=== PATIENT | female | born 1990 | race Caucasian/White ===

== ENCOUNTER 2018-04-19 21:25 | Emergency (ER) | payer MEDICAID, SELFPAY ==
[2018-04-19 21:34] VITALS: BP 124/76; PULSE 96; RESP 15; TEMP 36.7; O2SAT 97
--- NOTE | 2018-04-19 21:53 | W.ED.GENAD ---
Discharge Plan Disposition Patient Disposition: HOME Condition: Good Discharge Details Chief Complaint: RashLesion Clinical Impression: Hive, Contusion Primary Care Provider: Neema Salinas ED Provider: Anuj Cruz Home Meds and New Rx's Prescriptions: New diphenhydramine-zinc acetate [Benadryl Extra Strength] 2-0.1 % cream 1 applic TP TID Qty: 15 RF: 0 No Action levalbuterol tartrate [Xopenex HFA] 15 GM HFA aerosol inhaler 2 puff Inhalation Q6H PRN PRNQty: 1 RF: 2 epinephrine 0.3 MG/SYR auto-injector 0.3 mg IJ DAILY PRN PRNQty: 1 RF: 0 ibuprofen 600 MG tablet 600 mg PO Q6H PRN PRNQty: 30 RF: 0 Discharge Instructions Instructions: Urticaria (ED) Additional Instructions: Please apply the Benadryl cream to your left upper arm. Please apply the bacitracin Band-Aid to the lesion on your abdomen regularly. Please use Tylenol and Motrin for pain in your finger. If you notice any worsening of your symptoms, or any new symptoms such as vomiting, diarrhea, fever, chills, shortness of breath, chest pain, numbness, weakness, or fainting , please return immediately to the emergency department for reevaluation. Please follow up with your primary care provider as soon as possible for reassessment and reevaluation. As always, it was a pleasure participating in your medical care today. Referrals: Neema Salinas, [employer]ANCE CREW[employer]BER [Primary Care Provider] - Medical Decision Making This is a 28-year-old female who presents with 3 complaints. In regards to her rash on her arm her signs and symptoms are clinically indicative of mild hives, most likely secondary to contact exposure. She has multiple allergies, and she states this looks like the reaction she usually gets with grapefruit exposure, it is pruritic, no evidence of cellulitis. No other significant abnormalities. We will give her a prescription for [id number] Benadryl ointment. With no signs of systemic illness, no evidence of airway compromise, I see no clinical signs suggestive of anaphylaxis. In regards to the small lesion on her anterior abdomen. It was a blood blister with a scab that ripped off. We have given her bacitracin cream, and a Band-Aid placed over it. In regards to her hand there is no evidence of fracture or abnormality. Pain is absolutely minimal. No pain with movement of the joint. Patient does not want an x-ray. I think at the very most it is a mild sprain or contusion. No evidence of clinical fracture. Patient will be discharged home with close follow-up. We discussed red flags which return the patient understands. I have extensively reviewed the treatment plan and discharge instructions with the patient and their family. I have addressed all patient concerns at this time. The patient and family was made aware of what symptoms to monitor for that would warrant a return to the emergency department. Discussed the plan with the patient and family, they demonstrate verbal understanding and agreement with our assessment and plan at this time. HPI General Date/Time Provider Initiated Documentation: 04/19/18 21:52. HPI Narrative: This is a 28-year-old female who presents today for evaluation of 3 complaints. Planes of a rash on her left proximal arm, a small lesion on her lower abdomen, it is sore left thumb. Regards to the rash she states that roughly 2 hours prior to arrival she developed 2 small hives in the proximal posterior component of her arm. They are very itchy. She states that it looks like the reaction she usually gets when she comes in contact with grapefruit. She denies any contact with grapefruit though. She denies any systemic symptoms of difficulty breathing, difficulty swallowing, chest pain shortness of breath systemic itching or systemic rash. She denies any aggravating or relieving components. She has not taken any medications for it. Regards to lesion on her abdomen she states that 48 hours ago she was zipping up her pants and her zipper caught on a varicose vein on her anterior abdomen. There was a small blood blister that occurred, and a blood blister subsequently ruptured, now she has a very tiny hole there. She denies any significant pain, discharge, redness, or warmth. She has no other complaints in regard to this. In regard to her thumb she states that she has mild tenderness on the dorsal aspect of the MCP joint on her left thumb. She is right-hand dominant. Pain is very mild. She feels she might have hit it lightly on something. She denies any pain with movement, or any associated numbness or tingling. She has not taken any Tylenol or Motrin for the pain. Patient denies any other complaints at this time. She denies any pertinent family history or recent surgeries. She denies any IV or illicit drug use. Related Data Home Medications Medication Instructions Recorded Confirmed levalbuterol tartrate [Xopenex HFA] 2 puff INHALATION Q6H PRN PRN #1 11/18/12 04/19/18 inhaler epinephrine 0.3 mg IJ DAILY PRN PRN #1 kit 01/09/16 04/19/18 ibuprofen 600 mg PO Q6H PRN PRN #30 tab 04/06/16 04/19/18 diphenhydramine-zinc acetate 1 applic TP TID #15 gm 04/19/18 [Benadryl Extra Strength] Previous Rx's Medication Instructions Recorded epinephrine 0.3 mg IJ DAILY PRN PRN #1 kit 01/09/16 ibuprofen 600 mg PO Q6H PRN PRN #30 tab 04/06/16 diphenhydramine-zinc acetate 1 applic TP TID #15 gm 04/19/18 [Benadryl Extra Strength] Allergies Allergy/AdvReac Type Severity Reaction Status Date / Time grapefruit [Grapefruit] Allergy Severe HIVES Unverified 04/19/18 21:33 Penicillins Allergy Severe AIRWAY Unverified 04/19/18 21:33 CLOSES UP venom-honey bee Allergy Severe Swelling/Ed Unverified 04/19/18 21:33 [bee venom (honey bee)] arabella latex Allergy RASH, Unverified 04/19/18 21:33 BREAKS OUT General Stated Complaint: RashLesion MATTIE: 4 Review of Systems Review of Systems All systems reviewed & are unremarkable except as noted in HPI and below PFSH Family History Mother Mental disorder Father Multiple sclerosis Medical History Asthma Depression back spasm Social History Smoking/Tobacco Use Status: Current every day Surgical History D&C w/ Suction Ligation of fallopian tube (~11/2012) Tonsillectomy Exam Narrative Exam Narrative: 1.Const: Well-nourished, Well-developed, appearing stated age 2.Eyes: PERRL, no conjunctival injection, and symmetrical lids. 3.ENT: Atraumatic external nose and ears. Moist MM. Neck: Symmetric, trachea midline, No thyromegaly. 4.CVS: +S1/S2, No murmurs or gallops. Peripheral pulses 2+ and equal in all extremities. Brisk capillary refill in all extremities. 5.RESP: Unlabored respiratory effort. Clear to auscultation bilaterally. No wheezes rales or rhonchi 6.GI: Soft, Nontender/Nondistended, No hepatosplenomegaly. No guarding or rebound. 7.MSK: Normocephalic/Atraumatic, Extremities w/o deformity or ttp No cyanosis or clubbing, Normal movement of all extremities. Minimal tenderness on the dorsal aspect of the MCP joint on her left thumb. No significant bruising or swelling. Normal flexion extension abduction and abduction. Normal sensation including two-point discrimination. No significant bony tenderness with movement. No deformity. 8.Skin: Warm, Dry. Patient demonstrates 2 small hives on her posterior proximal left arm. There are roughly 1 cm in diameter. Notably pruritic. Blanching. No signs of fluctuance, or evidence of abscess. Patient also demonstrates a small little skin lesion on her anterior lower abdomen suggestive of a small scab that was ripped off. No active discharge, no signs of significant hole. 9.Neuro: packer denture II-XII grossly intact. Sensation grossly intact, no focal neurologic deficits. 10.Psych: (AAO) x3. Appropriate mood and affect Course Vital Signs Temperature 36.7 C 04/19/18 21:34 Pulse 96 H 04/19/18 21:34 Respiratory Rate 15 04/19/18 21:34 Blood Pressure 124/76 04/19/18 21:34 Pulse Oximetry 97 04/19/18 21:34 Temperature 36.7 C 04/19/18 21:34 Temperature Source Temporal Artery Scan 04/19/18 21:34 Pulse 96 H 04/19/18 21:34 Respiratory Rate 15 04/19/18 21:34 Respiratory Effort Non-Labored 04/19/18 21:39 Blood Pressure 124/76 04/19/18 21:34 Blood Pressure Position Sitting 04/19/18 21:34 Pulse Oximetry 97 04/19/18 21:34 Oxygen Delivery Method Room Air 04/19/18 21:34 Oxygen Flow Rate 0 04/19/18 21:34 Pain Level 0 04/19/18 21:34
[2018-04-19 22:10] VITALS: BP 124/76; PULSE 96; RESP 15; TEMP 36.7; O2SAT 97
== END 2018-04-19 22:08 | disposition home or self-care (01) ==
LOC: ER 23:05
PROVIDERS: Emergency Provider Student in an Organized Health Care Education/Training Program; PCP Nurse Practitioner Family
DX: L50.9 Urticaria, unspecified (principal); S60.112A Contusion of left thumb with damage to nail, initial encounter; X58.XXXA Exposure to other specified factors, initial encounter
CPT/HCPCS: 99283

== ENCOUNTER 2018-06-09 10:38 | Outpatient (CLI) | payer MEDICAID, SELFPAY ==
[2018-06-09 13:19] LABS: Abs Immature Grans 0.01 k/cumm (0.0-0.09); Absolute Basophil Count 0.01 k/cumm (0.0-0.2); Absolute Eosinophil Count 0.11 k/cumm (0.0-0.7); Absolute Lymphocyte Count 1.98 k/cumm (1.2-3.4); Absolute Monocyte Count 0.57 k/cumm (0.11-0.7); Absolute Neutrophil Count 4.09 k/cumm (1.2-6.7); Basophils % 0.1; Eosinophils % 1.6; HCT 40.3 % (36.0-46.0); HGB 13.4 g/dL (12.0-15.5); Immature Grans % 0.1; Lymphocytes % 29.2; Mean Corp. HGB Concentration 33.3 g/dL (32.0-36.0); Mean Corpuscular Hemoglobin 30.2 pg (27.0-33.0); Mean Corpuscular Volume 90.8 fL (80-95); Mean Platelet Volume 13.4 fL (8.0-11.0); Monocytes % 8.4; Neutrophils % 60.6; Platelet Count 138 x1000/uL (130-400); RBC 4.44 m/cumm (4.00-5.20); RBC Distribution Width 12.8 % (11.7-14.6); White Blood Cell Count 6.77 k/cumm (4.4-10.8)
[2018-06-09 13:40] LABS: Anion Gap 6.8 mmol/L (3-11); BUN 16 mg/dL (7-18); CO2 28.2 mmol/L (21.0-32.0); CREATININE 0.84 mg/dL (0.55-1.02); Calcium 8.9 mg/dL (8.5-10.1); Chloride 105 mmol/L (98-107); Cholesterol 160 mg/dL (50-200); Glucose 90 mg/dL (70-100); HDL Cholesterol 30 mg/dL (40-60); LDL CHOLESTEROL 112 mg/dL (<100); Potassium 4.3 mmol/L (3.5-5.1); Sodium 140 mmol/L (136-145); TSH 3.09 uIU/mL (0.358-3.74); Triglyceride 120 mg/dL (30-150)
[2018-06-09 14:00] LABS: FREE T4 0.91 ng/dL (0.76-1.46)
[2018-06-09 14:24] LABS: ESR 16 MM/HR (0-20)
[2018-06-10 12:14] LABS: Lyme Ab w Rflx to Lyme Confirm Negative
[2018-06-10 23:17] LABS: Anaplasma phagocytophilum Negative (Negative); B. miyamotoi PCR Negative (Negative); Babesia divergens/MO-1 Negative (Negative); Babesia duncani Negative (Negative); Babesia microti Negative (Negative); Ehrlichia chaffeensis Negative (Negative); Ehrlichia ewingii/canis Negative (Negative); Ehrlichia muris eauclairensis Negative (Negative)
== END 2018-06-09 10:58 ==
PROVIDERS: PCP Nurse Practitioner Family; Visit Provider Nurse Practitioner Family
DX: R79.89 Other specified abnormal findings of blood chemistry (principal); M25.50 Pain in unspecified joint; Z13.220 Encounter for screening for lipoid disorders
CPT/HCPCS: 36415; 80048; 80061; 83721; 85652; 84439; 84443; 85025; 86618; 87798

== ENCOUNTER 2018-12-05 11:31 | Emergency (ER) | payer SELFPAY ==
[2018-12-05 11:51] VITALS: BP 125/73; PULSE 78; RESP 16; O2SAT 96
== END 2018-12-05 12:23 ==
LOC: ER 11:47
PROVIDERS: PCP Nurse Practitioner Family
DX: Z53.21 Procedure and treatment not carried out due to patient leaving prior to being seen by health care provider (principal)

== ENCOUNTER 2019-06-16 22:07 | Emergency (ER) | payer MEDICAID, SELFPAY ==
[2019-06-16 22:13] VITALS: BP 112/68; PULSE 102; RESP 18; TEMP 37.4; O2SAT 98
--- NOTE | 2019-06-16 22:29 | ED.GENADUL_ITS ---
Discharge Plan Disposition Patient Disposition: HOME Condition: Good Discharge Details Chief Complaint: Abd Prob Clinical Impression: Nausea and vomiting, Cough, Hypokalemia Primary Care Provider: Neema Salinas ED Provider: Milton Moss and New Rx's Prescriptions: New ondansetron 4 mg tablet,disintegrating 4 mg PO Q8H PRN (Reason: nausea and vomiting) Qty: 10 RF: 0 Continued epinephrine 0.3 MG/SYR auto-injector 0.3 mg IJ DAILY PRN PRNQty: 1 RF: 0 Discharge Instructions Instructions: Acute Nausea and Vomiting (ED) Additional Instructions: Rest and try to stay hydrated. Use ondansetron as needed for nausea vomiting. Use Tylenol or Motrin as needed for discomfort or fever. Follow-up with primary care next week if not doing better. Return to ED for worsening/persistent abdominal pain, persistent vomiting, bloody diarrhea, difficulty breathing, altered mental status. Referrals: Neema Salinas, SENIOR ACCOUNTING SPECIALIST [Primary Care Provider] - Medical Decision Making Patient presenting with URI type symptoms including sinus congestion and cough with associated nausea and vomiting. She does not look toxic. Her abdomen is completely benign. Her lungs with a few scattered wheezes but she is a smoker. She has good air exchange. Essentially normal vitals. Her biggest complaint is inability to keep anything down. We will establish IV and give fluids/Zofran. Check labs including urine test. Urine test is negative. Laboratory studies look okay. Platelets just a little low. Potassium low at 3.1 and will replenish orally since her nausea is better after Zofran. Liver function normal. Urine without signs of infection. If tolerates p.o. challenge will plan discharge with ondansetron ODT for use to treat the nausea/vomiting. Patient tolerating crackers and fluids here now. We will plan discharge home. Follow-up with primary care at end of week if not better. Return to ED for persistent vomiting, persistent abdominal pain, mental status changes, difficulty breathing, other concerns. Lab Data Lab results reviewed: Yes I reviewed the patient's lab results. HPI General Mode of arrival: ambulatory . Date/Time Provider Initiated Documentation: 06/16/19 22:23 . Limitations to Documentation: no limitations . Information obtained by: patient, family and RN notes reviewed . HPI Narrative: Patient presents to ED with complaints of nausea vomiting. She reports becoming ill 3 days ago. She has sinus pain and congestion, cough, vomiting. She reports being unable to keep anything down including water. She intermittently has some abdominal pain but not consistent and not currently. She has no diarrhea. She has decreased urine output. She has felt hot and cold but has not taken her temperature. She denies any chest pain or shortness of breath. Related Data Home Medications Medication Instructions Recorded Confirmed epinephrine 0.3 mg IJ DAILY PRN PRN #1 kit 01/09/16 06/16/19 ondansetron 4 mg PO Q8H PRN #10 tab 06/16/19 Previous Rx's Medication Instructions Recorded epinephrine 0.3 mg IJ DAILY PRN PRN #1 kit 01/09/16 ondansetron 4 mg PO Q8H PRN #10 tab 06/16/19 Allergies Allergy/AdvReac Type Severity Reaction Status Date / Time grapefruit [Grapefruit] Allergy Severe HIVES Unverified 06/16/19 22:16 Penicillins Allergy Severe AIRWAY Unverified 06/16/19 22:16 CLOSES UP venom-honey bee Allergy Severe Swelling/Ed Unverified 06/16/19 22:16 [bee venom (honey bee)] arabella latex Allergy RASH, Unverified 06/16/19 22:16 BREAKS OUT General Stated Complaint: Abd Prob MATTIE: 3 Review of Systems Narrative: As documented in HPI otherwise negative as below. Const: no fever, chills, weakness Resp: cough; no SOB, pleuritic pain CV: no CP, diaphoresis, edema, syncope GI: intermittent abdominal pain, nausea, vomiting; no diarrhea Neuro: headache (sinus congestion; no numbness, focal weakness, confusion [facility] Medical History Asthma (Resolved) Depressive disorder (Chronic) Generalized anxiety disorder (Chronic) Hyperlipidemia (Chronic) Surgical History History of bilateral ligation of fallopian tubes (Acute ~11/2012) S/P dilation and curettage (Acute) For elective termination of S/P tonsillectomy (Acute ~2001) Social History Smoking/Tobacco Use Status: Current every day Alcohol Intake: never Drug use: Never Substance use type: does not use Pets and animals: Yes Pets and animals: cat(s) Sexually active: Yes Duration: decline to answer Frequency: decline to answer Lyric/Yazidi: No preference Special lyric needs: No Do you feel safe at home: Yes Do you feel safe in your relationship?: Yes Exam Narrative Exam Narrative: Vitals: Afebrile. Minimal tachycardia. Normal blood pressure and room air O2 saturation. Const: WDWN female in NAD. HEENT: NC/AT. Normal facial exam. Normal oropharynx. Normal TMs. Eyes: Normal conjunctiva and sclera. Neck: Supple. Trachea midline. Lungs: Normal respiratory effort. Lungs with scattered wheezes. Cor: RRR without murmur/gallop. Good radial pulses. GI: Soft. NT/ND. No guarding or rebound. Back: No CVAT. Neuro: A+O x 3. CN grossly in tact. Good strength and no focal deficit. Ext: No C/C/E. No deformity or tenderness. Skin: Warm and dry without rash. Course Vital Signs Vital signs: Vital Signs Temperature 99.3 F 06/16/19 22:13 Pulse 102 H 06/16/19 22:13 Respiratory Rate 18 06/16/19 22:13 Blood Pressure 112/68 06/16/19 22:13 Pulse Oximetry 98 06/16/19 22:13 Temperature 99.3 F 06/16/19 22:13 Temperature Source Skin 06/16/19 22:13 Pulse 102 H 06/16/19 22:13 Respiratory Rate 18 06/16/19 22:13 Respiratory Effort 06/16/19 22:17 Blood Pressure 112/68 06/16/19 22:13 Blood Pressure Position Sitting 06/16/19 22:13 Pulse Oximetry 98 06/16/19 22:13 Oxygen Delivery Method Room Air 06/16/19 22:13 Oxygen Flow Rate 0 06/16/19 22:13 Pain Level 7 06/16/19 22:13
[2019-06-16] MEDS: Ondansetron 4 MG/2 ML VIAL IVP (22:44)
[2019-06-16] MEDS: Lactated Ringers 1,000 ML 1000 ML IV (22:45)
[2019-06-16 22:54] LABS: Bilirubin Negative (Negative); Blood Trace-intact (Negative); Clarity Clear (Clear); Glucose Negative (Negative); Ketones Trace mg/dL (Negative); Leukocyte Esterase Negative (Negative); Nitrite Negative (Negative); pH 8.5 (5-8)
[2019-06-16 22:55] LABS: Abs Immature Grans 0.01 k/cumm (0.0-0.09); Absolute Eosinophil Count 0.01 k/cumm (0.0-0.7); Absolute Lymphocyte Count 1.16 k/cumm (1.2-3.4); Absolute Monocyte Count 0.54 k/cumm (0.11-0.7); Eosinophils % 0.2; HCT 39.1 % (36.0-46.0); HGB 13.4 g/dL (12.0-15.5); Immature Grans % 0.2 %; Lymphocytes % 28.2; Mean Corp. HGB Concentration 34.3 g/dL (32.0-36.0); Mean Corpuscular Hemoglobin 30.5 pg (27.0-33.0); Mean Corpuscular Volume 89.1 fL (80-95); Mean Platelet Volume 12.9 fL (8.0-11.0); Monocytes % 13.1; Neutrophils % 58.3; Platelet Count 123 x1000/uL (130-400); RBC 4.39 m/cumm (4.00-5.20); RBC Distribution Width 12.6 % (11.7-14.6); White Blood Cell Count 4.11 k/cumm (4.4-10.8)
[2019-06-16 22:58] LABS: Bacteria Few HPF (Negative); C & S Indicated? No; Casts Negative LPF (Negative); Crystals Negative HPF (Negative); Epithelial Cells Moderate HPF (Negative); Mucus Negative (Negative); WBC Negative HPF (0-5)
[2019-06-16 23:05] LABS: ALT 13 U/L (14-59); AST 15 U/L (15-37); Albumin 3.5 g/dL (3.4-5.0); Alkaline Phosphatase 45 U/L (46-116); Anion Gap 10.6 mmol/L (3-11); BUN 10 mg/dL (7-18); Bilirubin, Total 0.2 mg/dL (0.2-1.0); CO2 26.4 mmol/L (21.0-32.0); CREATININE 0.76 mg/dL (0.55-1.02); Calcium 8.4 mg/dL (8.5-10.1); Chloride 103 mmol/L (98-107); Glucose 102 mg/dL (74-106); Magnesium 1.7 mg/dL (1.8-2.4); Potassium 3.1 mmol/L (3.5-5.1); Sodium 140 mmol/L (136-145); Total Protein 6.9 g/dL (6.4-8.2)
[2019-06-16] MEDS: Potassium Chloride 20 MEQ TABCR 40 MEQ PO (23:38)
[2019-06-17] MEDS: Ondansetron O.D.T. 4 MG TABEF, 3 TABS/BTL PO (00:03)
[2019-06-17 00:07] VITALS: BP 125/83; PULSE 85; RESP 18; TEMP 37.1; O2SAT 98
== END 2019-06-17 00:20 | disposition home or self-care (01) ==
PROVIDERS: Emergency Provider Emergency Medicine; PCP Nurse Practitioner Family
DX: R09.81 Nasal congestion (principal); R05 Cough; R11.2 Nausea with vomiting, unspecified; E87.6 Hypokalemia; F17.210 Nicotine dependence, cigarettes, uncomplicated
CPT/HCPCS: 36415; 80053; 81025; 96361; 96374; 99284; 81003; 81015; 83735; 85025; 99283; J2405

== ENCOUNTER 2019-09-25 20:01 | Emergency (ER) | payer MEDICAID, SELFPAY ==
[2019-09-25 20:06] VITALS: BP 142/92; PULSE 78; RESP 16; TEMP 36.7; O2SAT 97
--- NOTE | 2019-09-25 20:27 | ED.GENADUL_ITS ---
Discharge Plan Disposition Patient Disposition: HOME Condition: Stable Discharge Details Chief Complaint: Allergic Clinical Impression: Adverse reaction to antidepressant drug, Nausea & vomiting Primary Care Provider: Neema Salinas ED Provider: Nicky Eaton Home Meds and New Rx's Prescriptions: New epinephrine 0.15 mg/0.3 mL auto-injector 0.15 mg IM Q30M PRN (Reason: anaphylaxis) Qty: 1 RF: 0 ondansetron HCl [Zofran] 4 mg tablet 4 mg PO Q8H PRN (Reason: nausea and vomiting) 4 Days Qty: 14 RF: 0 No Action epinephrine 0.3 MG/SYR auto-injector 0.3 mg IJ DAILY PRN PRNQty: 1 RF: 0 trazodone 50 mg tablet 50 mg PO HS RF: 0 escitalopram oxalate 10 mg tablet 10 mg PO DAILY RF: 0 Discharge Instructions Instructions: Acute Nausea and Vomiting (ED), General Allergic Reaction (ED) Additional Instructions: At this time I will refer you to Dr. Bethea regarding refill of your buspirone since it has been discontinued since February 2019. You may wish to speak with your PCP regarding the escitalopram before you restart that. Otherwise take 1 or 2 Benadryl tablets [id number] every 6-8 hours as needed for allergy type symptoms. Take nausea medication as prescribed. Return for any worsening shortness of breath, hives or concerns. Referrals: Neema Salinas, [employer] ATTENDANT [Primary Care Provider] - Medical Decision Making 29-year-old female presents with possible adverse reaction to escitalopram 10 mg to her approximately 45 minutes prior to arrival. She reports vomiting and feeling as if her throat was closing. Patient shows no significant signs of respiratory distress, no wheezing no trouble breathing. She is speaking in full sentences. She was given 25 mg p.o. Benadryl, 4 mg Zofran ODT, and 10 mg of dexamethasone p.o. while in department. 2106: Upon patient reevaluation she appears less flushed, states she feels better. Is little bit sleepy from the Benadryl. She continues to have no trouble breathing no trouble swallowing. O2 sat has remained 97% on room air or greater. Discussed home care of nausea medication and taking 1 or 2 Benadryl tablets every 6-8 hours as needed. She is requesting refill of her buspirone but when I review her medical records it appears that she was taken off that in February 2019 so at this time I will refer her to Dr. Bethea who originally prescribed her medication. HPI General Mode of arrival: ambulatory . Date/Time Provider Initiated Documentation: 09/25/19 20:02 . Limitations to Documentation: no limitations . Information obtained by: patient . HPI Narrative: 29-year-old female presents to the ED from possible allergic reaction after taking one 10 mg escitalopram tablet prior to arrival. Patient states that she vomited multiple times a pproximately 45 minutes prior to arrival. She then began feeling as if her throat was closing. No rash noted. No trouble breathing. She is speaking in full sentences. Posterior oropharynx is slightly erythemic upon initial exam lungs are clear bilaterally to auscultation. She does have a history of anxiety and states that this week her anxiety has been worse. 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 She denies drugs or alcohol. Related Data Home Medications Medication Instructions Recorded Confirmed epinephrine 0.3 mg IJ DAILY PRN PRN #1 kit 01/09/16 06/16/19 epinephrine 0.15 mg IM Q30M PRN #1 each 09/25/19 escitalopram oxalate 10 mg PO DAILY 09/25/19 09/25/19 ondansetron HCl [Zofran] 4 mg PO Q8H PRN 4 Days #14 tab 09/25/19 trazodone 50 mg PO HS 09/25/19 09/25/19 Previous Rx's Medication Instructions Recorded epinephrine 0.3 mg IJ DAILY PRN PRN #1 kit 01/09/16 epinephrine 0.15 mg IM Q30M PRN #1 each 09/25/19 ondansetron HCl [Zofran] 4 mg PO Q8H PRN 4 Days #14 tab 09/25/19 Allergies Allergy/AdvReac Type Severity Reaction Status Date / Time grapefruit [Grapefruit] Allergy Severe HIVES Unverified 09/25/19 20:10 Penicillins Allergy Severe AIRWAY Unverified 09/25/19 20:10 CLOSES UP venom-honey bee Allergy Severe Swelling/Ed Unverified 09/25/19 20:10 [bee venom (honey bee)] arabella latex Allergy RASH, Unverified 09/25/19 20:10 BREAKS OUT General Stated Complaint: Allergic MATTIE: 2 Review of Systems Narrative: Constitutional: Negative for weight loss, alert and oriented, well groomed, normal body habitus, appears comfortable. HEENT: Denies trauma, headaches, blurry vision, nasal discharge, Chest: Denies chest pain, palpitations, irregular rhythm, hypertension. Respiratory: Denies Shortness of breath, cough, hemoptysis. GI: Denies abdominal pain, nausea, vomiting, diarrhea, constipation. : Denies dysuria, hematuria, flank pain, rectal bleeding. Neuro: Denies dizziness, blurry vision, weakness, syncope, headache or facial numbness. Hematologic: Denies easy bruising, intolerance to heat or cold, hair loss. [facility] Medical History Asthma (Resolved) Depressive disorder (Chronic) Generalized anxiety disorder (Chronic) Hyperlipidemia (Chronic) Surgical History History of bilateral ligation of fallopian tubes (Acute ~11/2012) S/P dilation and curettage (Acute) For elective termination of S/P tonsillectomy (Acute ~2001) Family History Mother Cervical cancer Substance abuse Fibromyalgia Colon cancer Father , at 46 of respiratory failure Multiple sclerosis Sister Substance abuse Sister No problems noted. Sister Autism Brother Mentally challenged Daughter IBS (irritable bowel syndrome) Daughter Autism Daughter Autism on the spectrum Daughter No problems noted. Maternal Grandfather Heart disease Maternal Grandmother Breast cancer Ovarian cancer Paternal Grandfather No problems noted. Paternal Grandmother , at 96 No problems noted. Social History Smoking/Tobacco Use Status: Current every day Alcohol Intake: never Drug use: Never Substance use type: does not use Pets and animals: Yes Pets and animals: cat(s) Sexually active: Yes Duration: decline to answer Frequency: decline to answer Lyric/Nondenominational: No preference Special lyric needs: No Do you feel safe at home: Yes Do you feel safe in your relationship?: Yes Female Reproductive History Menstrual Duration of menses: 3-5 days control method: permanent sterilization Exam Narrative Exam Narrative: Constitutional: Alert and oriented x3. Appears stated age. Normal body habitus. Head: Normocephalic, no trauma. Eyes: Pupils PERRLA, Red reflex noted, EOM's intact. Eyelids symmetrical without lesions, discharge, or swelling. ENT: Bilateral TM's WNL, External ear normal to inspection, no mastoid TTP, swelling, or erythema, Nasal turbinates WNL, no nasal discharge. Normal dentition, Posterior pharynx slightly erythemic no swelling no stridor., no exudate. Chest: RRR, Normal S1, S2, distal pulses intact. Resp: Lungs clear to auscultation bilaterally, no wheezes, rales, or rhonchi. Musculoskeletal: Normal gait, 5/5 strength to all four extremities. Skin: No suspicious rashes or lesions. Capillary refill less than 2 sec. Neurologic: Cranial nerves II-XII intact. Alert and oriented x 3. DTR's intact. Hematologic/Lymphatic: No ecchymosis, no lymphadenopathy. Course Vital Signs Vital signs: Vital Signs Temperature 36.7 C 09/25/19 20:06 Pulse 78 09/25/19 20:06 Respiratory Rate 16 09/25/19 20:06 Blood Pressure 142/92 H 09/25/19 20:06 Pulse Oximetry 97 09/25/19 20:06 Temperature 36.7 C 09/25/19 20:06 Pulse 78 09/25/19 20:06 Respiratory Rate 16 09/25/19 20:06 Respiratory Effort Non-Labored 09/25/19 20:12 Blood Pressure 142/92 H 09/25/19 20:06 Pulse Oximetry 97 09/25/19 20:06 Pain Level 0 09/25/19 20:06
[2019-09-25] MEDS: Dexamethasone 10 MG/ML VIAL PO (20:38)
[2019-09-25] MEDS: diphenhydrAMINE 25 MG CAP PO (20:40)
[2019-09-25] MEDS: Ondansetron O.D.T. 4 MG TABEF PO (20:40)
[2019-09-25 21:19] VITALS: BP 140/98; PULSE 68; RESP 16; O2SAT 98
== END 2019-09-25 21:20 | disposition home or self-care (01) ==
PROVIDERS: Emergency Provider Registered Nurse Emergency; PCP Nurse Practitioner Family
DX: R11.2 Nausea with vomiting, unspecified (principal); T43.215A Adverse effect of selective serotonin and norepinephrine reuptake inhibitors, initial encounter
CPT/HCPCS: 99283; J1100

== ENCOUNTER 2020-01-19 18:13 | Emergency (ER) | payer MEDICAID, SELFPAY ==
[2020-01-19 18:19] VITALS: BP 136/86; PULSE 72; RESP 16; TEMP 36.8; O2SAT 97
--- NOTE | 2020-01-19 18:30 | ED.GENADUL_ITS ---
Discharge Plan Disposition Patient Disposition: HOME Condition: Good Discharge Details Chief Complaint: Abd Prob Clinical Impression: Abdominal pain, RUQ, Emesis Primary Care Provider: Neema Salinas ED Provider: Cassy Patel Home Meds and New Rx's Prescriptions: Continued epinephrine 0.3 MG/SYR auto-injector 0.3 mg IJ DAILY PRN PRNQty: 1 RF: 0 epinephrine 0.15 mg/0.3 mL auto-injector 0.15 mg IM Q30M PRN (Reason: anaphylaxis) Qty: 1 RF: 0 Discharge Instructions Instructions: Abdominal Pain (ED) Additional Instructions: Your exam and labs are reassuring today. Please encourage water intake. Please follow-up closely with your primary care. If you develop any recurrence of your pain or other new/worsening symptoms please seek care urgently once again. Referrals: Neema Salinas, [facility] [Primary Care Provider] - Discharge Data Discharge Date/Time-TO BE ENTERED AT DEPARTURE: 01/19/20 20:20 Medical Decision Making Patient is a pleasant 29-year-old female presenting to complaint of right upper quadrant pain. She reports that she was doing dishes when she had a sudden stabbing pain that was quite severe. She reports this pain doubled her over and caused her to vomit x1. However, she reports that pain is now subsided. Past medical history pertinent for hyperlipidemia, active smoker, anxiety and depression. She denies any change in bowel habits. Last ate approximately 6 hours ago. Past medical history pertinent for tubal ligation. Exam, patient appears nontoxic. She does appear quite anxious. We do have a aggressive, threatening and loud patient in the department. Patient reports that this is triggering her anxiety and history of PTSD. In order for further evaluation, I will give the patient an anxiolytic. At this time, patient does not have any abdominal pain. Negative Barnett sign. No pain over McBurney's point. No CVA tenderness. Patient does seem quite concerned regarding the abdominal discomfort states that it is now resolving. We will obtain baseline labs. Labs reviewed. No leukocytosis. Stable H&H. CMP without significant abnormality. Lipase within normal limits. Urinalysis contaminated but negative for leukocyte esterase or nitrates. Discussed these findings with the patient. She does feel improved after some hydration and anxiety lytic. Patient I did discuss imaging but at this point I do not feel that it is indicated. She was given return precautions. She will follow-up with her primary care. All the questions and concerns were addressed and she is in agreement this plan. HPI General Mode of arrival: ambulatory . Date/Time Provider Initiated Documentation: 01/19/20 18:30 . Limitations to Documentation: no limitations . Information obtained by: patient and RN notes reviewed . History of Present Illness 29 year old F presents to the emergency department with the chief complaint of RUQ pain, described as mild, with intensity rated at 3. Quality is described as stabbing, Patient reports no radiation. Patient started experiencing this minute(s) and it has been now resolved. No relieving factors improve symptom(s), No exacerbating factors reported . Patient notes nausea/vomiting; denies cough, fever/chills and loss of appetite. Patient did receive the following treatments prior to arrival, none Related Data Home Medications Medication Instructions Recorded Confirmed epinephrine 0.3 mg IJ DAILY PRN PRN #1 kit 01/09/16 01/19/20 epinephrine 0.15 mg IM Q30M PRN #1 each 09/25/19 01/19/20 Previous Rx's Medication Instructions Recorded epinephrine 0.3 mg IJ DAILY PRN PRN #1 kit 01/09/16 epinephrine 0.15 mg IM Q30M PRN #1 each 09/25/19 Allergies Allergy/AdvReac Type Severity Reaction Status Date / Time grapefruit [Grapefruit] Allergy Severe HIVES Unverified 01/19/20 18:24 Penicillins Allergy Severe AIRWAY Unverified 01/19/20 18:24 CLOSES UP venom-honey bee Allergy Severe Swelling/Ed Unverified 01/19/20 18:24 [bee venom (honey bee)] arabella latex Allergy RASH, Unverified 01/19/20 18:24 BREAKS OUT General Stated Complaint: Abd Prob MATTIE: 3 Review of Systems Constitutional Constitutional: Reports as per HPI, Denies chills, Denies fatigue, Denies fever(s) and Denies headache(s) ENT Ears, Nose, Mouth, and Throat: Denies headache(s) Cardiovascular Cardiovascular: Reports as per HPI, Denies chest pain and Denies dyspnea Respiratory Respiratory: Reports as per HPI, Denies cough and Denies dyspnea Gastrointestinal Gastrointestinal: Reports as per HPI Musculoskeletal Musculoskeletal: Reports as per HPI and Denies back pain Integumentary/Breasts Skin/Breast: Reports as per HPI and Denies rash Neurologic Neurologic: Reports as per HPI and Denies headache(s) Endocrine Endocrine: Denies fatigue [facility] Medical History (Updated 01/19/20 @ 20:13 by KAMERON Chen) Asthma (Resolved) Depressive disorder (Chronic) Generalized anxiety disorder (Chronic) Hyperlipidemia (Chronic) Surgical History History of bilateral ligation of fallopian tubes (Acute ~11/2012) S/P dilation and curettage (Acute) For elective termination of S/P tonsillectomy (Acute ~2001) Family History Mother Cervical cancer Substance abuse Fibromyalgia Colon cancer Father , at 46 of respiratory failure Multiple sclerosis Sister Substance abuse Sister No problems noted. Sister Autism Brother Mentally challenged Daughter IBS (irritable bowel syndrome) Daughter Autism Daughter Autism on the spectrum Daughter No problems noted. Maternal Grandfather Heart disease Maternal Grandmother Breast cancer Ovarian cancer Paternal Grandfather No problems noted. Paternal Grandmother , at 96 No problems noted. Social History Smoking/Tobacco Use Status: Current every day Alcohol Intake: current Alcohol Intake frequency: holidays/special occasions only Drug use: Never Substance use type: does not use Pets and animals: Yes Pets and animals: cat(s) Sexually active: Yes Duration: decline to answer Frequency: decline to answer Lyric/Mu-Ism: No preference Special lyric needs: No Do you feel safe at home: Yes Do you feel safe in your relationship?: Yes Female Reproductive History Menstrual Duration of menses: 3-5 days control method: permanent sterilization Exam Const General: cooperative, healthy appearing, comfortable, no acute distress and well developed Nutritional Appearance: well nourished and obese Orientation: alert and awake HENMT Head: normal to inspection Mouth: moist mucous membranes Resp Effort & Inspection: normal respiratory effort, able to speak in complete sentences and no respiratory distress Auscultation: clear to auscultation bilaterally, no rales, no rhonchi and no wheezes Cardio Rate: regular rate Rhythm: regular rhythm Heart Sounds: S1 normal and S2 normal GI Inspection: normal to inspection Palpation: soft, no hepatosplenomegaly, not firm, no guarding, no hernias, no masses, not rigid and nontender Percussion: normal to percussion Auscultation: normal bowel sounds Back/Spine/Pelvis Back: no CVA tenderness Skin General skin exam: no rashes or lesions noted Trauma: no lacerations or abrasions Neuro General: patient alert and patient awake Cognition: normal cognition Speech: speech normal Gait: normal gait Psych Appearance: grossly normal and well kempt Mental Status: mental status grossly normal Speech and Movement: speech and movement normal Course Vital Signs Vital signs: Vital Signs Temperature 36.8 C 01/19/20 18:19 Pulse 72 01/19/20 18:19 Respiratory Rate 16 01/19/20 18:19 Blood Pressure 136/86 01/19/20 18:19 Pulse Oximetry 97 01/19/20 18:19 Temperature 36.8 C 01/19/20 18:19 Temperature Source Temporal Artery Scan 01/19/20 18:19 Pulse 72 01/19/20 18:19 Respiratory Rate 16 01/19/20 18:19 Respiratory Effort Non-Labored 01/19/20 18:23 Blood Pressure 136/86 01/19/20 18:19 Blood Pressure Position Sitting 01/19/20 18:19 Pulse Oximetry 97 01/19/20 18:19 Oxygen Delivery Method Room Air 01/19/20 18:19 Oxygen Flow Rate 0 01/19/20 18:19 Pain Level 3 01/19/20 18:19
[2020-01-19 19:11] LABS: Abs Immature Grans 0.01 10^3/uL (0.0-0.06); Absolute Basophil Count 0.01 10^3/uL (0.0-0.2); Absolute Eosinophil Count 0.13 10^3/uL (0.0-0.7); Absolute Lymphocyte Count 2.47 10^3/uL (1.2-3.4); Absolute Monocyte Count 0.52 10^3/uL (0.1-0.8); Basophils % 0.1; Eosinophils % 1.6; HGB 14.3 g/dL (11.2-15.7); Immature Grans % 0.1; Lymphocytes % 29.6; MCH 29.9 pg (27.0-33.0); MCHC 33.3 % (32.0-36.0); MPV 12.3 fL (8.0-11.0); Monocytes % 6.2; Neutrophils % 62.4; Nucleated RBC 0 %; Platelet Count 169 10^3/uL (130-400); RBC 4.78 10^6/uL (3.93-5.22); RDW 11.9 % (11.7-14.6); RDW-SD 39.3 fL; WBC 8.34 10^3/uL (4.4-10.8)
[2020-01-19] MEDS: LORazepam 2 MG/ML VIAL 0.5 MG IVP (19:13)
[2020-01-19] MEDS: Lactated Ringers 1,000 ML 1000 ML IV (19:14)
[2020-01-19 19:27] LABS: ALT 18 U/L (14-59); AST 17 U/L (15-37); Albumin 3.9 g/dL (3.4-5.0); Alkaline Phosphatase 53 U/L (46-116); Anion Gap 11.6 mmol/L (3-11); BUN 12 mg/dL (7-18); Bilirubin, Total 0.3 mg/dL (0.2-1.0); CO2 26.4 mmol/L (21.0-32.0); CREATININE 0.83 mg/dL (0.55-1.02); Calcium 9.2 mg/dL (8.5-10.1); Chloride 103 mmol/L (98-107); Glucose 86 mg/dL (74-106); Lipase 142 U/L (73-393); Potassium 3.7 mmol/L (3.5-5.1); Sodium 141 mmol/L (136-145); Total Protein 7.4 g/dL (6.4-8.2)
[2020-01-19 19:40] LABS: Bilirubin Negative (Negative); Blood Negative (Negative); Clarity Clear (Clear); Glucose Negative (Negative); Ketones Negative (Negative); Leukocyte Esterase Negative (Negative); Nitrite Negative (Negative); Urobilinogen 0.2 EU/dL (Up TO 0.2); pH 5.5 (5-8)
--- NOTE | 2020-01-19 20:08 | NUR.NOTE ---
Nursing Note: Patient reports feeling much better and requesting to go home.
[2020-01-19 20:15] VITALS: PULSE 80; RESP 16; O2SAT 100
== END 2020-01-19 20:20 | disposition home or self-care (01) ==
PROVIDERS: Emergency Provider Physician Assistant; PCP Nurse Practitioner Family
DX: R10.11 Right upper quadrant pain (principal); R11.2 Nausea with vomiting, unspecified; F41.8 Other specified anxiety disorders
CPT/HCPCS: 36415; 80053; 83690; 96361; 96374; 99284; 81003; 85025; J2060

== ENCOUNTER 2020-03-18 13:42 | Outpatient (CLI) | payer MEDICAID, SELFPAY ==
[2020-03-19 18:06] LABS: COVID-19 RT-PCR Result NEGATIVE (Negative)
== END 2020-03-18 14:02 ==
PROVIDERS: PCP Nurse Practitioner Family; Visit Provider Nurse Practitioner Family
DX: R05 Cough (principal); R51.9 Headache, unspecified
CPT/HCPCS: U0003

== ENCOUNTER 2020-06-10 20:42 | Emergency (ER) | payer MEDICAID, SELFPAY ==
[2020-06-10 20:50] VITALS: BP 139/88; PULSE 74; RESP 16; TEMP 36.9; O2SAT 98
--- NOTE | 2020-06-10 20:56 | W.ED.GENAD ---
Discharge Plan Disposition Patient Disposition: HOME Condition: Good Discharge Details Clinical Impression: URI (upper respiratory infection) Primary Care Provider: Neema Salinas ED Provider: Milton Moss Home Meds and New Rx's Prescriptions: No Action No Known Home Meds RF: 0 Discharge Instructions Instructions: Pulse Oximetry (ED) Additional Instructions: Flu swab is negative. COVID testing pending. Quarantine at home as we discussed. Call primary care next week for follow up if needed before return to work. Monitor pulse ox especially if COVID comes back positive. Return to ED for mental status changes, chest pain, shortness of breath, persistent vomiting. Stand Alone Forms: PENDING COVID-19 TESTING Referrals: Neema Salinas, [facility] [Primary Care Provider] - Medical Decision Making Patient sent in from [employer] [facility] where she works because of URI symptoms and fever. She has normal vital signs here. She is nontoxic. She has normal saturations. Symptoms just started today. No known exposure to Covid but due to her place of employment will swab for flu and Covid and sent home in quarantine. Because she is a smoker with history of asthma I will send her home with portable pulse ox as well. We discussed reasons to return to emergency department. We discussed follow-up with primary care at [facility] next week. We also discussed and I provided education so that she may subsequently provide education to her employer who should be referred to the ED and who should be referred for outpatient testing. HPI General Mode of arrival: ambulatory. Date/Time Provider Initiated Documentation: 06/10/20 20:55. Limitations to Documentation: no limitations. Information obtained by: patient and RN notes reviewed. HPI Narrative: Patient developed sinus congestion, runny nose, headache and nausea today. Patient works at a local [employer]. She went into night for reading and was found to have a temperature of 100. 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 Patient denies any mental status changes, cough, shortness of breath, chest pain, abdominal pain, vomiting, diarrhea. She does have a history of asthma. She does smoke. There was a positive Covid case over a month ago at the [employer] [facility] but nothing recently. Patient otherwise has no known Covid exposure. Related Data Home Medications Medication Instructions Recorded Confirmed Unknown [No Known Home Meds] 06/10/20 06/10/20 Allergies Allergy/AdvReac Type Severity Reaction Status Date / Time grapefruit [Grapefruit] Allergy Severe HIVES Unverified 06/10/20 20:59 Penicillins Allergy Severe AIRWAY Unverified 06/10/20 20:59 CLOSES UP venom-honey bee Allergy Severe Swelling/Ed Unverified 06/10/20 20:59 [bee venom (honey bee)] arabella latex Allergy RASH, Unverified 06/10/20 20:59 BREAKS OUT General Stated Complaint: Headache MATTIE: 3 Review of Systems Narrative: As documented in HPI otherwise negative as below. Const: no chills, weakness Resp: no cough, SOB, pleuritic pain CV: no CP, diaphoresis, edema, syncope GI: no abdominal pain, vomiting, diarrhea Neuro: no numbness, focal weakness, confusion [facility] Medical History (Updated 06/10/20 @ 21:32 by Milton Moss MD) Asthma Depressive disorder Generalized anxiety disorder Hyperlipidemia Surgical History History of bilateral ligation of fallopian tubes (~11/2012) S/P dilation and curettage For elective termination of S/P tonsillectomy (~2001) Family History Mother Cervical cancer Substance abuse Fibromyalgia Colon cancer Father , at 46 of respiratory failure Multiple sclerosis Sister Substance abuse Sister No problems noted. Sister Autism Brother Mentally challenged Daughter IBS (irritable bowel syndrome) Daughter Autism Daughter Autism on the spectrum Daughter No problems noted. Maternal Grandfather Heart disease Maternal Grandmother Breast cancer Ovarian cancer Paternal Grandfather No problems noted. Paternal Grandmother , at 96 No problems noted. Social History Smoking/Tobacco Use Status: Current every day Tobacco Type: cigarettes Smoking risk assessment performed?: Yes Alcohol Intake: current Alcohol Intake frequency: holidays/special occasions only Drug use: Never Substance use type: does not use Pets and animals: Yes Pets and animals: cat(s) Sexually active: Yes Duration: decline to answer Frequency: decline to answer Lyric/Moravian: No preference Special lyric needs: No Do you feel safe at home: Yes Do you feel safe in your relationship?: Yes Female Reproductive History Menstrual Duration of menses: 3-5 days control method: permanent sterilization Exam Narrative Exam Narrative: Const: WDWN female in NAD. HEENT: NC/AT. Normal facial exam. Eyes: Normal conjunctiva and sclera. Neck: Supple. Trachea midline. Lungs: Normal respiratory effort. Lungs are clear. Cor: RRR without murmur/gallop. Good radial pulses. Neuro: A+O x 3. Normal speech, mentation, gait. Cranial nerves II - XII grossly intact. No gross motor or sensory deficit. Skin: Warm and dry without rash. Course Vital Signs Vital signs: Vital Signs Temperature 98.4 F 06/10/20 20:50 Pulse 74 06/10/20 20:50 Respiratory Rate 16 06/10/20 20:50 Blood Pressure 139/88 06/10/20 20:50 Pulse Oximetry 98 06/10/20 20:50 Temperature 98.4 F 06/10/20 20:50 Temperature Source Oral 06/10/20 20:50 Pulse 74 06/10/20 20:50 Respiratory Rate 16 06/10/20 20:50 Blood Pressure 139/88 06/10/20 20:50 Blood Pressure Position Sitting 06/10/20 20:50 Pulse Oximetry 98 06/10/20 20:50 Oxygen Delivery Method Room Air 06/10/20 20:50 Oxygen Flow Rate 0 06/10/20 20:50 Pain Level 5 06/10/20 20:50
[2020-06-10] MEDS: Acetaminophen 500 MG TAB 1000 MG PO (21:32)
[2020-06-13 11:32] LABS: COVID-19 RT-PCR UVMMC Result Negative (Negative)
--- NOTE | 2020-06-14 09:41 | NUR.NOTE ---
06/14/20 @ 0940 - after patient identity confirmed, relayed negative covid and flu results to patient.
== END 2020-06-10 22:20 | disposition home or self-care (01) ==
PROVIDERS: Emergency Provider Emergency Medicine; PCP Nurse Practitioner Family
DX: J06.9 Acute upper respiratory infection, unspecified (principal); Z03.818 Encounter for observation for suspected exposure to other biological agents ruled out
CPT/HCPCS: 87449; 99282; U0003; 99283

== ENCOUNTER 2020-06-13 09:29 | Outpatient (CLI) | payer MEDICAID, SELFPAY ==
[2020-06-13 19:55] LABS: COVID-19 RT-PCR UVMMC Result Negative (Negative)
== END 2020-06-13 09:49 ==
PROVIDERS: PCP Nurse Practitioner Family; Visit Provider Nurse Practitioner Family
DX: Z20.822 Contact with and (suspected) exposure to COVID-19 (principal)
CPT/HCPCS: U0003

== ENCOUNTER 2020-09-14 08:13 | Emergency (ER) | payer MEDICAID, SELFPAY ==
[2020-09-14 08:16] VITALS: BP 147/98; PULSE 79; RESP 18; TEMP 36.5; O2SAT 99
--- NOTE | 2020-09-14 08:40 | ED.GENADUL_ITS ---
Discharge Plan Disposition Patient Disposition: HOME Condition: Good Discharge Details Clinical Impression: Pain, dental Primary Care Provider: Neema Salinas ED Provider: Rose Mary Avitia Home Meds and New Rx's Prescriptions: New clindamycin HCl 300 mg capsule 300 mg PO Q6H Qty: 40 RF: 0 oxycodone 5 mg capsule 5 mg PO Q8H PRNQty: 3 RF: 0 No Action ipratropium-albuterol 0.5 mg-3 mg(2.5 mg base)/3 mL solution for nebulization 3 ml inhalation Q4H PRN (Reason: wheezing) Qty: 90 RF: 0 albuterol sulfate 90 mcg/actuation HFA aerosol inhaler 2 inh inhalation Q6H PRN (Reason: shortness of breath or wheezing) Qty: 18 RF: 4 Discharge Instructions Instructions: Toothache (ED) Additional Instructions: Take ibuprofen and Tylenol as needed for discomfort, I have supplied you with a small amount of opiate analgesia, this medication is addictive and should not be taken if you need to drive within 8 hours time. This medication can also cause constipation Take ibuprofen and Tylenol and the pain is not alleviated any take an additional medication supply Please take the antibiotic as prescribed Please return earlier should you have new or worsening complaints Please follow-up with your dentist at your scheduled appointment please call your dentist and let them know as they may reschedule your appt for safety You should quarantine in your home for 14 days if anyone in your household tested positive for COVID-19 and acquire Covid testing if you become symptomatic Stand Alone Forms: Work Release Medical Decision Making No significant, patient will be swabbed for COVID-19 as she has a partner that is reportedly high risk She will also notify her dentist regarding potential exposure to COVID-19 Obvious dental decay and fracture, patient will be initiated on clindamycin as she is penicillin allergic and given the very, #3, I did access PDMP and discussed risk associated with opiate analgesia in room patient discharged home in stable condition with stable vital Need for quarantine discussed and return precautions reviewed Recommended blood pressure recheck by primary care physician in the outpatient Differential Diagnosis Differential Diagnosis: Abdoulaye angina, COVID-19, dental fracture, dental abscess Medical Records Medical records reviewed: Yes I reviewed the patient's medical records. HPI This 30-year-old female presents with reported dental pain for the past 6 days. She states that she was eating a pancake and felt her to stumble. She denies chance of , chest pain, shortness of breath, difficulty swallowing. She denies fever or chills. Her is back with respiratory complaints a lthough she denies any current symptoms. He is currently reportedly being tested for COVID-19. Patient reportedly has an appointment scheduled with her dentist today to have her teeth extracted. She states that she was told to come here for antibiotic. Pain has been described as sharp and exacerbated with eating and drinking. General Date/Time Provider Initiated Documentation: 09/14/20 08:15 . Related Data Home Medications Medication Instructions Recorded Confirmed albuterol sulfate 90 mcg/actuation 2 inh INHALATION Q6H PRN #18 g 06/23/20 09/14/20 aerosol inhaler ipratropium 0.5 mg-albuterol 3 mg 3 ml INHALATION Q4H PRN #90 ml 06/24/20 09/14/20 (2.5 mg base)/3 mL nebulization soln clindamycin HCl 300 mg PO Q6H #40 cap 09/14/20 oxycodone 5 mg PO Q8H PRN #3 cap 09/14/20 Previous Rx's Medication Instructions Recorded albuterol sulfate 90 mcg/actuation 2 inh INHALATION Q6H PRN #18 g 06/23/20 aerosol inhaler ipratropium 0.5 mg-albuterol 3 mg 3 ml INHALATION Q4H PRN #90 ml 06/24/20 (2.5 mg base)/3 mL nebulization soln clindamycin HCl 300 mg PO Q6H #40 cap 09/14/20 oxycodone 5 mg PO Q8H PRN #3 cap 09/14/20 Allergies Allergy/AdvReac Type Severity Reaction Status Date / Time grapefruit [Grapefruit] Allergy Severe HIVES Unverified 09/14/20 08:19 Penicillins Allergy Severe AIRWAY Unverified 09/14/20 08:19 CLOSES UP venom-honey bee Allergy Severe Swelling/Ed Unverified 09/14/20 08:19 [bee venom (honey bee)] arabella latex Allergy RASH, Unverified 09/14/20 08:19 BREAKS OUT General Stated Complaint: DentalOral MATTIE: 4 Review of Systems Narrative: Review of systems negative times7 aside from where indicated in HPI [facility] Medical History (Updated 09/14/20 @ 08:56 by KAMERON Blum) Asthma Depressive disorder Generalized anxiety disorder Hyperlipidemia Surgical History History of bilateral ligation of fallopian tubes (~11/2012) S/P dilation and curettage For elective termination of S/P tonsillectomy (~2001) Family History Mother Cervical cancer Substance abuse Fibromyalgia Colon cancer Father , at 46 of respiratory failure Multiple sclerosis Sister Substance abuse Sister No problems noted. Sister Autism Brother Mentally challenged Daughter IBS (irritable bowel syndrome) Daughter Autism Daughter Autism on the spectrum Daughter No problems noted. Maternal Grandfather Heart disease Maternal Grandmother Breast cancer Ovarian cancer Paternal Grandfather No problems noted. Paternal Grandmother , at 96 No problems noted. Social History Smoking/Tobacco Use Status: Current every day Tobacco Type: cigarettes Smoking risk assessment performed?: Yes Alcohol Intake: current Alcohol Intake frequency: holidays/special occasions only Drug use: Never Substance use type: does not use Pets and animals: Yes Pets and animals: cat(s) Sexually active: Yes Duration: decline to answer Frequency: decline to answer Lyric/Church: No preference Special lyric needs: No Do you feel safe at home: Yes Do you feel safe in your relationship?: Yes Female Reproductive History Menstrual Duration of menses: 3-5 days control method: permanent sterilization Exam Const General: cooperative, healthy appearing and no acute distress [facility] Teeth image: 1. Fracture noted, widespread dental decay, now soft palate induration, no trismus, no palpable abscess Resp Effort & Inspection: normal respiratory effort Cardio Rate: regular rate Course Vital Signs Vital signs: Vital Signs Temperature 36.5 C 09/14/20 08:16 Pulse 79 09/14/20 08:16 Respiratory Rate 18 09/14/20 08:16 Blood Pressure 147/98 H 09/14/20 08:16 Pulse Oximetry 99 09/14/20 08:16 Temperature 36.5 C 09/14/20 08:16 Pulse 79 09/14/20 08:16 Respiratory Rate 18 09/14/20 08:16 Respiratory Effort Non-Labored 09/14/20 08:20 Blood Pressure 147/98 H 09/14/20 08:16 Blood Pressure Position Sitting 09/14/20 08:16 Pulse Oximetry 99 09/14/20 08:16 Oxygen Delivery Method Room Air 09/14/20 08:16 Oxygen Flow Rate 0 09/14/20 08:16 Pain Level 10 09/14/20 08:20
[2020-09-14 09:13] VITALS: BP 147/98; PULSE 79; RESP 18; TEMP 36.5; O2SAT 99
[2020-09-14] MEDS: Ibuprofen 600 MG TAB PO (09:13)
== END 2020-09-14 09:15 | disposition home or self-care (01) ==
PROVIDERS: Emergency Provider Physician Assistant; PCP Nurse Practitioner Family
DX: R68.84 Jaw pain (principal)
CPT/HCPCS: 99283

== ENCOUNTER 2020-11-28 06:38 | Emergency (ER) | payer MEDICAID, SELFPAY ==
[2020-11-28 06:45] VITALS: BP 131/77; PULSE 73; RESP 16; TEMP 37.1; O2SAT 98
--- NOTE | 2020-11-28 06:57 | W.ED.GENAD ---
Discharge Plan Disposition Patient Disposition: HOME Condition: Stable Discharge Details Clinical Impression: Pharyngitis Primary Care Provider: Neema Salinas ED Provider: Migel Saavedra Home Meds and New Rx's Prescriptions: Continued ipratropium-albuterol 0.5 mg-3 mg(2.5 mg base)/3 mL solution for nebulization 3 ml inhalation Q4H PRN (Reason: wheezing) Qty: 90 RF: 0 albuterol sulfate 90 mcg/actuation HFA aerosol inhaler 2 inh inhalation Q6H PRN (Reason: shortness of breath or wheezing) Qty: 18 RF: 4 Discharge Instructions Instructions: Pharyngitis (ED) Additional Instructions: you can have 1000mg tylenol and 600mg ibuprofen every 6 hours for pain as needed follow up with your primary care provider if symptoms continue this week return to the emergency department if you feel more ill, have severe worsening pain or difficulty breathing or inability to swallow any liquids Stand Alone Forms: PENDING COVID-19 TESTING, Work Release Medical Decision Making 30 yo female comes in with compaints of chills and sore throat after being outside all day [place] swim park. Denies fevers, dyspnea, known covid exposure and denies being vaccinated for covid. She appears well on exam and is speaking in full sentences in no distress. She has mild erythema of the posterior pharynx, midline uvula, no submandibular swelling and no pain over the hyoid and no restricted neck movements. Suspect pharyngitis, will test for strep and send out covid. no findings on exam to suggest rpa, workers compensation specialist, epiglotitis. She denies alcohol or drug use, does smoke. Lungs are clear, no murmurs no rashes or stigmata of endocarditis. suspect she has viral uri vs pharyngitis and given well appearance do not feel labs indicated other that strep and covid. IF strep is positive will tx with antibiotics otherwise encourage hydrated, prn tylenol and zofran and return precautions given Differential Diagnosis Differential Diagnosis: strep, viral uri, covid HPI General Mode of arrival: ambulatory. Date/Time Provider Initiated Documentation: 11/28/20 06:39. Limitations to Documentation: no limitations. Information obtained by: patient. History of Present Illness 30 year old F presents to the emergency department with the chief complaint of sore throat, described as moderate, Patient started experiencing this day(s) (1) and it has been constant. No relieving factors improve symptom(s), No exacerbating factors reported . Patient notes other (chills). Patient did receive the following treatments prior to arrival, none Related Data Home Medications Medication Instructions Recorded Confirmed albuterol sulfate 90 mcg/actuation 2 inh INHALATION Q6H PRN #18 g 06/23/20 09/14/20 aerosol inhaler ipratropium 0.5 mg-albuterol 3 mg 3 ml INHALATION Q4H PRN #90 ml 06/24/20 09/14/20 (2.5 mg base)/3 mL nebulization soln Previous Rx's Medication Instructions Recorded albuterol sulfate 90 mcg/actuation 2 inh INHALATION Q6H PRN #18 g 06/23/20 aerosol inhaler ipratropium 0.5 mg-albuterol 3 mg 3 ml INHALATION Q4H PRN #90 ml 06/24/20 (2.5 mg base)/3 mL nebulization soln Allergies Allergy/AdvReac Type Severity Reaction Status Date / Time grapefruit [Grapefruit] Allergy Severe HIVES Unverified 09/14/20 08:19 Penicillins Allergy Severe AIRWAY Unverified 09/14/20 08:19 CLOSES UP venom-honey bee Allergy Severe Swelling/Ed Unverified 09/14/20 08:19 [bee venom (honey bee)] arabella latex Allergy RASH, Unverified 09/14/20 08:19 BREAKS OUT General Stated Complaint: Sorethroat MATTIE: 4 Review of Systems All systems reviewed & are unremarkable except as noted in HPI and below Constitutional Constitutional: Denies chills Cardiovascular Cardiovascular: Denies chest pain and Denies dyspnea Respiratory Respiratory: Denies dyspnea Gastrointestinal Gastrointestinal: Denies abdominal pain and Denies vomiting [facility] Medical History (Updated 11/28/20 @ 07:02 by Migel Saavedra MD) Asthma Depressive disorder Generalized anxiety disorder Hyperlipidemia Surgical History History of bilateral ligation of fallopian tubes (~11/2012) S/P dilation and curettage For elective termination of S/P tonsillectomy (~2001) Family History Mother Cervical cancer Substance abuse Fibromyalgia Colon cancer Father , at 46 of respiratory failure Multiple sclerosis Sister Substance abuse Sister No problems noted. Sister Autism Brother Mentally challenged Daughter IBS (irritable bowel syndrome) Daughter Autism Daughter Autism on the spectrum Daughter No problems noted. Maternal Grandfather Heart disease Maternal Grandmother Breast cancer Ovarian cancer Paternal Grandfather No problems noted. Paternal Grandmother , at 96 No problems noted. Social History Smoking/Tobacco Use Status: Current every day Tobacco Type: cigarettes Smoking risk assessment performed?: Yes Alcohol Intake: current Alcohol Intake frequency: holidays/special occasions only Drug use: Never Substance use type: does not use Pets and animals: Yes Pets and animals: cat(s) Sexually active: Yes Duration: decline to answer Frequency: decline to answer Lyric/Nondenominational: No preference Special lyric needs: No Do you feel safe at home: Yes Do you feel safe in your relationship?: Yes Female Reproductive History Menstrual Duration of menses: 3-5 days control method: permanent sterilization Exam Const General: no acute distress Orientation: alert HENMT Head: normal to inspection Ears: external ears normal General nose exam: external nose normal Mouth: moist mucous membranes Eyes General: appearance normal, both eyes and all related structures Neck Neck: normal visual inspection Resp Effort & Inspection: normal respiratory effort, able to speak in complete sentences, no audible wheezes and no grunting Cardio Rate: regular rate Skin General skin exam: no rashes or lesions noted Neuro General: patient alert and patient oriented x3 Extrem General: normal to inspection Psych Mental Status: mental status grossly normal Course Vital Signs Vital signs: Vital Signs Temperature 37.1 C 11/28/20 06:45 Pulse 73 11/28/20 06:45 Respiratory Rate 16 11/28/20 06:45 Blood Pressure 131/77 11/28/20 06:45 Pulse Oximetry 98 11/28/20 06:45 Temperature 37.1 C 11/28/20 06:45 Temperature Source Skin 11/28/20 06:45 Pulse 73 11/28/20 06:45 Respiratory Rate 16 11/28/20 06:45 Respiratory Effort 11/28/20 06:50 Blood Pressure 131/77 11/28/20 06:45 Blood Pressure Position Sitting 11/28/20 06:45 Pulse Oximetry 98 11/28/20 06:45 Oxygen Delivery Method Room Air 11/28/20 06:45 Oxygen Flow Rate 0 11/28/20 06:45 Pain Level 4 11/28/20 06:45
[2020-11-28] MEDS: Dexamethasone 4 MG TAB 10 MG PO (07:04)
[2020-11-28 08:06] LABS: Source Nasal/Nares
[2020-11-28 08:16] LABS: COVID-19 PCR Negative (Negative)
--- NOTE | 2020-11-28 13:34 | NUR.NOTE ---
unable to leave message, voicemail is full.
--- NOTE | 2020-11-28 15:39 | NUR.NOTE ---
patient informed of her negative covid test result when she called.
--- NOTE | 2020-11-30 08:49 | NUR.NOTE ---
Nursing Note: 0845 attempted to call with Covid results--Mailbox full on phone. Letter with results mailed to pt.
--- NOTE | 2020-12-01 08:53 | W.ED.FU ---
Patient was evaluated on 11/28/2020 and had throat culture which shows normal kalin, no indication for antibiotic or additional intervention at this time.
== END 2020-11-28 07:37 | disposition home or self-care (01) ==
PROVIDERS: Emergency Provider Emergency Medicine; PCP Nurse Practitioner Family
DX: J02.8 Acute pharyngitis due to other specified organisms (principal); F17.210 Nicotine dependence, cigarettes, uncomplicated; Z20.822 Contact with and (suspected) exposure to COVID-19; Z03.818 Encounter for observation for suspected exposure to other biological agents ruled out
CPT/HCPCS: 87635; 87880; 99283; U0003; 87070; J8540

== ENCOUNTER 2020-12-03 23:00 | Emergency (ER) | payer MEDICAID, SELFPAY ==
[2020-12-03 23:15] VITALS: BP 126/86; PULSE 98; RESP 18; TEMP 36.7; O2SAT 99
--- NOTE | 2020-12-03 23:22 | W.ED.GENAD ---
Discharge Plan Disposition Patient Disposition: HOME Condition: Good Discharge Details Clinical Impression: Pneumonia Primary Care Provider: Neema Salinas ED Provider: Anuj Cruz Home Meds and New Rx's Prescriptions: New prednisone 50 MG tablet 50 mg PO DAILY Qty: 5 RF: 0 Continued ipratropium-albuterol 0.5 mg-3 mg(2.5 mg base)/3 mL solution for nebulization 3 ml inhalation Q4H PRN (Reason: wheezing) Qty: 90 RF: 0 benzonatate [Tessalon Perles] 100 mg capsule 100 mg PO TID PRN (Reason: cough) Qty: 14 RF: 0 albuterol sulfate [Proventil HFA] 90 mcg/actuation HFA aerosol inhaler 2 puff inhalation Q6H PRN (Reason: shortness of breath or wheezing) Qty: 8.5 RF: 0 doxycycline hyclate 100 mg tablet 100 mg PO BID 7 Days Qty: 14 RF: 0 Discharge Instructions Instructions: Pneumonia (ED) Additional Instructions: At this time you do have evidence of mild early pneumonia on your ultrasound. Please continue to take your doxycycline as directed. Please continue to take the Tessalon Perles as directed. Please use your inhaler, 2 puffs every 4-6 hours as needed. I would recommend taking 2 tablespoons of honey every 2 hours to help with the cough. You have been given the first dose of prednisone here, you will not need the second dose till tomorrow afternoon/evening. This is been sent to your pharmacy on file. As we have discussed together one of the best things you can do for the improvement of your symptoms and prevention in the future is smoking cessation. If you notice any worsening of your symptoms, or any new symptoms such as vomiting, diarrhea, fever, chills, shortness of breath, chest pain, numbness, weakness, or fainting , please return immediately to the emergency department for reevaluation. Please follow up with your primary care provider as soon as possible for reassessment and reevaluation. As always, it was a pleasure participating in your medical care today. Referrals: Neema Salinas, [facility] [Primary Care Provider] - Medical Decision Making 30-year-old female who is a regular smoker presents today for cough. Last week she has had a mild cough, she was initially seen here, and had a negative Covid and strep test. She was subsequently seen a few days ago at the recent urgent care, at which time she was given an albuterol inhaler, Tessalon Perles, recommended for continued outpatient management. She does have nebulizer solution at home. Yesterday she contacted her PCP with continued symptoms and the PCP started her on doxycycline, she has had 4 doses of this so far. She presents today for continued cough. She does states that prior to arrival she did feel somewhat short of breath, in conjunction with a notable coughing spell. She took 2 puffs of her inhaler and came here. She felt notably improved after taking the inhaler. She states that she feels well now, but was concerned with her symptoms. She denies any vomiting, chest pain, diarrhea. She is not on any control. No history of blood clots or PEs. She denies any hemoptysis. No other complaints at this time. No other modifying factors. She is still currently smoking. Exam demonstrates mild crackles in the bases, no signs of fluid overload. No history of DVT or PE. No wheezes at this time, oxygenation excellent. Heart rate stable. This time a do feel that the patient is receiving appropriate medical therapy with the doxycycline, inhalers, and Tessalon Perles. We will add prednisone to help with the reactive airway component which she seems to be having on an outpatient/at home basis. We will give a dose of prednisone here. Bedside ultrasound was performed and demonstrated B-lines and a small amount of infiltrate in the left lower lung field, as well as a small amount of B-lines in the right lower, consistent with pneumonia, but inconsistent with fluid overload or pneumothorax. Discussed red flags which to return. No indication for IV management at this time. I have extensively reviewed the treatment plan and discharge instructions with the patient. I have addressed all patient concerns at this time. The patient was made aware of what symptoms to monitor for that would warrant a return to the emergency department. Discussed the plan with the patient, they demonstrate verbal understanding and agreement with our assessment and plan at this time. The documentation in this chart was dictated using [employer] dictation software. Please excuse any dictation errors. HPI General Date/Time Provider Initiated Documentation: 12/03/20 23:01. HPI Narrative: 30-year-old female who is a regular smoker presents today for cough. Last week she has had a mild cough, she was initially seen here, and had a negative Covid and strep test. She was subsequently seen a few days ago at the recent urgent care, at which time she was given an albuterol inhaler, Tessalon Perles, recommended for continued outpatient management. She does have nebulizer solution at home. Yesterday she contacted her PCP with continued symptoms and the PCP started her on doxycycline, she has had 4 doses of this so far. She presents today for continued cough. She does states that prior to arrival she did feel somewhat short of breath, in conjunction with a notable coughing spell. She took 2 puffs of her inhaler and came here. She felt notably improved after taking the inhaler. She states that she feels well now, but was concerned with her symptoms. She denies any vomiting, chest pain, diarrhea. She is not on any control. No history of blood clots or PEs. She denies any hemoptysis. No other complaints at this time. No other modifying factors. She is still currently smoking. Related Data Home Medications Medication Instructions Recorded Confirmed ipratropium 0.5 mg-albuterol 3 mg 3 ml INHALATION Q4H PRN #90 ml 06/24/20 12/03/20 (2.5 mg base)/3 mL nebulization soln albuterol sulfate 90 mcg/actuation 2 puff INHALATION Q6H PRN #8.5 g 11/29/20 12/03/20 aerosol inhaler benzonatate 100 mg capsule 100 mg PO TID PRN #14 cap 11/29/20 12/03/20 doxycycline hyclate 100 mg tablet 100 mg PO BID 7 Days #14 tab 12/02/20 12/03/20 prednisone 50 mg PO DAILY #5 tab 12/03/20 Previous Rx's Medication Instructions Recorded ipratropium 0.5 mg-albuterol 3 mg 3 ml INHALATION Q4H PRN #90 ml 06/24/20 (2.5 mg base)/3 mL nebulization soln albuterol sulfate 90 mcg/actuation 2 puff INHALATION Q6H PRN #8.5 g 11/29/20 aerosol inhaler benzonatate 100 mg capsule 100 mg PO TID PRN #14 cap 11/29/20 doxycycline hyclate 100 mg tablet 100 mg PO BID 7 Days #14 tab 12/02/20 prednisone 50 mg PO DAILY #5 tab 12/03/20 Allergies Allergy/AdvReac Type Severity Reaction Status Date / Time grapefruit [Grapefruit] Allergy Severe HIVES Unverified 09/14/20 08:19 Penicillins Allergy Severe AIRWAY Unverified 09/14/20 08:19 CLOSES UP venom-honey bee Allergy Severe Swelling/Ed Unverified 09/14/20 08:19 [bee venom (honey bee)] arabella latex Allergy RASH, Unverified 09/14/20 08:19 BREAKS OUT General Stated Complaint: RespSymp MATTIE: 3 Review of Systems All systems reviewed & are unremarkable except as noted in HPI and below PFSH Medical History Asthma Depressive disorder Generalized anxiety disorder Hyperlipidemia Surgical History History of bilateral ligation of fallopian tubes (~11/2012) S/P dilation and curettage For elective termination of S/P tonsillectomy (~2001) Family History Mother Cervical cancer Substance abuse Fibromyalgia Colon cancer Father , at 46 of respiratory failure Multiple sclerosis Sister Substance abuse Sister No problems noted. Sister Autism Brother Mentally challenged Daughter IBS (irritable bowel syndrome) Daughter Autism Daughter Autism on the spectrum Daughter No problems noted. Maternal Grandfather Heart disease Maternal Grandmother Breast cancer Ovarian cancer Paternal Grandfather No problems noted. Paternal Grandmother , at 96 No problems noted. Social History Smoking/Tobacco Use Status: Current every day Tobacco Type: cigarettes Smoking risk assessment performed?: Yes Alcohol Intake: current Alcohol Intake frequency: holidays/special occasions only Drug use: Never Substance use type: does not use Pets and animals: Yes Pets and animals: cat(s) Sexually active: Yes Duration: decline to answer Frequency: decline to answer Lyric/Denominational: No preference Special lyric needs: No Do you feel safe at home: Yes Do you feel safe in your relationship?: Yes Female Reproductive History Menstrual Duration of menses: 3-5 days control method: permanent sterilization Exam Narrative Exam Narrative: 1.Const: Well-nourished, Well-developed, appearing stated age 2.Eyes: PERRL, no conjunctival injection, and symmetrical lids. 3.ENT: Atraumatic external nose and ears. Moist MM. Neck: Symmetric, trachea midline, No thyromegaly. 4.CVS: +S1/S2, No murmurs or gallops. Peripheral pulses 2+ and equal in all extremities. Brisk capillary refill in all extremities. 5.RESP: Unlabored respiratory effort. No wheezes or rhonchi, mild crackles in the left lower lung field, as well as slight crackle in the right lower lateral lung field 6.GI: Soft, Nontender/Nondistended, No hepatosplenomegaly. No guarding or rebound. 7.MSK: Normocephalic/Atraumatic, Extremities w/o deformity or ttp No cyanosis or clubbing, Normal movement of all extremities. No calf tenderness 8.Skin: Warm, Dry. No rashes or lesions. 9.Neuro: commissary assistant II-XII grossly intact. Sensation grossly intact, no focal neurologic deficits. 10.Psych: (AAO) x3. Appropriate mood and affect Course Vital Signs Vital signs: Vital Signs Temperature 36.7 C 12/03/20 23:15 Pulse 98 H 12/03/20 23:15 Respiratory Rate 18 12/03/20 23:15 Blood Pressure 126/86 12/03/20 23:15 Pulse Oximetry 99 12/03/20 23:15 Temperature 36.7 C 12/03/20 23:15 Temperature Source Temporal Artery Scan 12/03/20 23:15 Pulse 98 H 12/03/20 23:15 Respiratory Rate 18 12/03/20 23:15 Respiratory Effort 12/03/20 23:18 Blood Pressure 126/86 12/03/20 23:15 Blood Pressure Position Sitting 12/03/20 23:15 Pulse Oximetry 99 12/03/20 23:15 Oxygen Delivery Method Room Air 12/03/20 23:15 Oxygen Flow Rate 0 12/03/20 23:15 Pain Level 0 12/03/20 23:15
[2020-12-03] MEDS: predniSONE 20 MG TAB 60 MG PO (23:35)
== END 2020-12-03 23:40 | disposition home or self-care (01) ==
PROVIDERS: Emergency Provider Student in an Organized Health Care Education/Training Program; PCP Nurse Practitioner Family
DX: J18.8 Other pneumonia, unspecified organism (principal); F17.210 Nicotine dependence, cigarettes, uncomplicated
CPT/HCPCS: 99283; J7512

== ENCOUNTER 2020-12-10 20:22 | Emergency (ER) | payer MEDICAID, SELFPAY ==
[2020-12-10 20:28] VITALS: BP 131/68; PULSE 84; RESP 16; TEMP 36.3; O2SAT 96
--- NOTE | 2020-12-10 20:30 | RT.EKG_ITS ---
APPROVED REPORT Exam: Resting ECG Reason for Exam: chest pain Patient Location: E HR:78 bpm ECG Measurements Heart Rate 78 AXIS MI 176 P 43 QRSd 95 QRS 48 QT 399 T 14 QTc 456 Conclusion Sinus rhythm...normal P axis, V-rate 60- 99 Low voltage, precordial leads...precordial leads <1.0mV Anteroseptal infarct, age indeterminate...Q >35mS, T neg, V1-V2 Nonspecific ST-T changes
--- NOTE | 2020-12-10 21:00 | DI.RAD_ITS ---
Exam(s) XR CHEST 2V PA LATERAL EXAM: XR CHEST 2V PA LATERAL CLINICAL HISTORY: right chest pain TECHNIQUE: 2D digital imaging was performed. COMPARISON: No exams were available for comparison FINDINGS: MEDIASTINUM: Normal. HEART: Normal. PULMONARY VASCULATURE: Normal. LUNGS: Clear. PLEURAL SPACE: No pleural effusion or pneumothorax. BONE:Within normal limits for the patient's age. OTHER FINDINGS:Normal. IMPRESSION: No acute pulmonary findings. DATA REPOSITORY: RADIATION DOSE DELIVERED:
[2020-12-10 21:43] LABS: Abs Immature Grans 0.04 10^3/uL (0.0-0.06); Absolute Basophil Count 0.03 10^3/uL (0.0-0.2); Absolute Eosinophil Count 0.23 10^3/uL (0.0-0.7); Absolute Lymphocyte Count 2.72 10^3/uL (1.2-3.4); Absolute Monocyte Count 0.64 10^3/uL (0.1-0.8); Absolute Neutrophil Count 5.46 10^3/uL (1.2-6.7); Basophils % 0.3; Eosinophils % 2.5; HCT 39.7 % (36.0-46.0); HGB 13.1 g/dL (11.2-15.7); Immature Grans % 0.4; Lymphocytes % 29.8; MCH 29.4 pg (27.0-33.0); MPV 11.6 fL (8.0-11.0); Nucleated RBC 0 %; Platelet Count 202 10^3/uL (130-400); RBC 4.46 10^6/uL (3.93-5.22); RDW 12.3 % (11.7-14.6); WBC 9.12 10^3/uL (4.4-10.8)
[2020-12-10 22:06] LABS: ALT 17 U/L (14-59); AST 14 U/L (15-37); Albumin 3.2 g/dL (3.4-5.0); Alkaline Phosphatase 63 U/L (46-116); Anion Gap 9.1 mmol/L (3-11); BUN 17 mg/dL (7-18); Bilirubin, Total 0.2 mg/dL (0.2-1.0); CO2 25.9 mmol/L (21.0-32.0); CREATININE 0.9 mg/dL (0.55-1.02); Calcium 8.5 mg/dL (8.5-10.1); Chloride 107 mmol/L (98-107); Glucose 104 mg/dL (74-106); Magnesium 2.1 mg/dL (1.8-2.4); Potassium 3.3 mmol/L (3.5-5.1); Sodium 142 mmol/L (136-145); TSH 2.83 uIU/mL (0.36-3.74); Total Protein 6.6 g/dL (6.4-8.2); Troponin I < 0.05 ng/mL (<0.06)
[2020-12-10 22:21] LABS: D-Dimer 204 ng/mlFEU (<500)
--- NOTE | 2020-12-10 22:30 | DI.VRAD_ITS ---
PROCEDURE INFORMATION: Exam: XR Chest Exam date and time: 12/10/2020 9:10 PM Age: 30 years old Clinical indication: Other: Facial and arm numbness TECHNIQUE: Imaging protocol: XR of the chest. Views: 2 views. Total images: 2 COMPARISON: CR CHEST 2 VIEWS PA,LAT 06/14/2016 11:02 PM FINDINGS: Lungs: Lungs are clear without consolidation. Pulmonary connor: Unremarkable contours. Pleural spaces: No pleural effusion. No pneumothorax. Heart/Mediastinum: Unremarkable contours. No cardiomegaly. Bones/joints: Unremarkable. Intraperitoneal space: Visualized upper abdomen is unremarkable. IMPRESSION: Stable chest. No acute findings. Dictated and Authenticated by: Montrell Fernández MD. Ordering:HALEIGH Bazzi MD
--- NOTE | 2020-12-10 23:17 | W.ED.GENAD ---
Discharge Plan Disposition Patient Disposition: HOME Condition: Stable Discharge Details Clinical Impression: Chest pain, Paresthesia Primary Care Provider: Neema Salinas ED Provider: Rose Mary Avitia Home Meds and New Rx's Prescriptions: No Action ipratropium-albuterol 0.5 mg-3 mg(2.5 mg base)/3 mL solution for nebulization 3 ml inhalation Q4H PRN (Reason: wheezing) Qty: 90 RF: 0 benzonatate [Tessalon Perles] 100 mg capsule 100 mg PO TID PRN (Reason: cough) Qty: 14 RF: 0 albuterol sulfate [Proventil HFA] 90 mcg/actuation HFA aerosol inhaler 2 puff inhalation Q6H PRN (Reason: shortness of breath or wheezing) Qty: 8.5 RF: 4 prednisone 50 MG tablet 50 mg PO DAILY Qty: 5 RF: 0 Discharge Instructions Additional Instructions: Please follow-up with your primary care physician on Saturday Return earlier should you develop new or worsening complaints This is including weakness, persistent or worsening chest pain or shortness of breath Recommend you check with your doctor regarding the paresthesias and discussed risk benefits MRI to evaluate for MS at the discretion of your doctor Discharge Data Discharge Date/Time-TO BE ENTERED AT DEPARTURE: 12/10/20 23:40 Medical Decision Making I did consider more serious pathologies including Guillain-Zavala? syndrome, CVA, multiple sclerosis, unfortunately we are unable to obtain an MRI at this time and given that patient symptoms are resolving I think she stable for outpatient MRI at the discretion of her primary care provider She is alert, oriented, of decisional capacity, her chest pain has resolved and she has a negative troponin, negative EKG, negative D-dimer for acute pathology She is ambulatory with steady gait She is given low threshold to return should she have new or worsening complaints GBS consideration given recent infection, however her symptoms are not a sending and her exam is not necessarily consistent with the presentation, she is given low threshold to return should her symptoms recur Potassium was 3.3, unlikely to be contributing to patient's symptoms, will supplement at home D-dimer2 04 Bilateral involvement an unusual presentation, low suspicion for TIA or CVA . With primary care physician on Saturday Discussed smoking cessation Chest x-ray per radiology interpretation in my review does not show acute pathology Medical Records Medical records reviewed: Yes I reviewed the patient's medical records. Lab Data Lab results reviewed: Yes I reviewed the patient's lab results. ECG Data Prior ECG tracings: available for review HPI General Mode of arrival: ambulatory. Date/Time Provider Initiated Documentation: 12/10/20 20:30. Limitations to Documentation: no limitations. Information obtained by: patient. HPI Narrative: This 30-year-old female presents with report of facial numbness. She states it started in her nose and migrated to both sides of her face. She states she had perioral numbness. She denies any tongue involvement. She states she was able to swallow. She denies vision change or headache. She denies any dizziness. She has any head injury. She states that subsequently she developed palmar numbness in the absence of any other paresthesias or weakness. She states that now she has developed numbness to the dorsum of the both feet. She denies any weakness to her legs. She states that chest pain started after the facial numbness in the right side of her shoulder. She states that it radiates to her arm on the right side. She denies any pleuritic pain. She does states that she is currently being treated for pneumonia and has been taking doxycycline and prednisone. She denies any injuries. She denies chance of . She states that the pain is worsened with deep breathing. She denies prior history of similar symptoms in the past. She does not have a significant family history of multiple sclerosis. She denies personal history of multiple sclerosis. Denies recent flights, surgeries, long drives. States that the paresthesias are resolving. Denies prior history of recent MRI. Concerned that she has MS reportedly. Denies any shortness of breath at this time. States the chest pain is resolving. Denies early family history of cardiac disease less than age 5. Denies any history of hypertension but does have a reported history of hyperlipidemia. Does smoke tobacco. Denies illicit drug use. Denies chance of . Related Data Home Medications Medication Instructions Recorded Confirmed ipratropium 0.5 mg-albuterol 3 mg 3 ml INHALATION Q4H PRN #90 ml 06/24/20 12/10/20 (2.5 mg base)/3 mL nebulization soln benzonatate 100 mg capsule 100 mg PO TID PRN #14 cap 11/29/20 12/10/20 prednisone 50 mg PO DAILY #5 tab 12/03/20 12/10/20 albuterol sulfate 90 mcg/actuation 2 puff INHALATION Q6H PRN #8.5 g 12/08/20 12/10/20 aerosol inhaler Previous Rx's Medication Instructions Recorded ipratropium 0.5 mg-albuterol 3 mg 3 ml INHALATION Q4H PRN #90 ml 06/24/20 (2.5 mg base)/3 mL nebulization soln benzonatate 100 mg capsule 100 mg PO TID PRN #14 cap 11/29/20 prednisone 50 mg PO DAILY #5 tab 12/03/20 albuterol sulfate 90 mcg/actuation 2 puff INHALATION Q6H PRN #8.5 g 12/08/20 aerosol inhaler Allergies Allergy/AdvReac Type Severity Reaction Status Date / Time grapefruit [Grapefruit] Allergy Severe HIVES Unverified 12/10/20 20:32 Penicillins Allergy Severe AIRWAY Unverified 12/10/20 20:32 CLOSES UP venom-honey bee Allergy Severe Swelling/Ed Unverified 12/10/20 20:32 [bee venom (honey bee)] arabella latex Allergy RASH, Unverified 12/10/20 20:32 BREAKS OUT General Stated Complaint: FacialProb MATTIE: 3 Review of Systems All systems reviewed & are unremarkable except as noted in HPI and below PFSH Medical History (Updated 12/10/20 @ 23:18 by KAMERON Blum) Asthma Depressive disorder Generalized anxiety disorder Hyperlipidemia Surgical History History of bilateral ligation of fallopian tubes (~11/2012) S/P dilation and curettage For elective termination of S/P tonsillectomy (~2001) Family History Mother Cervical cancer Substance abuse Fibromyalgia Colon cancer Father , at 46 of respiratory failure Multiple sclerosis Sister Substance abuse Sister No problems noted. Sister Autism Brother Mentally challenged Daughter IBS (irritable bowel syndrome) Daughter Autism Daughter Autism on the spectrum Daughter No problems noted. Maternal Grandfather Heart disease Maternal Grandmother Breast cancer Ovarian cancer Paternal Grandfather No problems noted. Paternal Grandmother , at 96 No problems noted. Social History Smoking/Tobacco Use Status: Current every day Tobacco Type: cigarettes Smoking risk assessment performed?: Yes Alcohol Intake: current Alcohol Intake frequency: holidays/special occasions only Drug use: Never Substance use type: does not use Pets and animals: Yes Pets and animals: cat(s) Sexually active: Yes Duration: decline to answer Frequency: decline to answer Lyric/Jehovah'S Witness: No preference Special lyric needs: No Do you feel safe at home: Yes Do you feel safe in your relationship?: Yes Female Reproductive History Menstrual Duration of menses: 3-5 days control method: permanent sterilization Exam Const General: no acute distress Orientation: oriented x3 HENMT Head: normal to inspection Other: Mildly diminished sensation to the entire facial region, no unilateral involvement Uvula midline, speaking in complete sentences with, maintaining secretions Eyes Pupils: PERRL EOM: EOM intact bilaterally Neck Other: No carotid bruit, no midline tenderness Resp Effort & Inspection: normal respiratory effort Auscultation: clear to auscultation bilaterally Cardio Rate: regular rate Rhythm: regular rhythm GI Inspection: normal to inspection Other: Nontender No abdominal bruit or pulsatile mass Back/Spine/Pelvis Other: No thoracic or lumbar spinal tenderness Skin General skin exam: no rashes or lesions noted Neuro General: patient alert and patient oriented x3 Cranial Nerves: tongue midline Cognition: normal cognition Speech: speech normal and speech normal Gait: normal gait Other: Negative [id number], negative heel lopez, negative pronator drift, mildly diminished sensation to bilateral palmar region, preserved function to the entirety of upper and lower extremities, DTRs intact to bilateral upper and lower extremities, strength preserved bilateral upper and lower extremities Extrem Other: Neurovascularly intact to bilateral lower extremities, no tenderness to calf region, reported diminished sensation to the plantar aspect of bilateral feet, preserved sensation reportedly to the dorsal Course Vital Signs Vital signs: Vital Signs Temperature 36.3 C L 12/10/20 20:28 Pulse 84 12/10/20 20:28 Respiratory Rate 16 12/10/20 20:28 Blood Pressure 131/68 12/10/20 20:28 Pulse Oximetry 96 12/10/20 20:28 Temperature 36.3 C L 12/10/20 20:28 Temperature Source Skin 12/10/20 20:28 Pulse 84 12/10/20 20:28 Respiratory Rate 16 12/10/20 20:28 Respiratory Effort Non-Labored 12/10/20 20:33 Blood Pressure 131/68 12/10/20 20:28 Pulse Oximetry 96 12/10/20 20:28 Pain Level 5 12/10/20 20:33 Lab/Test Results Lab/Test Results: Laboratory Tests Range/Units 12/10/20 12/10/20 12/10/20 21:37 21:37 21:37 WBC (4.4-10.8) 10^3/uL 9.12 RBC (3.93-5.22) 10^6/uL 4.46 Hgb (11.2-15.7) g/dL 13.1 Hct (36.0-46.0) % 39.7 MCV (80-95) fL 89.0 MCH (27.0-33.0) pg 29.4 MCHC (32.0-36.0) % 33.0 RDW (11.7-14.6) % 12.3 Plt Count (130-400) 10^3/uL 202 MPV (8.0-11.0) fL 11.6 H Immature Gran % 0.4 Neutrophils % 60.0 Lymphocytes % 29.8 Monocytes % 7.0 Eosinophils % 2.5 Basophils % 0.3 Nucleated RBC % % 0 Absolute Neutrophils (1.2-6.7) 10^3/uL 5.46 Absolute Lymphocytes (1.2-3.4) 10^3/uL 2.72 Absolute Monocytes (0.1-0.8) 10^3/uL 0.64 Absolute Eosinophils (0.0-0.7) 10^3/uL 0.23 Absolute Basophils (0.0-0.2) 10^3/uL 0.03 D-Dimer (<500) ng/mlFEU 204 Sodium (136-145) mmol/L 142 Potassium (3.5-5.1) mmol/L 3.3 L Chloride (98-107) mmol/L 107 Carbon Dioxide (21.0-32.0) mmol/L 25.9 Anion Gap (3-11) mmol/L 9.1 BUN (7-18) mg/dL 17 Creatinine (0.55-1.02) mg/dL 0.9 Estimated GFR/1.73 m2 (mL/min/1.73m2) >= 60.00 Glucose (74-106) mg/dL 104 Calcium (8.5-10.1) mg/dL 8.5 Magnesium (1.8-2.4) mg/dL 2.1 Total Bilirubin (0.2-1.0) mg/dL 0.2 AST (15-37) U/L 14 L ALT (14-59) U/L 17 Alkaline Phosphatase (46-116) U/L 63 Troponin I (<0.06) ng/mL < 0.05 Total Protein (6.4-8.2) g/dL 6.6 Albumin (3.4-5.0) g/dL 3.2 L TSH (0.36-3.74) uIU/mL 2.83 POC- Test(urine) Negative
== END 2020-12-10 23:40 | disposition home or self-care (01) ==
PROVIDERS: Emergency Provider Physician Assistant; PCP Nurse Practitioner Family
DX: R07.89 Other chest pain (principal); R20.2 Paresthesia of skin; E87.6 Hypokalemia
CPT/HCPCS: 36415; 80053; 81025; 93005; 99285; 71046; 83735; 84443; 84484; 85025; 85379; 93010

== ENCOUNTER 2021-02-23 00:43 | Outpatient (CLI) | payer MEDICAID, SELFPAY ==
--- NOTE | 2021-02-23 06:45 | DI.MRI_ITS ---
Exam(s) MR BRAIN WO/W EXAM: MR BRAIN WO/W CLINICAL HISTORY: Facial paresthesias, BLE paresthesias, fam hx MS,R20.2,Z82.0 TECHNIQUE: Multiplanar multisequence MRI of the brain was performed. Both noninfused and contrast i nfused sequences were performed. IV Contrast injected was 19 cc Dotarem. COMPARISON: No exams were available for comparison FINDINGS: CEREBRAL PARENCHYMA: No evidence of intracranial hemorrhage, mass effect nor shift of midline structu re. No evidence of cerebellar tonsillar ectopia. No extraaxial fluid collections. Ventricles are not enlarged nor shifted. There is no significant focal signal abnormality in the cerebellar hemispheres nor within the kaylen, m idbrain, and thalami. There is no abnormal signal abnormality in the periventricular white matter. There is a solitary tin y 2-3 millimeter focus of signal abnormality in the high left parietal white matter seen on FLAIR renny ging, nonhemorrhagic, nonenhancing and not associated with restricted diffusion on DWI. This is a no nspecific finding. On the left side there is a well-defined 9 x 7 by 4 millimeter nonenhancing sublenticular cyst. There are no ring enhancing lesions in the brain. There is no abnormal meningeal enhancement. PITUITARY GLAND: No mass nor parasellar abnormality. No obvious abnormality in the cavernous sinuses. FLOW VOIDS: The expected flow void are noted. No evidence of obvious aneurysm nor obvious vascular ma lformation. No evidence of obvious venous sinus thrombosis. PARANASAL SINUSES: The visualized paranasal sinuses appear unremarkable. ORBITS: No obvious abnormal findings. IMPRESSION: 1. No evidence of demyelinating disease. 2. No abnormal enhancing intracranial findings. 3. There is a 9 x 7 x 4 millimeter nonenhancing sub lenticular cyst on the left side. This is usual ly developmental. 4. There is a solitary 2 millimeter nonspecific intra-axial FLAIR bright focus in the upper left con vexity, not associated with hemorrhage, surrounding edema, nor enhancement. This is a nonspecific fi nding and does not have the appearance of a typical MS plaque. DATA REPOSITORY:
[2021-02-23] MEDS: Gadoterate meglumine 20 ML VIAL 19 ML IVP (09:41)
== END 2021-02-23 01:03 ==
PROVIDERS: PCP Nurse Practitioner Family; Visit Provider Nurse Practitioner Family
DX: R20.2 Paresthesia of skin (principal); Z82.0 Family history of epilepsy and other diseases of the nervous system; G93.0 Cerebral cysts; R93.89 Abnormal findings on diagnostic imaging of other specified body structures
CPT/HCPCS: 70553

== ENCOUNTER 2021-07-24 15:25 | Emergency (ER) | payer MEDICAID, SELFPAY ==
[2021-07-24] VITALS (22 sets, daily range): BP systolic 85–134; BP diastolic 54–89; PULSE 97–128; RESP 16–28; TEMP 37.6; O2SAT 92–97
[2021-07-24] MEDS: Normal Saline 1,000 ML 1000 ML IV (16:10)
--- NOTE | 2021-07-24 16:14 | ED.GENADUL_ITS ---
Discharge Plan Disposition Patient Disposition: HOME Condition: Stable Discharge Details Clinical Impression: COVID-19, Hypokalemia Primary Care Provider: Neema Salinas ED Provider: Cassy Patel Home Meds and New Rx's Prescriptions: Continued albuterol sulfate [Proventil HFA] 90 mcg/actuation HFA aerosol inhaler 2 puff inhalation Q6H PRN (Reason: shortness of breath or wheezing) Qty: 8.5 4RF sertraline 50 mg tablet 75 mg PO DAILY Qty: 135 4RF Rx Instructions: Take one and a half tablets daily hydroxyzine HCl 50 mg tablet 50 mg PO TID PRN (Reason: anxiety) Qty: 90 0RF Discharge Instructions Instructions: Ondansetron (By mouth), Hypokalemia (ED), COVID-19 (Coronavirus Disease 2019) (ED) Additional Instructions: Your symptoms are consistent with COVID-19 which was confirmed with your home testing. Please continue to encourage hydration. Rest. Please continue to quarantine. You may use Tylenol and/or ibuprofen as needed for body discomfort or fevers. You may use the Zofran as prescribed to help with any recurrent nausea. If you develop shortness of breath, difficulty breathing or the new/worsening symptoms please seek care urgently once again. As we discussed, oxygen testing that goes on your finger is available at local pharmacy. You may monitor your home oxygen with 1 of these. Please stop smoking. Follow-up with your primary care in the next 1 to 2 weeks for reevaluation. Referrals: Neema Salinas, [facility] [Primary Care Provider] - Discharge Data Discharge Date/Time-TO BE ENTERED AT DEPARTURE: 07/24/21 19:15 Medical Decision Making Patient is a pleasant 31 year old female presenting today with c/c of COVID + test this AM, cough, nausea/vomiting, general body aches and fatigue. PMH signficant for smoking. She denies SOB, difficulty breahting. States initially she had soft stool but this respolve with Pepto. She denies abdominal pain. Has had fever, currently 37.6. She states she has THIBODEAUX, states has hx of migraines and feels the same. No neck pain. No rash. No sudden onset or focal deficit. On exam, patient appears nontoxic. Sh eis tachycardic at 128 with temp of 37.6. Normal HEENT exam. No nuchal rigidity. No rash. Lungs are clear. Abdomen benign. SHe had been endorsing diffuse body aches, maximal in the BLE. No swelling or calf tenderness. 2+ distal pulses. Patient has known COVID. This is likely the source of her symptoms. Will treat migraine, hydrate after her vomiting, and check baseline labs. Her tachcyardia is likely associated with fever and dehydration. Patient is low risk patient, aside from smoking she denies hx of respiratory illnesses. Lungs clear a tthis time, no hypoxia and no subjective SOB. 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 Discussed this plan with the patient and she is in agreement. Labs reviewed. K+ is low at 3.2, we will replenish this orally. She states that she is feeling much imrpoved. THIBODEAUX has resolved as has her nausea. No vomiting since being here. She is requesting d/c to home. She will be sent home with antiemetic. Patient does not qualify for COVID treatment at this time. Encouraged supportive care and symptom management. Encouraged hydration. Her HR is downtrending, she is no longer febrile. Return precautions discussed. ADvised f/u with PCP in 1-2 wks. Advised she needs to quarantine. ADvised that she could obtain pulse oximeter OTC for monitoring. All of her questions and concerns were addressed, she is in agreement with this plan. [facility] General Date/Time Provider Initiated Documentation: 07/24/21 16:00 . History of Present Illness 31 year old F presents to the emergency department with the chief complaint of COVID +, body aches, cough, sore throat, fatigue, GI upset, described as moderate, Quality is described as aching (generalized body aches), and is localized to the lower extremity (diffuse, worse in the BLE). Patient started experiencing this hour(s) (began this AM, positive test this AM) and it has been constant. improves with No relieving factors improve symptom(s), No exacerbating factors reported . Patient notes cough, fever/chills, headaches (reports hx of migraines, feels like she has one now similar to previous), loss of appetite and nausea/vomiting; denies chest pain, diaphoresis, rash, shortness of breath and syncope. Patient did receive the following treatments prior to arrival, none Related Data Home Medications Medication Instructions Recorded Confirmed albuterol sulfate 90 mcg/actuation 2 puff INHALATION Q6H PRN #8.5 g 12/08/20 07/24/21 aerosol inhaler (Proventil HFA) sertraline 50 mg tablet 75 mg PO DAILY #135 tab 04/12/21 07/24/21 hydroxyzine HCl 50 mg tablet 50 mg PO TID PRN #90 tab 05/23/21 07/24/21 Previous Rx's Medication Instructions Recorded albuterol sulfate 90 mcg/actuation 2 puff INHALATION Q6H PRN #8.5 g 12/08/20 aerosol inhaler (Proventil HFA) sertraline 50 mg tablet 75 mg PO DAILY #135 tab 04/12/21 hydroxyzine HCl 50 mg tablet 50 mg PO TID PRN #90 tab 05/23/21 Allergies Allergy/AdvReac Type Severity Reaction Status Date / Time grapefruit [Grapefruit] Allergy Severe HIVES Verified 07/24/21 15:57 Penicillins Allergy Severe AIRWAY Verified 07/24/21 15:57 CLOSES UP venom-honey bee Allergy Severe Swelling/Ed Verified 07/24/21 15:57 [bee venom (honey bee)] arabella latex Allergy RASH, Verified 07/24/21 15:57 BREAKS OUT General Stated Complaint: RespSymp MATTIE: 3 Review of Systems Constitutional Constitutional: Reports as per HPI Eyes Eyes: Reports as per HPI, Denies eye discharge and Denies irritation ENT Ears, Nose, Mouth, and Throat: Reports as per HPI Cardiovascular Cardiovascular: Reports as per HPI, Denies chest pain and Denies dyspnea Respiratory Respiratory: Reports as per HPI and Denies dyspnea Gastrointestinal Gastrointestinal: Reports as per HPI, Denies abdominal pain and Denies change in bowel habits Integumentary/Breasts Skin/Breast: Reports as per HPI and Denies rash Neurologic Neurologic: Reports as per HPI PFSH All Active Problems (Updated 07/24/21 @ 18:50 by KAMERON Chen) COVID-19 (Acute) Hypokalemia (Acute) Hyperlipidemia (Chronic) Cigarette smoker (Chronic) Generalized anxiety disorder (Chronic) Depressive disorder (Chronic) Medical History (Updated 07/24/21 @ 18:50 by KAMERON Chen) Asthma Surgical History History of bilateral ligation of fallopian tubes (~11/2012) S/P dilation and curettage For elective termination of S/P tonsillectomy (~2001) Family History Mother Cervical cancer Substance abuse Fibromyalgia Colon cancer Multiple sclerosis Father , at 46 of respiratory failure Multiple sclerosis Sister Substance abuse Multiple sclerosis Sister No problems noted. Sister Autism Brother Mentally challenged Multiple sclerosis Daughter IBS (irritable bowel syndrome) Daughter Autism Daughter Autism on the spectrum Daughter No problems noted. Maternal Grandfather Heart disease Maternal Grandmother Breast cancer Ovarian cancer Paternal Grandfather No problems noted. Paternal Grandmother , at 96 No problems noted. Social History Smoking/Tobacco Use Status: Current every day Tobacco Type: cigarettes Smoking risk assessment performed?: Yes Alcohol Intake: current Alcohol Intake frequency: holidays/special occasions only Drug use: Never Substance use type: does not use Pets and animals: Yes Pets and animals: cat(s) Sexually active: Yes Duration: decline to answer Frequency: decline to answer Lyric/Jew: No preference Special lyric needs: No Do you feel safe at home: Yes Do you feel safe in your relationship?: Yes Female Reproductive History Menstrual Duration of menses: 3-5 days control method: permanent sterilization Exam Const General: cooperative, healthy appearing, comfortable, no acute distress, well developed and well groomed Nutritional Appearance: well nourished and overweight Orientation: alert and awake [facility] Head: normal to inspection, normocephalic and atraumatic Ears: hearing grossly normal bilaterally, external ears normal and TM's normal bilaterally General nose exam: external nose normal and nares normal Face and sinus: normal facial exam, sinuses nontender and face symmetric Mouth: oral mucosae normal, lip normal, tongue normal, oropharynx normal and moist mucous membranes Teeth and gingiva: dentition normal Throat: posterior oropharynx normal, tonsils normal and uvula midline Eyes General: appearance normal, both eyes and all related structures Neck Neck: normal visual inspection, full ROM, no lymphadenopathy and no meningeal signs Resp Effort & Inspection: normal respiratory effort, able to speak in complete sentences and no respiratory distress Auscultation: clear to auscultation bilaterally, no rales, no rhonchi and no wheezes Cardio Rate: regular rate Rhythm: regular rhythm Heart Sounds: S1 normal and S2 normal GI Inspection: normal to inspection Palpation: soft and nontender Auscultation: normal bowel sounds Skin General skin exam: no rashes or lesions noted Neuro General: patient alert and patient awake Cognition: normal cognition Speech: speech normal Gait: normal gait Extrem General: normal to inspection, full ROM, capillary refill normal, no joint enlargement, no pedal edema, no calf tenderness and normal gait Psych Appearance: grossly normal and well kempt Mental Status: mental status grossly normal Speech and Movement: speech and movement normal Course Vital Signs Vital signs: Vital Signs Temperature 37.6 C H 07/24/21 15:50 Pulse 128 H 07/24/21 15:50 Respiratory Rate 16 07/24/21 15:50 Blood Pressure 134/89 07/24/21 15:50 Pulse Oximetry 95 07/24/21 15:50 Temperature 37.6 C H 07/24/21 15:50 Temperature Source Skin 07/24/21 15:50 Pulse 128 H 07/24/21 15:50 Respiratory Rate 16 07/24/21 15:50 Respiratory Effort 07/24/21 15:59 Respiratory Depth Normal 07/24/21 15:59 Blood Pressure 134/89 07/24/21 15:50 Blood Pressure Position Sitting 07/24/21 15:50 Pulse Oximetry 95 07/24/21 15:50 Oxygen Delivery Method Room Air 07/24/21 15:50 Oxygen Flow Rate 0 07/24/21 15:50 Pain Level 10 07/24/21 15:50
[2021-07-24] MEDS: diphenhydrAMINE 50 MG/ML VIAL 25 MG IVP (16:25)
[2021-07-24] MEDS: Ketorolac 15 MG/ML VIAL IVP (16:26)
[2021-07-24] MEDS: Metoclopramide 10 MG/2 ML VIAL IVP (16:26)
[2021-07-24 17:33] LABS: HCT 39.4 % (36.0-46.0); HGB 13.3 g/dL (11.2-15.7); MCH 29.8 pg (27.0-33.0); MCHC 33.8 % (32.0-36.0); MCV 88.1 fL (80-95); MPV 12.5 fL (8.0-11.0); Platelet Count 131 10^3/uL (130-400); RBC 4.47 10^6/uL (3.93-5.22); RDW 12.3 % (11.7-14.6); WBC 8.05 10^3/uL (4.4-10.8)
[2021-07-24 17:47] LABS: ALT 20 U/L (14-59); AST 17 U/L (15-37); Albumin 3.9 g/dL (3.4-5.0); Alkaline Phosphatase 44 U/L (46-116); Anion Gap 13.3 mmol/L (3-11); BUN 12 mg/dL (7-18); Bilirubin, Total 0.4 mg/dL (0.2-1.0); CO2 20.7 mmol/L (21.0-32.0); CREATININE 0.9 mg/dL (0.55-1.02); Calcium 8.8 mg/dL (8.5-10.1); Chloride 101 mmol/L (98-107); Glucose 123 mg/dL (74-106); Potassium 3.2 mmol/L (3.5-5.1); Sodium 135 mmol/L (136-145); Total Protein 7.6 g/dL (6.4-8.2)
[2021-07-24] MEDS: Ondansetron O.D.T. 4 MG TABEF, 3 TABS/BTL PO (19:12)
[2021-07-24] MEDS: POTASSIUM CHLORIDE 20 MEQ, POTASSIUM CHLORIDE 10 MEQ 30 MEQ PO (19:13)
== END 2021-07-24 19:15 | disposition home or self-care (01) ==
PROVIDERS: Emergency Provider Physician Assistant; PCP Nurse Practitioner Family
DX: U07.1 COVID-19 (principal); E87.6 Hypokalemia; R11.2 Nausea with vomiting, unspecified; R00.2 Palpitations
CPT/HCPCS: 36415; 80053; 85027; 96361; 96374; 96375; 99284; 99283; J1200; J1885; J2765

== ENCOUNTER 2021-07-30 22:50 | Emergency (ER) | payer MEDICAID, SELFPAY ==
[2021-07-30 22:57] VITALS: BP 134/98; PULSE 77; RESP 12; TEMP 36.3; O2SAT 96
--- NOTE | 2021-07-30 23:10 | ED.GENADUL_ITS ---
Discharge Plan Disposition Patient Disposition: HOME Condition: Stable Discharge Details Clinical Impression: Nausea & vomiting Primary Care Provider: Neema Salinas ED Provider: Migel Saavedra Home Meds and New Rx's Prescriptions: New ondansetron 4 mg tablet,disintegrating 4 mg PO Q8H PRN (Reason: nausea and vomiting) Qty: 30 0RF Continued albuterol sulfate [Proventil HFA] 90 mcg/actuation HFA aerosol inhaler 2 puff inhalation Q6H PRN (Reason: shortness of breath or wheezing) Qty: 8.5 4RF sertraline 50 mg tablet 75 mg PO DAILY Qty: 135 4RF Rx Instructions: Take one and a half tablets daily hydroxyzine HCl 50 mg tablet 50 mg PO TID PRN (Reason: anxiety) Qty: 90 0RF Discharge Instructions Instructions: Acute Nausea and Vomiting (ED) Additional Instructions: your blood work showed a mild increase in your liver functions tests, which is likely due to covid and the issues with vomitting you have had your cat scan did not show any emergent findings at this time if symptoms continue this week follow up with your primary care provider if you feel more ill, have severe worsening pain or difficulty breathing return to the emergency department Medical Decision Making 31 yo female who denies significant chronic medical problems comes in with n/v intermittent during the day for the past week and started after she tested positive for covid 8-9 days ago. She states she got the covid test due to body aches and tested positive, the next day started to have the n/v when she would eat or drink. Was seen here and other than mild low K no significant findings on labs and was discharged. She used the 3 zofran tabs given to her and has not had any since and is not sure if they helped. She denies abdomen pain unless she vomits then she has epigastric pain. No fevers, chest pain, dyspnea, denies alcohol or drug use and normally smokes but hasn't due to being ill the past week. She is speaking in full sentences, caox4. She has clear lungs, stable vitals, soft nontender abdomen. I suspect this is covid relatd n/v will treat with fluids and IV zofran and also evaluate for possible hepatitis vs pancreatitis and check her electrolytes. Given her benign abdominal exam doubt surgical pathology such as sbo or appendicitis and do not feel ct or other abdomen imaging indicated at this time pt stable, nausea improved with zofran, labs show mild elevation in lft's otherwise benign. On repeat exam she is having some tenderness with deep palpation to the epigastric area and ruq, given this and the elevated lft's will obtain ct to evaluate for possible cholecystitis. pt stable and feels significantly better, minimal epigastric and ruq tenderness negative sanchez's sign. CT shows no emergent findings, mild hepatomegaly and suspect right ovarian corpus luteum. No lower abdomen or pelvic pain so doubt torsion. She feels better and is stable for d/c advised to f/u with pcp if not improving and return precautions given Differential Diagnosis Differential Diagnosis: covid, gastroenteritis, enteritis Medical Records Medical records reviewed: Yes I reviewed the patient's medical records. Imaging Data Radiologic Study: Attestation: I personally reviewed and interpreted this imaging study as follows: Imaging: CT Scan Radiologist's impression: IMPRESSION: 1. No acute bowel pathology demonstrated. Normal appendix. 2. Mild hepatomegaly, 17 cm craniocaudal dimension in the midclavicular line. 3. Suspected right ovarian corpus luteum with trace right adnexal fluid, not well demonstrated by the current exam. 4. Prior bilateral tubal ligation with interval migration of the right adnexal clip into the left adnexal region since the prior exam Lab Data Lab results reviewed: Yes I reviewed the patient's lab results. HPI General Mode of arrival: ambulatory . Date/Time Provider Initiated Documentation: 07/30/21 22:51 . Limitations to Documentation: no limitations . Information obtained by: patient . History of Present Illness 31 year old F presents to the emergency department with the chief complaint of n/v, described as moderate, Patient started experiencing this week(s) (1) and it has been intermittent. improves with No relieving factors improve symptom(s), No exacerbating factors reported . Patient notes other (body aches). Patient did receive the following treatments prior to arrival, none Related Data Home Medications Medication Instructions Recorded Confirmed albuterol sulfate 90 mcg/actuation 2 puff INHALATION Q6H PRN #8.5 g 12/08/20 07/31/21 aerosol inhaler (Proventil HFA) sertraline 50 mg tablet 75 mg PO DAILY #135 tab 04/12/21 07/31/21 hydroxyzine HCl 50 mg tablet 50 mg PO TID PRN #90 tab 05/23/21 07/31/21 ondansetron 4 mg disintegrating 4 mg PO Q8H PRN #30 tab 07/31/21 tablet Previous Rx's Medication Instructions Recorded albuterol sulfate 90 mcg/actuation 2 puff INHALATION Q6H PRN #8.5 g 12/08/20 aerosol inhaler (Proventil HFA) sertraline 50 mg tablet 75 mg PO DAILY #135 tab 04/12/21 hydroxyzine HCl 50 mg tablet 50 mg PO TID PRN #90 tab 05/23/21 ondansetron 4 mg disintegrating 4 mg PO Q8H PRN #30 tab 07/31/21 tablet Allergies Allergy/AdvReac Type Severity Reaction Status Date / Time grapefruit [Grapefruit] Allergy Severe HIVES Verified 07/31/21 00:01 Penicillins Allergy Severe AIRWAY Verified 07/31/21 00:01 CLOSES UP venom-honey bee Allergy Severe Swelling/Ed Verified 07/31/21 00:01 [bee venom (honey bee)] arabella latex Allergy RASH, Verified 07/31/21 00:01 BREAKS OUT General Stated Complaint: Nausea/Vomit/Diar MATTIE: 3 Review of Systems All systems reviewed & are unremarkable except as noted in HPI and below Constitutional Constitutional: Denies chills, Denies fever(s) and Denies weakness Eyes Eyes: Denies loss of vision Cardiovascular Cardiovascular: Denies chest pain and Denies dyspnea Respiratory Respiratory: Denies cough and Denies dyspnea Genitourinary Genitourinary: Denies dysuria Integumentary/Breasts Skin/Breast: Denies rash Neurologic Neurologic: Denies loss of vision and Denies weakness PFSH All Active Problems (Updated 07/31/21 @ 01:14 by Migel Saavedra MD) COVID-19 (Acute) Hypokalemia (Acute) Nausea & vomiting (Acute) Hyperlipidemia (Chronic) Cigarette smoker (Chronic) Generalized anxiety disorder (Chronic) Depressive disorder (Chronic) Medical History (Updated 07/31/21 @ 01:14 by Migel Saavedra MD) Asthma Surgical History History of bilateral ligation of fallopian tubes (~11/2012) S/P dilation and curettage For elective termination of S/P tonsillectomy (~2001) Family History Mother Cervical cancer Substance abuse Fibromyalgia Colon cancer Multiple sclerosis Father , at 46 of respiratory failure Multiple sclerosis Sister Substance abuse Multiple sclerosis Sister No problems noted. Sister Autism Brother Mentally challenged Multiple sclerosis Daughter IBS (irritable bowel syndrome) Daughter Autism Daughter Autism on the spectrum Daughter No problems noted. Maternal Grandfather Heart disease Maternal Grandmother Breast cancer Ovarian cancer Paternal Grandfather No problems noted. Paternal Grandmother , at 96 No problems noted. Social History Smoking/Tobacco Use Status: Current every day Tobacco Type: cigarettes Smoking risk assessment performed?: Yes Alcohol Intake: current Alcohol Intake frequency: holidays/special occasions only Drug use: Never Substance use type: does not use Pets and animals: Yes Pets and animals: cat(s) Sexually active: Yes Duration: decline to answer Frequency: decline to answer Lyric/Latter-Day: No preference Special lyric needs: No Do you feel safe at home: Yes Do you feel safe in your relationship?: Yes Female Reproductive History Menstrual Duration of menses: 3-5 days control method: permanent sterilization Exam Const General: no acute distress Orientation: alert HENIN Head: normal to inspection Ears: external ears normal General nose exam: external nose normal Mouth: moist mucous membranes Eyes General: appearance normal, both eyes and all related structures Neck Neck: normal visual inspection Resp Effort & Inspection: normal respiratory effort and able to speak in complete sentences Cardio Rate: regular rate GI Palpation: soft and nontender Skin General skin exam: no rashes or lesions noted Neuro General: patient alert and patient oriented x3 Extrem General: normal to inspection Psych Mental Status: mental status grossly normal Course Vital Signs Vital signs: Vital Signs Temperature 36.3 C L 07/30/21 22:57 Pulse 77 07/30/21 22:57 Respiratory Rate 12 07/30/21 22:57 Blood Pressure 134/98 H 07/30/21 22:57 Pulse Oximetry 96 07/30/21 22:57 Temperature 36.3 C L 07/30/21 22:57 Temperature Source Temporal Artery Scan 07/30/21 22:57 Pulse 77 07/30/21 22:57 Respiratory Rate 12 07/30/21 22:57 Respiratory Effort Non-Labored 07/30/21 23:03 Blood Pressure 134/98 H 07/30/21 22:57 Blood Pressure Position Sitting 07/30/21 22:57 Pulse Oximetry 96 07/30/21 22:57 Oxygen Delivery Method Room Air 07/30/21 22:57 Oxygen Flow Rate 0 07/30/21 22:57 Comment 07/30/21 22:57
[2021-07-30] MEDS: Normal Saline 1,000 ML 1000 ML IV ×2 (23:15→23:19)
[2021-07-30] MEDS: Ondansetron 4 MG/2 ML VIAL IVP (23:19)
[2021-07-30 23:30] LABS: Abs Immature Grans 0.01 10^3/uL (0.0-0.06); Absolute Basophil Count 0.01 10^3/uL (0.0-0.2); Absolute Eosinophil Count 0.07 10^3/uL (0.0-0.7); Absolute Lymphocyte Count 1.38 10^3/uL (1.2-3.4); Absolute Monocyte Count 0.51 10^3/uL (0.1-0.8); Absolute Neutrophil Count 2.08 10^3/uL (1.2-6.7); Basophils % 0.2; Eosinophils % 1.7; HCT 40.6 % (36.0-46.0); HGB 13.9 g/dL (11.2-15.7); Immature Grans % 0.2; MCHC 34.2 % (32.0-36.0); MCV 87.5 fL (80-95); MPV 12.2 fL (8.0-11.0); Monocytes % 12.6; Neutrophils % 51.3; Nucleated RBC 0 %; Platelet Count 111 10^3/uL (130-400); RBC 4.64 10^6/uL (3.93-5.22); RDW 11.9 % (11.7-14.6); RDW-SD 38.2 fL; WBC 4.06 10^3/uL (4.4-10.8)
[2021-07-30 23:42] LABS: Bilirubin Negative (Negative); Blood Trace-intact (Negative); Clarity Sl Cloudy (Clear); Glucose Negative (Negative); Ketones Trace mg/dL (Negative); Leukocyte Esterase Negative (Negative); Nitrite Negative (Negative); Specific Gravity >= 1.030 (1.005-1.025)
--- NOTE | 2021-07-30 23:45 | DI.CT_ITS ---
Exam(s) CT ABDOMEN PELVIS W EXAM: CT ABDOMEN PELVIS W CLINICAL HISTORY: elevated lft's, ruq tenderness. TECHNIQUE: Imaging Protocol: Axial computed tomography images with coronal and sagittal reformatted images were created and reviewed CONTRAST MATERIAL: Intravenous: Omnipaque 350 Contrast volume:100 ml Oral: / no COMPARISON: CT RENAL COLIC WO CONTRAST from 04/06/2016 FINDINGS: ABDOMEN: Lung Bases: Normal where visualized. Liver: Mildly enlarged. Normal density. No measurable mass. Gallbladder and biliary tract: No radiodense calculus or dilation. Pancreas: Normal density, no abnormal calcifications or inflammatory process. Spleen: Normal. Kidneys: Normal size, contour and axis. No radiodense stones or obstructive uropathy. No masses seen. Adrenal glands: No masses seen. Abdominal Aorta: Abdominal portion non-dilated. PELVIS: Bladder: No gross wall thickening. No calculi.No focal mass. Bowel: No obstruction or bowel wall thickening. Appendix normal. Peritoneal cavity: Trace amount of fluid in the cul-de-sac, within normal limits. No focal collectio n or mesenteric inflammatory response. Bones: Within normal limits for age. Reproductive organs: Retroverted uterus. Within normal limits. Tubal ligation clips. Lymph nodes: Unremarkable. Impression: Unremarkable CT scan of the abdomen and pelvis. RADIATION DOSE DELIVERED: 1,192.03mGy.cm Total DLP DATA REPOSITORY: All CT scans at this facility are submitted to the National Radiology Data Registry (NRDR) Dose Index Registry (DIR) with the [employer] (A[employer]). RADIATION OPTIMIZATION: All CT scans at this facility use at least one of these dose optimization te chniques: automated exposure control; mA and/or kV adjustment per patient size (includes targeted exa ms where dose is matched to clinical indication); or iterative reconstruction.
[2021-07-30 23:49] LABS: WBC Negative HPF (0-5)
[2021-07-30 23:50] LABS: Bacteria Negative HPF (Negative); C & S Indicated? No; Crystals Negative HPF (Negative); Epithelial Cells Many HPF (Negative); Mucus Heavy (Negative)
[2021-07-30 23:50] LABS: ALT 78 U/L (14-59); AST 48 U/L (15-37); Albumin 3.9 g/dL (3.4-5.0); Alkaline Phosphatase 54 U/L (46-116); Anion Gap 9.1 mmol/L (3-11); BUN 14 mg/dL (7-18); Bilirubin, Direct 0.1 mg/dL (0.0-0.2); Bilirubin, Total 0.4 mg/dL (0.2-1.0); CO2 26.9 mmol/L (21.0-32.0); CREATININE 0.9 mg/dL (0.55-1.02); Calcium 8.7 mg/dL (8.5-10.1); Chloride 103 mmol/L (98-107); Glucose 77 mg/dL (74-106); Lipase 129 U/L (73-393); Magnesium 2.1 mg/dL (1.8-2.4); Potassium 3.6 mmol/L (3.5-5.1); Sodium 139 mmol/L (136-145); Total Protein 7.6 g/dL (6.4-8.2)
[2021-07-31] MEDS: Omnipaque 350 MG/ML 100 ML BTL IJ (00:08)
[2021-07-31] MEDS: Normal Saline Flush 10 ML SYR IVP (00:09)
--- NOTE | 2021-07-31 01:01 | DI.VRAD_ITS ---
PROCEDURE INFORMATION: Exam: CT Abdomen And Pelvis With Contrast Exam date and time: 07/30/2021 11:59 PM Age: 31 years old Clinical indication: Pain and abnormal findings; Abnormal lab test; Abdominal pain; Localized; Right upper quadrant (ruq); Prior surgery; Surgery date: 6+ months; Surgery type: Tubal ligation, d\T\c; Patient HX: Elevated lfts, ruq tenderness TECHNIQUE: Imaging protocol: Computed tomography of the abdomen and pelvis with contrast. Radiation optimization: All CT scans at this facility use at least one of these dose optimization techniques: automated exposure control; mA and/or kV adjustment per patient size (includes targeted exams where dose is matched to clinical indication); or iterative reconstruction. Contrast material: OMNIPAQUE 350; Contrast volume: 100 ml; Contrast route: INTRAVENOUS (IV); COMPARISON: CT RENAL COLIC WO CONTRAST 04/06/2016 9:18 PM FINDINGS: Lungs: Lung bases clear. Liver: Mild hepatomegaly, 17 cm craniocaudal dimension in the midclavicular line. Gallbladder and bile ducts: Normal appearing gallbladder. No calcified gallstones. No biliary dilatation. Pancreas: Normal appearing pancreas. Spleen: Normal appearing spleen. Adrenal glands: Adrenal glands partially obscured but grossly unremarkable, as seen. Kidneys and ureters: Normal appearing kidneys. No hydronephrosis. Stomach and bowel: No oral contrast. Stomach partially distended with ingested material. No small bowel dilatation to suggest obstruction. Normal-appearing colon. No evidence of diverticulitis or colitis. Appendix: Normal appendix. Intraperitoneal space: Suspected trace right adnexal fluid, not well demonstrated, uncertain finding. No gross ascites or free air. Vasculature: Normal caliber abdominal aorta. Lymph nodes: No pathologically enlarged mesenteric, retroperitoneal, or pelvic sidewall lymph nodes. Urinary bladder: Urinary bladder partially collapsed but grossly unremarkable, as seen. Reproductive: Retroverted uterus. Two surgical clips adjacent to the left uterine fundus. Ovaries partially obscured but normal in size. Suspected right ovarian corpus luteum with trace right adnexal fluid, not well demonstrated by the current exam. Bones/joints: No acute fracture seen among the bones of the abdomen or pelvis. Soft tissues: No significant ventral or inguinal hernia. IMPRESSION: 1. No acute bowel pathology demonstrated. Normal appendix. 2. Mild hepatomegaly, 17 cm craniocaudal dimension in the midclavicular line. 3. Suspected right ovarian corpus luteum with trace right adnexal fluid, not well demonstrated by the current exam. 4. Prior bilateral tubal ligation with interval migration of the right adnexal clip into the left adnexal region since the prior exam. Dictated and Authenticated by: Jeremías Benitez MD. Ordering:JANELLE Lainez MD
[2021-07-31] MEDS: Ondansetron O.D.T. 4 MG TABEF, 3 TABS/BTL PO (01:28)
[2021-07-31 01:29] VITALS: BP 147/96; PULSE 61; RESP 12; TEMP 36.6; O2SAT 99
[2021-08-01 11:03] LABS: Hepatitis A Antibody IgM Negative (Negative); Hepatitis B Core Antibody Negative (Negative); Hepatitis B surface Ag Negative (Negative); Hepatitis C Ab w Rflx HCV PCR Negative (Negative)
== END 2021-07-31 01:39 | disposition home or self-care (01) ==
PROVIDERS: Emergency Provider Emergency Medicine; PCP Nurse Practitioner Family
DX: R11.2 Nausea with vomiting, unspecified (principal); R94.5 Abnormal results of liver function studies; R10.11 Right upper quadrant pain; U07.1 COVID-19
CPT/HCPCS: 80053; 81025; 83690; 86704; 86709; 86803; 87340; 96361; 96374; 99285; 74177; 81003; 81015; 82248; 83735; 85025; 99284; J2405; J3490

== ENCOUNTER 2021-10-24 18:34 | Emergency (ER) | payer MEDICAID, SELFPAY ==
[2021-10-24 18:46] VITALS: BP 146/79; PULSE 101; RESP 18; TEMP 37.2; O2SAT 99
--- NOTE | 2021-10-24 19:07 | ED.GENADUL_ITS ---
Discharge Plan Disposition Patient Disposition: HOME Condition: Stable Discharge Details Clinical Impression: Paraspinal muscle spasm, Sunburn Primary Care Provider: Neema Salinas ED Provider: Macario Weinberg Home Meds and New Rx's Prescriptions: New ibuprofen 600 mg tablet 600 mg PO Q8H PRN (Reason: pain) Qty: 60 0RF Continued albuterol sulfate [Proventil HFA] 90 mcg/actuation HFA aerosol inhaler 2 puff inhalation Q6H PRN (Reason: shortness of breath or wheezing) Qty: 8.5 4RF sertraline 50 mg tablet 75 mg PO DAILY Qty: 135 4RF Rx Instructions: Take one and a half tablets daily hydroxyzine HCl 50 mg tablet 50 mg PO TID PRN (Reason: anxiety) Qty: 90 0RF ondansetron 4 mg tablet,disintegrating 4 mg PO Q8H PRN (Reason: nausea and vomiting) Qty: 30 0RF Discharge Instructions Instructions: Sunburn (ED), Muscle Spasm (ED) Additional Instructions: Please drink plenty of clear liquids like water or Gatorade to stay hydrated. Dehydration can increase risk of muscle spasm. Please take ibuprofen -- Take 600mg by mouth every 6 hours as needed for pain. Please use lidocaine patches. These are available [id number]. Dose according to label. Use zinc based sunscreen to protect your skin. Please contact your primary care physician to arrange follow-up. Return to the ER immediately for any worsening or new concerning symptoms. Stand Alone Forms: Work Release Referrals: Neema Salinas NP [Primary Care Provider] - Discharge Data Discharge Date/Time-TO BE ENTERED AT DEPARTURE: 10/24/21 20:08 Medical Decision Making 31-year-old female here with right thoracic paraspinal tenderness with spasm. No midline tenderness. No urinary symptoms. I will treat for muscle spasm with Toradol 30 mg IM, Valium 5 mg p.o. and lidocaine patch. -- Patient reassessed and did have some improvement in pain. Plan for outpatient follow-up with PCP. Usual customary discharge instructions reviewed with the patient. HPI General Mode of arrival: ambulatory . Date/Time Provider Initiated Documentation: 10/24/21 18:43 . Limitations to Documentation: no limitations . Information obtained by: patient . HPI Narrative: 31-year-old female presents with chief complaint of right-sided back pain. Patient notes pain started yesterday around 5 PM after work. 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 Pain is localized to right mid back and radiates up and down. Pain is sharp and electric at times with certain movements. She denies associated fever. No rash. No urinary symptoms. Patient denies focal trauma. Related Data Home Medications Medication Instructions Recorded Confirmed albuterol sulfate 90 mcg/actuation 2 puff inhalation Q6H PRN 12/08/20 10/24/21 aerosol inhaler (Proventil HFA) shortness of breath or wheezing #8.5 grams sertraline 50 mg tablet 75 mg PO DAILY #135 tabs 04/12/21 10/24/21 hydroxyzine HCl 50 mg tablet 50 mg PO TID PRN anxiety #90 tabs 05/23/21 10/24/21 ondansetron 4 mg disintegrating 4 mg PO Q8H PRN nausea and 07/31/21 10/24/21 tablet vomiting #30 tabs ibuprofen 600 mg tablet 600 mg PO Q8H PRN pain #60 tabs 10/24/21 Previous Rx's Medication Instructions Recorded albuterol sulfate 90 mcg/actuation 2 puff inhalation Q6H PRN 12/08/20 aerosol inhaler (Proventil HFA) shortness of breath or wheezing #8.5 grams sertraline 50 mg tablet 75 mg PO DAILY #135 tabs 04/12/21 hydroxyzine HCl 50 mg tablet 50 mg PO TID PRN anxiety #90 tabs 05/23/21 ondansetron 4 mg disintegrating 4 mg PO Q8H PRN nausea and 07/31/21 tablet vomiting #30 tabs ibuprofen 600 mg tablet 600 mg PO Q8H PRN pain #60 tabs 10/24/21 Allergies Allergy/AdvReac Type Severity Reaction Status Date / Time grapefruit [Grapefruit] Allergy Severe HIVES Verified 10/24/21 18:53 Penicillins Allergy Severe AIRWAY Verified 10/24/21 18:53 CLOSES UP venom-honey bee Allergy Severe Swelling/Ed Verified 10/24/21 18:53 [bee venom (honey bee)] arabella latex Allergy RASH, Verified 10/24/21 18:53 BREAKS OUT General Stated Complaint: Nk/Back Pain MATTIE: 4 Review of Systems All systems reviewed & are unremarkable except as noted in HPI and below Constitutional Constitutional: Denies fever(s) Gastrointestinal Gastrointestinal: Denies abdominal pain Musculoskeletal Musculoskeletal: Reports as per HPI PFSH All Active Problems (Updated 10/24/21 @ 19:26 by Macario Weinberg MD) COVID-19 (Acute) Paraspinal muscle spasm (Acute) Sunburn (Acute) Hyperlipidemia (Chronic) Cigarette smoker (Chronic) Generalized anxiety disorder (Chronic) Depressive disorder (Chronic) Medical History (Updated 10/24/21 @ 19:26 by Macario Weinberg MD) Asthma Surgical History History of bilateral ligation of fallopian tubes (~11/2012) S/P dilation and curettage For elective termination of S/P tonsillectomy (~2001) Family History Mother Cervical cancer Substance abuse Fibromyalgia Colon cancer Multiple sclerosis Father , at 46 of respiratory failure Multiple sclerosis Sister Substance abuse Multiple sclerosis Sister No problems noted. Sister Autism Brother Mentally challenged Multiple sclerosis Daughter IBS (irritable bowel syndrome) Daughter Autism Daughter Autism on the spectrum Daughter No problems noted. Maternal Grandfather Heart disease Maternal Grandmother Breast cancer Ovarian cancer Paternal Grandfather No problems noted. Paternal Grandmother , at 96 No problems noted. Social History Smoking/Tobacco Use Status: Current every day Tobacco Type: cigarettes Smoking risk assessment performed?: Yes Alcohol Intake: current Alcohol Intake frequency: holidays/special occasions only Drug use: Never Substance use type: does not use Pets and animals: Yes Pets and animals: cat(s) Sexually active: Yes Duration: decline to answer Frequency: decline to answer Lyric/Moravian: No preference Special lyric needs: No Do you feel safe at home: Yes Do you feel safe in your relationship?: Yes Female Reproductive History Menstrual Duration of menses: 3-5 days control method: permanent sterilization Exam Const General: cooperative and no acute distress Orientation: alert and awake HENMT Mouth: moist mucous membranes Eyes Conjunctivae: normal conjunctivae Sclera: normal sclerae Resp Auscultation: clear to auscultation bilaterally, no rales, no rhonchi and no wheezes Cardio Rate: regular rate and not tachycardic Rhythm: regular rhythm GI Palpation: soft, not firm, no guarding, no masses, not rigid and nontender Back/Spine/Pelvis Cervical Spine: No cervical spinal tenderness Thoracic/Lumbar Spine: paraspinal tenderness (rt thoracic), thoraco-lumbar spasm (rt), No thoracic spinal tenderness and No lumbar spinal tenderness Skin Rashes: rashes noted (sunburn) Neuro General: patient alert, patient awake and tone normal Extrem General: no edema Psych Appearance: grossly normal Mental Status: mental status grossly normal Course Vital Signs Vital signs: Vital Signs Temperature 37.2 C 10/24/21 18:46 Pulse 101 H 10/24/21 18:46 Respiratory Rate 18 10/24/21 18:46 Blood Pressure 146/79 H 10/24/21 18:46 Pulse Oximetry 99 10/24/21 18:46 Temperature 37.2 C 10/24/21 18:46 Temperature Source Tympanic 10/24/21 18:46 Pulse 101 H 10/24/21 18:46 Respiratory Rate 18 10/24/21 18:46 Respiratory Effort 10/24/21 18:55 Blood Pressure 146/79 H 10/24/21 18:46 Blood Pressure Position Sitting 10/24/21 18:46 Pulse Oximetry 99 10/24/21 18:46 Oxygen Delivery Method Room Air 10/24/21 18:46 Oxygen Flow Rate 0 10/24/21 18:46 Pain Level 10 10/24/21 18:55
[2021-10-24] MEDS: diazePAM 5 MG TAB PO (19:17)
[2021-10-24] MEDS: Ketorolac 30 MG/ML VIAL IM (19:17)
[2021-10-24] MEDS: Lidocaine 5% Patch 1 PATCH TP (19:18)
== END 2021-10-24 20:08 | disposition home or self-care (01) ==
PROVIDERS: Emergency Provider Student in an Organized Health Care Education/Training Program; PCP Nurse Practitioner Family
DX: M62.830 Muscle spasm of back (principal); L55.9 Sunburn, unspecified
CPT/HCPCS: 96372; 99284; 99283; J1885

== ENCOUNTER 2022-04-10 02:48 | Emergency (ER) | payer MEDICAID, SELFPAY ==
--- NOTE | 2022-04-10 02:53 | ED.GENADUL_ITS ---
Discharge Plan Disposition Patient Disposition: AGAINST MEDICAL ADVICE Condition: Improving Discharge Details Clinical Impression: Chronic abdominal pain, Chronic vomiting, Chronic diarrhea Primary Care Provider: Neema Salinas ED Provider: Sierra Gipson Home Meds and New Rx's Prescriptions: New famotidine [Pepcid] 20 mg tablet 20 mg PO DAILY Qty: 14 0RF ondansetron 4 mg tablet,disintegrating 4 mg PO TID PRN (Reason: nausea and vomiting) Qty: 6 0RF Continued albuterol sulfate [Proventil HFA] 90 mcg/actuation HFA aerosol inhaler 2 puff inhalation Q6H PRN (Reason: shortness of breath or wheezing) Qty: 8.5 4RF sertraline 50 mg tablet 75 mg PO DAILY Qty: 135 4RF Rx Instructions: Take one and a half tablets daily hydroxyzine HCl 50 mg tablet 50 mg PO TID PRN (Reason: anxiety) Qty: 90 0RF ondansetron 4 mg tablet,disintegrating 4 mg PO Q8H PRN (Reason: nausea and vomiting) Qty: 30 0RF ibuprofen 600 mg tablet 600 mg PO Q8H PRN (Reason: pain) Qty: 60 0RF Discharge Instructions Instructions: Acute Nausea and Vomiting (ED), Chronic Diarrhea (ED), Chronic Abdominal Pain (ED) Additional Instructions: You are leaving the hospital AGAINST MEDICAL ADVICE prior to the results of your CT scan of your abdomen. You will be notified if your CT scan shows any abnormal findings. Drink plenty of fluids and get plenty of rest. Alternate tylenol and motrin as needed and directed for pain. Prescriptions for Zofran and Pepcid have been sent electronically to your pharmacy. You have been placed on general surgery follow-up list for your chronic abdominal pain, vomiting and diarrhea for reevaluation and consideration for upper endoscopy and/or colonoscopy. Return immediately to the emergency department if you develop any worsening or new concerning symptoms. Referrals: Jocelyn Arreaga DO [OSTEOPATHIC DOCTOR] - Discharge Data Discharge Date/Time-TO BE ENTERED AT DEPARTURE: 04/10/22 05:36 Discharge Physician: Sierra Gipson Medical Decision Making 0300 -- 32-year-old female presents for diffuse abdominal pain, vomiting and diarrhea for the past week with similar episodes occurring once monthly for the past 2 years. Vitals within normal limits. Patient appears comfortable and nontoxic. Her abdomen is soft and obese and tender in the lower quadrants. She has no rigidity or guarding. Differential diagnosis includes UTI, gastroenteritis, diet related, medications, appendicitis, diverticulitis. History and presentation does not appear consistent with AAA, small bowel obstruction. We will place an IV, bolus IV fluids, screening labs, urinalysis, CT abdomen and pelvis and give fluids, IV Tylenol, IV Toradol, IV Zofran and reassess. 0440 -- Labs reviewed. Normal white blood cell count. Normal electrolytes. Lipase within normal limits. Urinalysis notes blood but no evidence of infection. Fluvid pending. Patient reassessed and she feels much better. Notified patient that CT scanning may take at least 100 minutes for results. Patient states she needs to go home as her ride needs to go home to sleep. Patient appears comfortable and nontoxic. I do not see any obvious findings on CT scan. Discussed with patient that as she is leaving prior to results of the CT scan, this may lead to delayed or missed diagnoses with increased risk of disability or and she understands and would still like to leave. She demonstrates capacity to make decisions. AMA form signed. She was placed on general surgery follow-up list for reevaluation of her chronic abdominal pain, vomiting and diarrhea. She was given Zofran to go. Prescriptions for Zofran and Pepcid sent electronically to her pharmacy. Usual and customary return precautions given prior to leaving. 0600 --CT resulted and negative for acute findings. Fluvid negative. Medical Records Medical records reviewed: Yes I reviewed the patient's medical records. Imaging Data Radiologic Study: Radiologist's impression: CT Abdomen And Pelvis With Contrast Exam date and time: 04/10/2022 4:01 AM Age: 32 years old Clinical indication: Nausea and vomiting; Abdominal pain; Generalized; Prior surgery; Surgery date: 6+ months; Surgery type: Tubal ligation; Patient HX: Diffuse abd pain, vomiting, diarrhea of and on for months TECHNIQUE: Imaging protocol: Computed tomography of the abdomen and pelvis with contrast. Radiation optimization: All CT scans at this facility use at least one of these dose optimization techniques: automated exposure control; mA and/or kV adjustment per patient size (includes targeted exams where dose is matched to clinical indication); or iterative reconstruction. Contrast material: OMNIPAQUE 350; Contrast volume: 100 ml; Contrast route: INTRAVENOUS (IV);? COMPARISON: CT ABDOMEN PELVIS W 07/31/2021 12:12 AM. Report not available. FINDINGS: Liver:? No focal hepatic lesion identified.? Gallbladder and bile ducts: Contracted gallbladder, likely accounting for mural thickening. Pancreas:? No CT evidence for acute pancreatitis.? Spleen: Splenomegaly. Adrenal glands: No mass. Kidneys and ureters:? No hydronephrosis or evidence for pyelonephritis.? Stomach and bowel: The ascending colon appears mildly thickened but is incompletely distended. Intramural fat deposition in the colon, nonspecific but can be seen in chronic inflammatory conditions. Please correlate clinically. Appendix: Normal appendix. Intraperitoneal space: No free air. Vasculature: No abdominal aortic aneurysm. Lymph nodes: Nonspecific mesenteric lymph nodes. Urinary bladder: No acute findings. Reproductive: 2 cm left ovarian cyst. Central hypodensity in the uterus, likely secretory phase endometrium. Bones/joints: Sclerosis at the pubic symphysis and sacroiliac joints. Soft tissues: No pertinent acute abnormality seen. IMPRESSION: 1. No definite acute findings to explain reported symptoms. 2. Nonacute findings as outlined above. Lab Data Lab results reviewed: Yes I reviewed the patient's lab results. Labs: Laboratory Tests Range/Units 04/10/22 04/10/22 04/10/22 03:04 03:35 03:35 WBC (4.4-10.8) 10^3/uL 7.61 RBC (3.93-5.22) 10^6/uL 4.54 Hgb (11.2-15.7) g/dL 13.8 Hct (36.0-46.0) % 39.7 MCV (80-95) fL 87 MCH (27.0-33.0) pg 30.4 MCHC (32.0-36.0) % 34.8 RDW (11.7-14.6) % 12.4 Plt Count (130-400) 10^3/uL 171 MPV (8.0-11.0) fL 12.6 H Immature Gran % 0.1 Neutrophils % 65.2 Lymphocytes % 22.5 Monocytes % 9.3 Eosinophils % 2.5 Basophils % 0.4 Nucleated RBC % (0.0-0.3) % 0.0 Absolute Neutrophils (1.2-6.7) 10^3/uL 4.96 Absolute Lymphocytes (1.2-3.4) 10^3/uL 1.71 Absolute Monocytes (0.1-0.8) 10^3/uL 0.71 Absolute Eosinophils (0.0-0.7) 10^3/uL 0.19 Absolute Basophils (0.0-0.2) 10^3/uL 0.03 Sodium (136-145) mmol/L 141 Potassium (3.5-5.1) mmol/L 3.7 Chloride (98-107) mmol/L 105 Carbon Dioxide (21.0-32.0) mmol/L 26.6 Anion Gap (3-11) mmol/L 9.4 BUN (7-18) mg/dL 15 Creatinine (0.55-1.02) mg/dL 0.8 Est GFR (CKD-EPI 2020) (mL/min/1.73m2) 99.71 Glucose (74-106) mg/dL 102 Calcium (8.5-10.1) mg/dL 9.0 Total Bilirubin (0.2-1.0) mg/dL 0.3 AST (15-37) U/L 22 ALT (14-59) U/L 18 Alkaline Phosphatase (46-116) U/L 58 Total Protein (6.4-8.2) g/dL 7.4 Albumin (3.4-5.0) g/dL 3.8 Lipase (73-393) U/L 159 Urine Color (Yellow) Yellow Urine Clarity (Clear) Cloudy Urine pH (5-8) 6.5 Ur Specific [place] (1.005-1.025) >= 1.030 H Urine Protein (Negative) mg/dL Negative Urine Ketones (Negative) mg/dL Negative Urine Blood (Negative) Trace-intact H Urine Nitrite (Negative) Negative Urine Bilirubin (Negative) Negative Urine Urobilinogen (Up TO 0.2) EU/dL 1.0 H Ur Leukocyte Esterase (Negative) Negative Urine RBC (0-2) HPF 3-5 H Urine WBC (0-5) HPF 0-2 Ur Epithelial Cells (Negative) HPF Many Urine Crystals (Negative) HPF Few Amorphous Urine Bacteria (Negative) HPF Few Urine Mucus (Negative) Negative Ur Culture Indicated? No Urine Glucose (Negative) mg/dL Negative HPI General Mode of arrival: ambulatory . Date/Time Provider Initiated Documentation: 04/10/22 02:52 . Limitations to Documentation: no limitations . Information obtained by: patient . HPI Narrative: Patient is a 32-year-old female with history of asthma and tubal ligation who presents for abdominal pain, vomiting and diarrhea for the past week. Patient states she has had similar episodes occurring once monthly for the past 2 years but has not been given a diagnosis. Patient states she usually calls her doctor and she advised her to come here . Patient states she has a family history of Crohn's disease and colon cancer and would like to schedule an endoscopy and colonoscopy for her chronic symptoms. She states she took Pepto last night without relief. She states she has not taken Tylenol or ibuprofen since yesterday. She states she vomited 4 times today which is mainly food and bile with streaks of blood. She states she has had watery brown diarrhea several times today. She states her abdominal pain is constant and achy and feels more annoying than anything. She states her pain is currently 6/10. She denies any fever, chest pain, shortness of breath, urinary symptoms, recent travel, recent sick contacts or recent antibiotics. Related Data Home Medications Medication Instructions Recorded Confirmed albuterol sulfate 90 mcg/actuation 2 puff inhalation Q6H PRN 12/08/20 10/24/21 aerosol inhaler (Proventil HFA) shortness of breath or wheezing #8.5 grams sertraline 50 mg tablet 75 mg PO DAILY #135 tabs 04/12/21 10/24/21 hydroxyzine HCl 50 mg tablet 50 mg PO TID PRN anxiety #90 tabs 05/23/21 10/24/21 ondansetron 4 mg disintegrating 4 mg PO Q8H PRN nausea and 07/31/21 10/24/21 tablet vomiting #30 tabs ibuprofen 600 mg tablet 600 mg PO Q8H PRN pain #60 tabs 10/24/21 famotidine 20 mg tablet (Pepcid) 20 mg PO DAILY #14 tabs 04/10/22 ondansetron 4 mg disintegrating 4 mg PO TID PRN nausea and 04/10/22 tablet vomiting #6 tabs Previous Rx's Medication Instructions Recorded albuterol sulfate 90 mcg/actuation 2 puff inhalation Q6H PRN 12/08/20 aerosol inhaler (Proventil HFA) shortness of breath or wheezing #8.5 grams sertraline 50 mg tablet 75 mg PO DAILY #135 tabs 04/12/21 hydroxyzine HCl 50 mg tablet 50 mg PO TID PRN anxiety #90 tabs 05/23/21 ondansetron 4 mg disintegrating 4 mg PO Q8H PRN nausea and 07/31/21 tablet vomiting #30 tabs ibuprofen 600 mg tablet 600 mg PO Q8H PRN pain #60 tabs 10/24/21 famotidine 20 mg tablet (Pepcid) 20 mg PO DAILY #14 tabs 04/10/22 ondansetron 4 mg disintegrating 4 mg PO TID PRN nausea and 04/10/22 tablet vomiting #6 tabs Allergies Allergy/AdvReac Type Severity Reaction Status Date / Time grapefruit [Grapefruit] Allergy Severe HIVES Verified 10/24/21 18:53 Penicillins Allergy Severe AIRWAY Verified 10/24/21 18:53 CLOSES UP venom-honey bee Allergy Severe Swelling/Ed Verified 10/24/21 18:53 [bee venom (honey bee)] arabella latex Allergy RASH, Verified 10/24/21 18:53 BREAKS OUT General Stated Complaint: Abd Prob MATTIE: 4 Review of Systems All systems reviewed & are unremarkable except as noted in HPI and below Constitutional Constitutional: Reports as per HPI, Denies chills and Denies fever(s) Eyes Eyes: Denies blurry vision ENT Ears, Nose, Mouth, and Throat: Denies dizziness, Denies sore throat and Denies throat swelling Cardiovascular Cardiovascular: Denies chest pain and Denies dyspnea Respiratory Respiratory: Denies cough and Denies dyspnea Gastrointestinal Gastrointestinal: Reports abdominal pain, Reports diarrhea, Reports nausea and Reports vomiting Genitourinary Genitourinary: Denies hematuria and Denies dysuria Musculoskeletal Musculoskeletal: Denies back pain and Denies numbness Integumentary/Breasts Skin/Breast: Denies lesions and Denies rash Neurologic Neurologic: Denies dizziness, Denies localized weakness and Denies numbness Allergic/Immunologic Allergic/Immunologic: Denies throat swelling PFSH All Active Problems (Updated 04/10/22 @ 04:35 by Sierra Gipson DO) COVID-19 (Acute) Chronic abdominal pain (Acute) Chronic vomiting (Acute) Chronic diarrhea (Acute) Hyperlipidemia (Chronic) Cigarette smoker (Chronic) Generalized anxiety disorder (Chronic) Depressive disorder (Chronic) Medical History (Updated 04/10/22 @ 04:35 by Sierra Gipson DO) Asthma Surgical History History of bilateral ligation of fallopian tubes (~11/2012) S/P dilation and curettage For elective termination of S/P tonsillectomy (~2001) Family History Mother Cervical cancer Substance abuse Fibromyalgia Colon cancer Multiple sclerosis Father , at 46 of respiratory failure Multiple sclerosis Sister Substance abuse Multiple sclerosis Sister No problems noted. Sister Autism Brother Mentally challenged Multiple sclerosis Daughter IBS (irritable bowel syndrome) Daughter Autism Daughter Autism on the spectrum Daughter No problems noted. Maternal Grandfather Heart disease Maternal Grandmother Breast cancer Ovarian cancer Paternal Grandfather No problems noted. Paternal Grandmother , at 96 No problems noted. Social History Smoking/Tobacco Use Status: Current every day Tobacco Type: cigarettes Smoking risk assessment performed?: Yes Alcohol Intake: current Alcohol Intake frequency: holidays/special occasions only Drug use: Never Substance use type: does not use Pets and animals: Yes Pets and animals: cat(s) Sexually active: Yes Duration: decline to answer Frequency: decline to answer Lyric/Yarsanism: No preference Special lyric needs: No Do you feel safe at home: Yes Do you feel safe in your relationship?: Yes Female Reproductive History Menstrual Duration of menses: 3-5 days control method: permanent sterilization Exam Const General: cooperative, healthy appearing and no acute distress HENMT Head: normal to inspection Face and sinus: normal facial exam Eyes General: appearance normal, both eyes and all related structures Neck Neck: normal visual inspection and No submandibular swelling Lymphatic: no lymphadenopathy noted Chest Chest: normal inspection of the chest and no tenderness Resp Effort & Inspection: normal respiratory effort and able to speak in complete s entences Auscultation: clear to auscultation bilaterally Cardio Rate: regular rate Rhythm: regular rhythm GI Inspection: normal to inspection and obesity Palpation: soft, not firm, not rigid and tender in the LLQ, in the RLQ and s uprapubicly Auscultation: hypoactive bowel sounds Skin General skin exam: no rashes or lesions noted Neuro General: patient alert, patient awake and patient oriented x3 Cognition: normal cognition Speech: speech normal Motor: muscle tone normal throughout Sensory Exam: no sensory deficits noted Extrem General: normal to inspection, full ROM, capillary refill normal, no calf tenderness bilaterally and no edema Psych Appearance: grossly normal Mental Status: mental status grossly normal Speech and Movement: speech and movement normal Affect: normal affect
[2022-04-10 03:06] VITALS: BP 123/83; PULSE 80; RESP 18; TEMP 37.1; O2SAT 98
[2022-04-10 03:10] LABS: Bilirubin Negative (Negative); Blood Trace-intact (Negative); Clarity Cloudy (Clear); Glucose Negative (Negative); Ketones Negative (Negative); Leukocyte Esterase Negative (Negative); Nitrite Negative (Negative); Specific Gravity >= 1.030 (1.005-1.025); pH 6.5 (5-8)
--- NOTE | 2022-04-10 03:15 | DI.CT_ITS ---
Exam(s) CT ABDOMEN PELVIS W EXAM: CT ABDOMEN PELVIS W CLINICAL HISTORY: diffuse abd pain, vomiting, diarrhea TECHNIQUE: Imaging Protocol: Axial computed tomography images with coronal and sagittal reformatted images were created and reviewed CONTRAST MATERIAL: Intravenous: Omnipaque 350 Contrast volume:100 mL Oral: No COMPARISON: CT CT ABDOMEN PELVIS W from 07/31/2021 FINDINGS: ABDOMEN: Lung Bases: Normal where visualized. Liver: Normal density. No measurable mass. Portal, Superior Mesenteric, and Splenic Veins: Unremarkable. Gallbladder and Biliary Tract: Gallbladder is contracted. No gross abnormality. No biliary ductal d ilatation. Pancreas: Normal density, no abnormal calcifications or inflammatory process. Spleen: There are faint tiny hypodensities seen throughout the spleen. The spleen is mildly enlarged at 13 cm. Adrenals: No masses seen. Kidneys: Normal size, contour and axis. No radiodense stones or obstructive uropathy. No masses seen. Abdominal Aorta: Abdominal portion non-dilated. Bowel: No obstruction or bowel wall thickening. Appendix is unremarkable. Peritoneal Cavity: No ascites, collection or mesenteric inflammatory response. No free air. Lymph Nodes: Within normal limits. Bones: Within normal limits for the patient's age. Soft Tissues: Unremarkable. PELVIS: Bladder: Symmetric distention, no gross wall thickening. Reproductive Organs: Unremarkable as visualized. Lymph Nodes: Within normal limits. Bones: Within normal limits for the patient's age. IMPRESSION: 1. No definite acute abdominal or pelvic process. 2. Mild splenomegaly. Question of tiny hypodensities within the spleen. These are nonspecific. Thi s may be related to the enhancement pattern but the possibility of tiny cysts, hemangioma or abscesse s should be considered. A repeat CT scan of the abdomen or MRI of the spleen should be considered fo r further evaluation. RADIATION DOSE DELIVERED: 1,155.68mGy.cm Total DLP DATA REPOSITORY: All CT scans at this facility are submitted to the National Radiology Data Registry (NRDR) Dose Index Registry (DIR) with the [employer] ([employer]). RADIATION OPTIMIZATION: All CT scans at this facility use at least one of these dose optimization te chniques: automated exposure control; mA and/or kV adjustment per patient size (includes targeted exa ms where dose is matched to clinical indication); or iterative reconstruction.
[2022-04-10 03:16] LABS: Epithelial Cells Many HPF (Negative); WBC 0-2 HPF (0-5)
[2022-04-10 03:17] LABS: Bacteria Few HPF (Negative); C & S Indicated? No; Crystals Few Amorphous HPF (Negative); Mucus Negative (Negative)
[2022-04-10] MEDS: ACETAMINOPHEN 1,000 MG/100 ML BTL 400 MG IVPB (03:38)
[2022-04-10] MEDS: Ketorolac 30 MG/ML VIAL IVP (03:39)
[2022-04-10] MEDS: Ondansetron 4 MG/2 ML VIAL IVP (03:40)
[2022-04-10 03:48] LABS: Abs Immature Grans 0.01 10^3/uL (0.0-0.06); Absolute Basophil Count 0.03 10^3/uL (0.0-0.2); Absolute Eosinophil Count 0.19 10^3/uL (0.0-0.7); Absolute Lymphocyte Count 1.71 10^3/uL (1.2-3.4); Absolute Monocyte Count 0.71 10^3/uL (0.1-0.8); Absolute Neutrophil Count 4.96 10^3/uL (1.2-6.7); Basophils % 0.4; Eosinophils % 2.5; HCT 39.7 % (36.0-46.0); HGB 13.8 g/dL (11.2-15.7); Immature Grans % 0.1; Lymphocytes % 22.5; MCH 30.4 pg (27.0-33.0); MCHC 34.8 % (32.0-36.0); MCV 87 fL (80-95); MPV 12.6 fL (8.0-11.0); Monocytes % 9.3; Neutrophils % 65.2; Platelet Count 171 10^3/uL (130-400); RBC 4.54 10^6/uL (3.93-5.22); RDW 12.4 % (11.7-14.6); RDW-SD 40.2 fL; WBC 7.61 10^3/uL (4.4-10.8)
[2022-04-10] MEDS: Omnipaque 350 MG/ML 100 ML BTL IJ (03:50)
[2022-04-10] MEDS: Normal Saline Flush 10 ML SYR IVP (03:51)
[2022-04-10 04:04] LABS: ALT 18 U/L (14-59); AST 22 U/L (15-37); Albumin 3.8 g/dL (3.4-5.0); Alkaline Phosphatase 58 U/L (46-116); Anion Gap 9.4 mmol/L (3-11); BUN 15 mg/dL (7-18); Bilirubin, Total 0.3 mg/dL (0.2-1.0); CO2 26.6 mmol/L (21.0-32.0); CREATININE 0.8 mg/dL (0.55-1.02); Chloride 105 mmol/L (98-107); Estimated GFR 99.71 (mL/min/1.73m2); Glucose 102 mg/dL (74-106); Lipase 159 U/L (73-393); Potassium 3.7 mmol/L (3.5-5.1); Sodium 141 mmol/L (136-145); Total Protein 7.4 g/dL (6.4-8.2)
[2022-04-10] MEDS: Ondansetron O.D.T. 4 MG TABEF, 3 TABS/BTL PO (04:40)
[2022-04-10 04:57] LABS: COVID-19 PCR Negative (Negative); Influenza A PCR Negative (Negative); Influenza B PCR Negative (Negative); RSV PCR Negative (Negative)
[2022-04-10 04:58] LABS: Source Nasopharynx
--- NOTE | 2022-04-10 05:42 | DI.VRAD_ITS ---
PROCEDURE INFORMATION: Exam: CT Abdomen And Pelvis With Contrast Exam date and time: 04/10/2022 4:01 AM Age: 32 years old Clinical indication: Nausea and vomiting; Abdominal pain; Generalized; Prior surgery; Surgery date: 6+ months; Surgery type: Tubal ligation; Patient HX: Diffuse abd pain, vomiting, diarrhea of and on for months TECHNIQUE: Imaging protocol: Computed tomography of the abdomen and pelvis with contrast. Radiation optimization: All CT scans at this facility use at least one of these dose optimization techniques: automated exposure control; mA and/or kV adjustment per patient size (includes targeted exams where dose is matched to clinical indication); or iterative reconstruction. Contrast material: OMNIPAQUE 350; Contrast volume: 100 ml; Contrast route: INTRAVENOUS (IV); COMPARISON: CT ABDOMEN PELVIS W 07/31/2021 12:12 AM. Report not available. FINDINGS: Liver: No focal hepatic lesion identified. Gallbladder and bile ducts: Contracted gallbladder, likely accounting for mural thickening. Pancreas: No CT evidence for acute pancreatitis. Spleen: Splenomegaly. Adrenal glands: No mass. Kidneys and ureters: No hydronephrosis or evidence for pyelonephritis. Stomach and bowel: The ascending colon appears mildly thickened but is incompletely distended. Intramural fat deposition in the colon, nonspecific but can be seen in chronic inflammatory conditions. Please correlate clinically. Appendix: Normal appendix. Intraperitoneal space: No free air. Vasculature: No abdominal aortic aneurysm. Lymph nodes: Nonspecific mesenteric lymph nodes. Urinary bladder: No acute findings. Reproductive: 2 cm left ovarian cyst. Central hypodensity in the uterus, likely secretory phase endometrium. Bones/joints: Sclerosis at the pubic symphysis and sacroiliac joints. Soft tissues: No pertinent acute abnormality seen. IMPRESSION: 1. No definite acute findings to explain reported symptoms. 2. Nonacute findings as outlined above. Dictated and Authenticated by: Trinidad Rod MD. Ordering:KATELYNN Esquivel MD
== END 2022-04-10 05:36 | disposition left against medical advice (07) ==
PROVIDERS: Emergency Provider Physician Assistant; PCP Nurse Practitioner Family
DX: R10.31 Right lower quadrant pain (principal); R11.10 Vomiting, unspecified; R19.7 Diarrhea, unspecified; G89.29 Other chronic pain; Z53.20 Procedure and treatment not carried out because of patient's decision for unspecified reasons; R10.32 Left lower quadrant pain; Z20.822 Contact with and (suspected) exposure to COVID-19
CPT/HCPCS: 80053; 81025; 83690; 87637; 96374; 96375; 99285; 74177; 81003; 81015; 85025; 99284; J0131; J1885; J2405; J3490

== ENCOUNTER 2022-05-25 11:37 | Emergency (ER) | payer MEDICAID, SELFPAY ==
[2022-05-25 11:43] VITALS: BP 116/74; PULSE 99; RESP 16; TEMP 36.4; O2SAT 96
[2022-05-25 12:41] LABS: COVID-19 PCR Negative (Negative); Influenza A PCR Positive (Negative); Influenza B PCR Negative (Negative); RSV PCR Negative (Negative)
[2022-05-25 12:43] LABS: Source Nasopharynx
[2022-05-25] MEDS: oxyCODONE 5 mg/Acetaminophen 325 mg TAB 1 TAB PO (12:53)
[2022-05-25] MEDS: Ondansetron O.D.T. 4 MG TABEF PO (12:53)
[2022-05-25] MEDS: Acetaminophen 325 MG TAB 650 MG PO (12:53)
--- NOTE | 2022-05-25 13:39 | ED.GENADUL_ITS ---
Discharge Plan Disposition Patient Disposition: Home Condition: Stable Discharge Details Clinical Impression: Influenza A Primary Care Provider: Neema Salinas ED Provider: Rose Mary Avitia Home Meds and New Rx's Prescriptions: New ondansetron 4 mg tablet,disintegrating 4 mg PO DAILY 5 Days Qty: 5 0RF cyclobenzaprine 10 mg tablet 10 mg PO TID PRNQty: 10 0RF Continued sertraline 50 mg tablet 75 mg PO DAILY Qty: 135 3RF Rx Instructions: Take one and a half tablets daily buspirone 7.5 mg tablet 7.5 mg PO BID Qty: 90 0RF ondansetron 4 mg tablet,disintegrating 4 mg PO TID PRN (Reason: nausea and vomiting) Qty: 60 0RF hydroxyzine HCl 50 mg tablet 50 mg PO TID PRN (Reason: anxiety) Qty: 90 0RF albuterol sulfate [Proventil HFA] 90 mcg/actuation HFA aerosol inhaler 2 puff inhalation Q6H PRN (Reason: shortness of breath or wheezing) Qty: 8.5 4RF ibuprofen 600 mg tablet 600 mg PO Q8H PRN (Reason: pain) Qty: 60 0RF Discharge Instructions Instructions: H1N1 Influenza (ED) Additional Instructions: Take ibuprofen and Tylenol pain control Take Zofran as needed for nausea and vomiting Return with new or worsening complaints including chest pain or shortness of breath You may take muscle relaxant as needed for pain Referrals: Neema Salinas, SPORTS INTERN [Primary Care Provider] - Discharge Data Discharge Date/Time-TO BE ENTERED AT DEPARTURE: 05/25/22 14:05 Medical Decision Making This 32-year-old female presents with flulike symptoms Secondary to presenting symptoms we will order rapid flu and COVID She has influenza A positive Her vitals are stable She will need supportive care Patient secondary to myalgias is requesting medication to help with her muscle pain, given Flexeril Given Zofran for nausea and vomiting Able to tolerate p.o. at time of discharge Return precautions reviewed and patient expressed understanding Lungs clear to auscultation, no indication for chest x-ray at this time, no hypoxia HPI General Date/Time Provider Initiated Documentation: 05/25/22 11:37 . HPI Narrative: This is a 32-year-old female presents with upper respiratory symptoms, fever, chills, nausea, vomiting temp of 103 last evening. Denies any chest pain or shortness of breath. States numerous sick contacts. Related Data Home Medications Medication Instructions Recorded Confirmed hydroxyzine HCl 50 mg tablet 50 mg PO TID PRN anxiety #90 tabs 05/23/21 05/25/22 ibuprofen 600 mg tablet 600 mg PO Q8H PRN pain #60 tabs 10/24/21 05/25/22 albuterol sulfate 90 mcg/actuation 2 puff inhalation Q6H PRN 04/30/22 05/25/22 aerosol inhaler (Proventil HFA) shortness of breath or wheezing #8.5 grams buspirone 7.5 mg tablet 7.5 mg PO BID #90 tabs 05/04/22 05/25/22 ondansetron 4 mg disintegrating 4 mg PO TID PRN nausea and 05/04/22 05/25/22 tablet vomiting #60 tabs sertraline 50 mg tablet 75 mg PO DAILY #135 tabs 05/04/22 05/25/22 cyclobenzaprine 10 mg tablet 10 mg PO TID PRN #10 tabs 05/25/22 ondansetron 4 mg disintegrating 4 mg PO DAILY 5 days #5 tabs 05/25/22 tablet Previous Rx's Medication Instructions Recorded hydroxyzine HCl 50 mg tablet 50 mg PO TID PRN anxiety #90 tabs 05/23/21 ibuprofen 600 mg tablet 600 mg PO Q8H PRN pain #60 tabs 10/24/21 albuterol sulfate 90 mcg/actuation 2 puff inhalation Q6H PRN 04/30/22 aerosol inhaler (Proventil HFA) shortness of breath or wheezing #8.5 grams buspirone 7.5 mg tablet 7.5 mg PO BID #90 tabs 05/04/22 ondansetron 4 mg disintegrating 4 mg PO TID PRN nausea and 05/04/22 tablet vomiting #60 tabs sertraline 50 mg tablet 75 mg PO DAILY #135 tabs 05/04/22 cyclobenzaprine 10 mg tablet 10 mg PO TID PRN #10 tabs 05/25/22 ondansetron 4 mg disintegrating 4 mg PO DAILY 5 days #5 tabs 05/25/22 tablet Allergies Allergy/AdvReac Type Severity Reaction Status Date / Time grapefruit [Grapefruit] Allergy Severe HIVES Verified 05/25/22 11:46 Penicillins Allergy Severe AIRWAY Verified 05/25/22 11:46 CLOSES UP venom-honey bee Allergy Severe Swelling/Ed Verified 05/25/22 11:46 [bee venom (honey bee)] arabella latex Allergy RASH, Verified 05/25/22 11:46 BREAKS OUT General Stated Complaint: GenMedical MATTIE: 4 Review of Systems All systems reviewed & are unremarkable except as noted in HPI and below PFSH All Active Problems Influenza A (Acute) Major depressive disorder, recurrent (Chronic) Generalized anxiety disorder (Chronic) Hyperlipidemia (Chronic) Cigarette smoker (Chronic) Medical History (Updated 05/25/22 @ 13:48 by KAMERON Blum) Asthma COVID-19 (~07/2021) Surgical History History of bilateral ligation of fallopian tubes (~11/2012) S/P dilation and curettage For elective termination of S/P tonsillectomy (~2001) Family History Mother Cervical cancer Substance abuse Fibromyalgia Colon cancer Multiple sclerosis Father , at 46 of respiratory failure Multiple sclerosis Sister Substance abuse Multiple sclerosis Sister No problems noted. Sister Autism Brother Mentally challenged Multiple sclerosis Daughter IBS (irritable bowel syndrome) Daughter Autism Daughter Autism on the spectrum Daughter No problems noted. Maternal Grandfather Heart disease Maternal Grandmother Breast cancer Ovarian cancer Paternal Grandfather No problems noted. Paternal Grandmother , at 96 No problems noted. Social History Smoking/Tobacco Use Status: Current every day Tobacco Type: cigarettes Smoking risk assessment performed?: Yes Alcohol Intake: current Alcohol Intake frequency: holidays/special occasions only Drug use: Never Substance use type: does not use Pets and animals: Yes Pets and animals: cat(s) Sexually active: Yes Duration: decline to answer Frequency: decline to answer Lyric/Jainism: No preference Special lyric needs: No Do you feel safe at home: Yes Do you feel safe in your relationship?: Yes Female Reproductive History Menstrual Duration of menses: 3-5 days control method: permanent sterilization Exam Const General: cooperative, comfortable and no acute distress HENMT Head: normal to inspection Other: Uvula midline, oropharynx patent Eyes Sclera: sclerae normal Neck Other: No midline tenderness Resp Effort & Inspection: normal respiratory effort Auscultation: clear to auscultation bilaterally Cardio Rate: regular rate Rhythm: regular rhythm GI Inspection: normal to inspection Auscultation: normal bowel sounds Skin General skin exam: no rashes or lesions noted Neuro General: patient alert and patient oriented x3 Course Vital Signs Vital signs: Vital Signs Temperature 36.4 C 05/25/22 11:43 Pulse 99 H 05/25/22 11:43 Respiratory Rate 16 05/25/22 11:43 Blood Pressure 116/74 05/25/22 11:43 Pulse Oximetry 96 05/25/22 11:43 Temperature 36.4 C 05/25/22 11:43 Temperature Source Skin 05/25/22 11:43 Pulse 99 H 05/25/22 11:43 Respiratory Rate 16 05/25/22 11:43 Respiratory Effort 05/25/22 11:46 Blood Pressure 116/74 05/25/22 11:43 Blood Pressure Position Sitting 05/25/22 11:43 Pulse Oximetry 96 05/25/22 11:43 Oxygen Delivery Method Room Air 05/25/22 11:43 Oxygen Flow Rate 0 05/25/22 11:43 Pain Level 7 05/25/22 11:43 Lab/Test Results Lab/Test Results: Laboratory Tests Range/Units 05/25/22 11:52 COVID-19 Source Nasopharynx SARS-CoV-2 (PCR) (Negative) Negative Influenza Type A (PCR) (Negative) Positive A Influenza Type B (PCR) (Negative) Negative RSV (PCR) (Negative) Negative
[2022-05-25 14:04] VITALS: RESP 20
== END 2022-05-25 14:05 | disposition home or self-care (01) ==
PROVIDERS: Physician Assistant; Emergency Provider Physician Assistant; PCP Nurse Practitioner Family
DX: J10.2 Influenza due to other identified influenza virus with gastrointestinal manifestations (principal)
CPT/HCPCS: 87637; 99283

== ENCOUNTER 2022-05-30 00:48 | Emergency (ER) | payer MEDICAID, SELFPAY ==
[2022-05-30 00:54] VITALS: BP 132/74; PULSE 75; RESP 16; TEMP 36.3; O2SAT 96
--- NOTE | 2022-05-30 01:19 | ED.GENADUL_ITS ---
Discharge Plan Disposition Patient Disposition: Home Condition: Improving Discharge Details Chief Complaint: RespSymp Clinical Impression: Influenza Primary Care Provider: Neema Salinas ED Provider: Christian Weiss Home Meds and New Rx's Prescriptions: No Action sertraline 50 mg tablet 75 mg PO DAILY Qty: 135 3RF Rx Instructions: Take one and a half tablets daily buspirone 7.5 mg tablet 7.5 mg PO BID Qty: 90 0RF ondansetron 4 mg tablet,disintegrating 4 mg PO TID PRN (Reason: nausea and vomiting) Qty: 60 0RF hydroxyzine HCl 50 mg tablet 50 mg PO TID PRN (Reason: anxiety) Qty: 90 0RF albuterol sulfate [Proventil HFA] 90 mcg/actuation HFA aerosol inhaler 2 puff inhalation Q6H PRN (Reason: shortness of breath or wheezing) Qty: 8.5 4RF ibuprofen 600 mg tablet 600 mg PO Q8H PRN (Reason: pain) Qty: 60 0RF cyclobenzaprine 10 mg tablet 10 mg PO TID PRNQty: 10 0RF Discharge Instructions Instructions: Influenza (ED) Medical Decision Making 32-year-old female recent diagnosed with influenza presents with fatigue nausea and cough. Normoxic normotensive nontachycardic. Nontoxic clear lungs bilaterally. Will treat symptomatically with dexamethasone and Zofran. P.o. challenge at home. Lower suspicion for pneumonia or serious bacterial infection. 2: 09 feeling better after medications. HPI General Date/Time Provider Initiated Documentation: 05/30/22 00:48 . HPI Narrative: 32-year-old female recently diagnosed with influenza presents with nausea cough and fatigue. Related Data Home Medications Medication Instructions Recorded Confirmed hydroxyzine HCl 50 mg tablet 50 mg PO TID PRN anxiety #90 tabs 05/23/21 05/30/22 ibuprofen 600 mg tablet 600 mg PO Q8H PRN pain #60 tabs 10/24/21 05/30/22 albuterol sulfate 90 mcg/actuation 2 puff inhalation Q6H PRN 04/30/22 05/30/22 aerosol inhaler (Proventil HFA) shortness of breath or wheezing #8.5 grams buspirone 7.5 mg tablet 7.5 mg PO BID #90 tabs 05/04/22 05/30/22 ondansetron 4 mg disintegrating 4 mg PO TID PRN nausea and 05/04/22 05/30/22 tablet vomiting #60 tabs sertraline 50 mg tablet 75 mg PO DAILY #135 tabs 05/04/22 05/30/22 cyclobenzaprine 10 mg tablet 10 mg PO TID PRN #10 tabs 05/25/22 05/30/22 Previous Rx's Medication Instructions Recorded hydroxyzine HCl 50 mg tablet 50 mg PO TID PRN anxiety #90 tabs 05/23/21 ibuprofen 600 mg tablet 600 mg PO Q8H PRN pain #60 tabs 10/24/21 albuterol sulfate 90 mcg/actuation 2 puff inhalation Q6H PRN 04/30/22 aerosol inhaler (Proventil HFA) shortness of breath or wheezing #8.5 grams buspirone 7.5 mg tablet 7.5 mg PO BID #90 tabs 05/04/22 ondansetron 4 mg disintegrating 4 mg PO TID PRN nausea and 05/04/22 tablet vomiting #60 tabs sertraline 50 mg tablet 75 mg PO DAILY #135 tabs 05/04/22 cyclobenzaprine 10 mg tablet 10 mg PO TID PRN #10 tabs 05/25/22 Allergies Allergy/AdvReac Type Severity Reaction Status Date / Time grapefruit [Grapefruit] Allergy Severe HIVES Verified 05/30/22 00:58 Penicillins Allergy Severe AIRWAY Verified 05/30/22 00:58 CLOSES UP venom-honey bee Allergy Severe Swelling/Ed Verified 05/30/22 00:58 [bee venom (honey bee)] arabella latex Allergy RASH, Verified 05/30/22 00:58 BREAKS OUT General Stated Complaint: RespSymp MATTIE: 4 Review of Systems Narrative: Review of Systems Constitutional: negative Eyes: negative ENT: negative Cardiovascular: negative Respiratory: Cough Gastrointestinal: Nausea : negative Musculoskeletal: negative Skin: negative Neurologic: negative Psych: negative PFSH All Active Problems Influenza A (Acute) Influenza (Acute) Major depressive disorder, recurrent (Chronic) Generalized anxiety disorder (Chronic) Hyperlipidemia (Chronic) Cigarette smoker (Chronic) Medical History (Updated 05/30/22 @ 02:10 by Christian Weiss MD) Asthma COVID-19 (~07/2021) Surgical History History of bilateral ligation of fallopian tubes (~11/2012) S/P dilation and curettage For elective termination of S/P tonsillectomy (~2001) Family History Mother Cervical cancer Substance abuse Fibromyalgia Colon cancer Multiple sclerosis Father , at 46 of respiratory failure Multiple sclerosis Sister Substance abuse Multiple sclerosis Sister No problems noted. Sister Autism Brother Mentally challenged Multiple sclerosis Daughter IBS (irritable bowel syndrome) Daughter Autism Daughter Autism on the spectrum Daughter No problems noted. Maternal Grandfather Heart disease Maternal Grandmother Breast cancer Ovarian cancer Paternal Grandfather No problems noted. Paternal Grandmother , at 96 No problems noted. Social History Smoking/Tobacco Use Status: Current every day Tobacco Type: cigarettes Smoking risk assessment performed?: Yes Alcohol Intake: current Alcohol Intake frequency: holidays/special occasions only Drug use: Never Substance use type: does not use Pets and animals: Yes Pets and animals: cat(s) Sexually active: Yes Duration: decline to answer Frequency: decline to answer Lyric/Jainism: No preference Special lyric needs: No Do you feel safe at home: Yes Do you feel safe in your relationship?: Yes Female Reproductive History Menstrual Duration of menses: 3-5 days control method: permanent sterilization Exam Narrative Exam Narrative: Physical Examination General: alert, awake, cooperative, resting comfortably, no acute distress HEENT: normocephalic, atraumatic; PERRL, EOM intact, conjunctiva normal; no nasal discharge; moist mucous membranes, oral and pharyngeal mucosa normal, tolerating secretions Neck: supple, trachea midline; full ROM Chest: normal to inspection Respiratory: normal respiratory effort, speaking in full sentences, clear to auscultation, no wheezing, rales or rhonchi Cardiac: regular rate, regular rhythm, S1S2 intact, no murmurs rubs or gallops GI: abdomen soft, non-tender, non-distended; no palpable mass or hepatosple nomegaly Skin: no lesions, rashes or trauma appreciated Neuro: AAOx3, normal speech, moving all extremities Psych: Appropriate mood and affect Course Vital Signs Vital signs: Vital Signs Temperature 36.3 C L 05/30/22 00:54 Pulse 75 05/30/22 00:54 Respiratory Rate 16 05/30/22 00:54 Blood Pressure 132/74 05/30/22 00:54 Pulse Oximetry 96 05/30/22 00:54 Temperature 36.3 C L 05/30/22 00:54 Temperature Source Temporal Artery Scan 05/30/22 00:54 Pulse 75 05/30/22 00:54 Respiratory Rate 16 05/30/22 00:54 Respiratory Effort 05/30/22 01:00 Respiratory Depth Normal 05/30/22 01:00 Blood Pressure 132/74 05/30/22 00:54 Blood Pressure Position Sitting 05/30/22 00:54 Pulse Oximetry 96 05/30/22 00:54 Oxygen Delivery Method Room Air 05/30/22 00:54 Oxygen Flow Rate 0 05/30/22 00:54 Pain Level 5 05/30/22 00:54
[2022-05-30] MEDS: Ondansetron O.D.T. 4 MG TABEF SL (01:25)
[2022-05-30] MEDS: Dexamethasone 10 MG/ML VIAL IVP (01:25)
[2022-05-30 02:16] VITALS: BP 116/68; PULSE 68; RESP 16; O2SAT 98
== END 2022-05-30 02:15 | disposition home or self-care (01) ==
PROVIDERS: Emergency Provider Emergency Medicine; PCP Nurse Practitioner Family
DX: J10.1 Influenza due to other identified influenza virus with other respiratory manifestations (principal)
CPT/HCPCS: 99283; J1100

== ENCOUNTER 2022-08-09 18:42 | Emergency (ER) | payer MEDICAID, SELFPAY ==
[2022-08-09 19:03] VITALS: BP 132/81; PULSE 85; RESP 16; TEMP 36.8; O2SAT 95
--- NOTE | 2022-08-09 20:13 | ED.GENADUL_ITS ---
Discharge Plan Disposition Patient Disposition: Home Discharge Details Clinical Impression: Systemic viral illness Primary Care Provider: Neema Salinas ED Provider: Damián Sarah Home Meds and New Rx's Prescriptions: Continued sertraline 50 mg tablet 75 mg PO DAILY Qty: 135 3RF Rx Instructions: Take one and a half tablets daily ondansetron 4 mg tablet,disintegrating 4 mg PO TID PRN (Reason: nausea and vomiting) Qty: 60 0RF buspirone 7.5 mg tablet 7.5 mg PO BID Qty: 180 3RF cyclobenzaprine 10 mg tablet 10 mg PO TID PRN (Reason: back pain) Qty: 60 0RF hydroxyzine HCl 50 mg tablet 50 mg PO TID PRN (Reason: anxiety) Qty: 90 0RF albuterol sulfate [Proventil HFA] 90 mcg/actuation HFA aerosol inhaler 2 puff inhalation Q6H PRN (Reason: shortness of breath or wheezing) Qty: 8.5 4RF ibuprofen 600 mg tablet 600 mg PO Q8H PRN (Reason: pain) Qty: 60 0RF Discharge Instructions Instructions: Viral Syndrome (ED) Additional Instructions: Please get plenty of rest and stay well-hydrated during viral illness. If you have any new or significant worsening of symptoms feel free to return the e mergency department for reassessment. We will contact you with any positive results from your viral nasal swab. Stand Alone Forms: Work Release Referrals: Neema Salinas, RETAIL [employer] PREVENTION OFFICER [Primary Care Provider] - 1 week (As needed for reassessment or if not improving) Medical Decision Making Viral symptoms x4 days, does state exposure at work to COVID, states cough, nausea, intermittent vomiting, nasal congestion. Exam is unremarkable. Suspect viral illness. We will perform COVID flu and RSV testing. Due to high volume in emergency department will discharge patient and will call her with results but at this time I do not feel that any interventions are needed. After discussion of diagnosis and plan of care patient has no further needs, questions, or concerns and states clear understanding to return to the emergency department for any worsening symptoms. Reviewed Fluvid swab which was resulted as negative. This documentation was generated using [employer] system, please disregard any oddities of phrase or misspellings. Lab Data Lab results reviewed: Yes I reviewed the patient's lab results. HPI General Mode of arrival: ambulatory . Date/Time Provider Initiated Documentation: 08/09/22 19:06 . Limitations to Documentation: no limitations . Information obtained by: patient and RN notes reviewed . History of Present Illness 32 year old F presents to the emergency department with the chief complaint of Cough, nasal congestion nausea vomiting, described as moderate, with intensity rated at 6. Quality is described as aching, Patient started experiencing this day(s) (4) and it has been constant. No relieving factors improve symptom(s), No exacerbating factors reported . Patient did receive the following treatments prior to arrival, NSAID Related Data Home Medications Medication Instructions Recorded Confirmed hydroxyzine HCl 50 mg tablet 50 mg PO TID PRN anxiety #90 tabs 05/23/21 08/09/22 ibuprofen 600 mg tablet 600 mg PO Q8H PRN pain #60 tabs 10/24/21 08/09/22 albuterol sulfate 90 mcg/actuation 2 puff inhalation Q6H PRN 04/30/22 08/09/22 aerosol inhaler (Proventil HFA) shortness of breath or wheezing #8.5 grams ondansetron 4 mg disintegrating 4 mg PO TID PRN nausea and 05/04/22 08/09/22 tablet vomiting #60 tabs sertraline 50 mg tablet 75 mg PO DAILY #135 tabs 05/04/22 08/09/22 buspirone 7.5 mg tablet 7.5 mg PO BID #180 tabs 07/02/22 08/09/22 cyclobenzaprine 10 mg tablet 10 mg PO TID PRN back pain #60 tabs 07/02/22 08/09/22 Previous Rx's Medication Instructions Recorded hydroxyzine HCl 50 mg tablet 50 mg PO TID PRN anxiety #90 tabs 05/23/21 ibuprofen 600 mg tablet 600 mg PO Q8H PRN pain #60 tabs 10/24/21 albuterol sulfate 90 mcg/actuation 2 puff inhalation Q6H PRN 04/30/22 aerosol inhaler (Proventil HFA) shortness of breath or wheezing #8.5 grams ondansetron 4 mg disintegrating 4 mg PO TID PRN nausea and 05/04/22 tablet vomiting #60 tabs sertraline 50 mg tablet 75 mg PO DAILY #135 tabs 05/04/22 buspirone 7.5 mg tablet 7.5 mg PO BID #180 tabs 07/02/22 cyclobenzaprine 10 mg tablet 10 mg PO TID PRN back pain #60 tabs 07/02/22 Allergies Allergy/AdvReac Type Severity Reaction Status Date / Time grapefruit [Grapefruit] Allergy Severe HIVES Verified 08/09/22 19:07 Penicillins Allergy Severe AIRWAY Verified 08/09/22 19:07 CLOSES UP venom-honey bee Allergy Severe Swelling/Ed Verified 08/09/22 19:07 [bee venom (honey bee)] arabella latex Allergy RASH, Verified 08/09/22 19:07 BREAKS OUT General Stated Complaint: RespSymp MATTIE: 4 Review of Systems Constitutional Constitutional: Reports body ache(s), Reports chills, Reports fever(s), Reports headache(s) and Reports malaise Eyes Eyes: Denies eye discharge ENT Ears, Nose, Mouth, and Throat: Reports as per HPI, Denies ear discharge, Denies otalgia, Reports headache(s), Reports nasal congestion, Reports nasal discharge, Denies neck pain, Denies sore throat and Denies throat swelling Cardiovascular Cardiovascular: Denies chest pain and Denies dyspnea Respiratory Respiratory: Reports cough and Denies dyspnea Musculoskeletal Musculoskeletal: Denies joint swelling and Denies neck pain Integumentary/Breasts Skin/Breast: Denies rash Neurologic Neurologic: Reports headache(s) Allergic/Immunologic Allergic/Immunologic: Denies throat swelling PFSH All Active Problems Systemic viral illness (Acute) Major depressive disorder, recurrent (Chronic) Generalized anxiety disorder (Chronic) Hyperlipidemia (Chronic) Cigarette smoker (Chronic) Medical History Asthma COVID-19 (~07/2021) Surgical History History of bilateral ligation of fallopian tubes (~11/2012) S/P dilation and curettage For elective termination of S/P tonsillectomy (~2001) Family History Mother Cervical cancer Substance abuse Fibromyalgia Colon cancer Multiple sclerosis Father , at 46 of respiratory failure Multiple sclerosis Sister Substance abuse Multiple sclerosis Sister No problems noted. Sister Autism Brother Mentally challenged Multiple sclerosis Daughter IBS (irritable bowel syndrome) Daughter Autism Daughter Autism on the spectrum Daughter No problems noted. Maternal Grandfather Heart disease Maternal Grandmother Breast cancer Ovarian cancer Paternal Grandfather No problems noted. Paternal Grandmother , at 96 No problems noted. Social History Smoking/Tobacco Use Status: Current every day Tobacco Type: cigarettes Smoking risk assessment performed?: Yes Alcohol Intake: current Alcohol Intake frequency: holidays/special occasions only Drug use: Never Substance use type: does not use Pets and animals: Yes Pets and animals: cat(s) Sexually active: Yes Duration: decline to answer Frequency: decline to answer Lyric/Confucianist: No preference Special lyric needs: No Do you feel safe at home: Yes Do you feel safe in your relationship?: Yes Female Reproductive History Menstrual Duration of menses: 3-5 days control method: permanent sterilization Exam Const General: cooperative, comfortable and no acute distress Orientation: alert and awake HENNV Head: normal to inspection, normocephalic and atraumatic Ears: hearing grossly normal bilaterally and TM's normal bilaterally General nose exam: external nose normal Face and sinus: no erythema Mouth: oral mucosae normal, no drooling, no muffled voice and no trismus Throat: posterior oropharynx normal Neck Neck: normal visual inspection, full ROM, no lymphadenopathy, no meningeal signs, trachea midline and supple Resp Effort & Inspection: normal respiratory effort, able to speak in complete sentences and no cough Auscultation: clear to auscultation bilaterally Cardio Rate: regular rate Rhythm: regular rhythm Heart Sounds: S1 normal, S2 normal, normal S1 and S2, no click, no gallops, no murmurs and no rubs Skin General skin exam: no rashes or lesions noted and dry skin (warm) Neuro General: patient alert, patient awake, patient oriented x3, gait normal and moves all extremities Cognition: normal cognition Speech: speech normal Course Vital Signs Vital signs: Vital Signs Temperature 36.8 C 08/09/22 19:03 Pulse 85 08/09/22 19:03 Respiratory Rate 16 08/09/22 19:03 Blood Pressure 132/81 08/09/22 19:03 Pulse Oximetry 95 08/09/22 19:03 Temperature 36.8 C 08/09/22 19:03 Temperature Source Temporal Artery Scan 08/09/22 19:03 Pulse 85 08/09/22 19:03 Respiratory Rate 16 08/09/22 19:03 Respiratory Effort Normal 08/09/22 19:03 Blood Pressure 132/81 08/09/22 19:03 Blood Pressure Position Sitting 08/09/22 19:03 Pulse Oximetry 95 08/09/22 19:03 Oxygen Delivery Method Room Air 08/09/22 19:03 Oxygen Flow Rate 0 08/09/22 19:03 Pain Level 4 08/09/22 19:03
[2022-08-09 20:46] LABS: COVID-19 PCR Negative (Negative); Influenza A PCR Negative (Negative); Influenza B PCR Negative (Negative); RSV PCR Negative (Negative)
[2022-08-09 20:56] LABS: Source Nasopharynx
== END 2022-08-09 20:22 | disposition home or self-care (01) ==
PROVIDERS: Emergency Provider Nurse Practitioner Family; PCP Nurse Practitioner Family
DX: B34.9 Viral infection, unspecified (principal); R05.9 Cough, unspecified; R11.2 Nausea with vomiting, unspecified; Z20.822 Contact with and (suspected) exposure to COVID-19
CPT/HCPCS: 87637; 99282; 99283

== ENCOUNTER 2023-01-27 01:20 | Emergency (ER) | payer MEDICAID, SELFPAY ==
[2023-01-27 01:25] VITALS: BP 147/96; PULSE 72; RESP 15; O2SAT 95
--- NOTE | 2023-01-27 01:40 | W.ED.GENAD ---
Discharge Plan Disposition Patient Disposition: Home Discharge Details Chief Complaint: Burn Clinical Impression: Second degree burn of hand and fingers Primary Care Provider: Neema Salinas ED Provider: Anuj Cruz Home Meds and New Rx's Prescriptions: No Action sertraline 50 mg tablet 75 mg PO DAILY Qty: 135 3RF Rx Instructions: Take one and a half tablets daily ondansetron 4 mg tablet,disintegrating 4 mg PO TID PRN (Reason: nausea and vomiting) Qty: 60 0RF benzonatate 100 mg capsule 100 mg PO TID PRN (Reason: cough) Qty: 14 0RF buspirone 7.5 mg tablet 7.5 mg PO BID Qty: 180 3RF cyclobenzaprine 10 mg tablet 10 mg PO TID PRN (Reason: back pain) Qty: 60 0RF hydroxyzine HCl 50 mg tablet 50 mg PO TID PRN (Reason: anxiety) Qty: 90 0RF albuterol sulfate [Proventil HFA] 90 mcg/actuation HFA aerosol inhaler 2 puff inhalation Q6H PRN (Reason: shortness of breath or wheezing) Qty: 8.5 0RF ibuprofen 600 mg tablet 600 mg PO Q8H PRN (Reason: pain) Qty: 60 0RF Discharge Instructions Instructions: Second-Degree Burn (ED) Additional Instructions: Please continue to apply ice and take Tylenol and Motrin as needed for pain. Be cautious with ice as to not cause frostbite from the ice. Once the blisters do pop please keep the area covered with triple antibiotic ointment and neomycin to prevent infection. If you notice redness swelling or fever please return immediately for reassessment. If you notice any worsening of your symptoms, or any new symptoms such as vomiting, diarrhea, fever, chills, shortness of breath, chest pain, numbness, weakness, or fainting , please return immediately to the emergency department for reevaluation. Please follow up with your primary care provider as soon as possible for reassessment and reevaluation. As always, it was a pleasure participating in your medical care today. Referrals: Neema Salinas, SUN [Primary Care Provider] - Medical Decision Making 32-year-old female who is ambidextrous presents today after burning her left hand. She grabbed a hot frying glover with her fingers, and caused a burn on her first second third fourth and slightly the fifth digit. Notes about 35 minutes prior to arrival. She admits to pain in those areas, but denies any numbness or tingling. Tetanus was last updated 10 years ago. Pain is relieved with ice and pressure. No other complaints at this time. Patient's left hand demonstrates a second-degree partial-thickness blister on the pad of the thumb, a thin strip of a second-degree partial-thickness blister on the index middle ring and pinky finger. All of this is located near the pads, and was the area of the glover that was touched. Diameter is roughly 5 mm for the second third fourth and fifth digit, length is roughly 1 cm on each finger. The blister on the thumb is about 1 cm x 0.75 cm. No evidence of circumferential burn. No burn on the palm of the hand. No other signs of trauma. Sensation intact. Brisk capillary refill is noted. No indication for transfer to burn center. No evidence of vascular compromise whatsoever. Burn is otherwise relatively mild. Will recommend bandaging, triple antibiotic ointment application once the blisters pop. I discussed with the patient the new changes in the current literature recommendations for burn management away from Silvadene. Tetanus will be updated here. Recommend continued NSAIDs and ice. Discussed red flags for which to return. I have extensively reviewed the treatment plan and discharge instructions with the patient. I have addressed all patient concerns at this time. The patient was made aware of what symptoms to monitor for that would warrant a return to the emergency department. Discussed the plan with the patient, they demonstrate verbal understanding and agreement with our assessment and plan at this time. The documentation in this chart was dictated using Mingle[employer] dictation software. Please excuse any dictation errors. HPI General Date/Time Provider Initiated Documentation: 01/27/23 01:22. HPI Narrative: 32-year-old female who is ambidextrous presents today after burning her left hand. She grabbed a hot frying glover with her fingers, and caused a burn on her first second third fourth and slightly the fifth digit. Notes about 35 minutes prior to arrival. She admits to pain in those areas, but denies any numbness or tingling. Tetanus was last updated 10 years ago. Pain is relieved with ice and pressure. No other complaints at this time. Related Data Home Medications Medication Instructions Recorded Confirmed hydroxyzine HCl 50 mg tablet 50 mg PO TID PRN anxiety #90 tabs 05/23/21 01/27/23 ibuprofen 600 mg tablet 600 mg PO Q8H PRN pain #60 tabs 10/24/21 01/27/23 ondansetron 4 mg disintegrating 4 mg PO TID PRN nausea and 05/04/22 01/27/23 tablet vomiting #60 tabs sertraline 50 mg tablet 75 mg PO DAILY #135 tabs 05/04/22 01/27/23 buspirone 7.5 mg tablet 7.5 mg PO BID #180 tabs 07/02/22 01/27/23 cyclobenzaprine 10 mg tablet 10 mg PO TID PRN back pain #60 tabs 07/02/22 01/27/23 benzonatate 100 mg capsule 100 mg PO TID PRN cough #14 caps 08/13/22 08/13/22 albuterol sulfate 90 mcg/actuation 2 puff inhalation Q6H PRN 12/24/22 01/27/23 aerosol inhaler (Proventil HFA) shortness of breath or wheezing #8.5 grams Previous Rx's Medication Instructions Recorded hydroxyzine HCl 50 mg tablet 50 mg PO TID PRN anxiety #90 tabs 05/23/21 ibuprofen 600 mg tablet 600 mg PO Q8H PRN pain #60 tabs 10/24/21 ondansetron 4 mg disintegrating 4 mg PO TID PRN nausea and 05/04/22 tablet vomiting #60 tabs sertraline 50 mg tablet 75 mg PO DAILY #135 tabs 05/04/22 buspirone 7.5 mg tablet 7.5 mg PO BID #180 tabs 07/02/22 cyclobenzaprine 10 mg tablet 10 mg PO TID PRN back pain #60 tabs 07/02/22 benzonatate 100 mg capsule 100 mg PO TID PRN cough #14 caps 08/13/22 albuterol sulfate 90 mcg/actuation 2 puff inhalation Q6H PRN 12/24/22 aerosol inhaler (Proventil HFA) shortness of breath or wheezing #8.5 grams Allergies Allergy/AdvReac Type Severity Reaction Status Date / Time grapefruit [Grapefruit] Allergy Severe HIVES Verified 01/27/23 01:30 Penicillins Allergy Severe AIRWAY Verified 01/27/23 01:30 CLOSES UP venom-honey bee Allergy Severe Swelling/Ed Verified 01/27/23 01:30 [bee venom (honey bee)] arabella egg Allergy Unverified 01/27/23 01:30 latex Allergy RASH, Verified 01/27/23 01:30 BREAKS OUT General Stated Complaint: Burn MATTIE: 3 Review of Systems All systems reviewed & are unremarkable except as noted in HPI and below PFSH All Active Problems Second degree burn of hand and fingers (Acute) Major depressive disorder, recurrent (Chronic) Generalized anxiety disorder (Chronic) Hyperlipidemia (Chronic) Cigarette smoker (Chronic) Medical History Asthma COVID-19 (~07/2021) Surgical History History of bilateral ligation of fallopian tubes (~11/2012) S/P dilation and curettage For elective termination of S/P tonsillectomy (~2001) Family History Mother Cervical cancer Substance abuse Fibromyalgia Colon cancer Multiple sclerosis Father , at 46 of respiratory failure Multiple sclerosis Sister Substance abuse Multiple sclerosis Sister No problems noted. Sister Autism Brother Mentally challenged Multiple sclerosis Daughter IBS (irritable bowel syndrome) Daughter Autism Daughter Autism on the spectrum Daughter No problems noted. Maternal Grandfather Heart disease Maternal Grandmother Breast cancer Ovarian cancer Paternal Grandfather No problems noted. Paternal Grandmother , at 96 No problems noted. Social History Smoking/Tobacco Use Status: Current every day Tobacco Type: cigarettes Smoking risk assessment performed?: Yes Alcohol Intake: current Alcohol Intake frequency: holidays/special occasions only Drug use: Never Substance use type: does not use Housing: house Pets and animals: Yes Pets and animals: cat(s) Sexually active: Yes Duration: decline to answer Frequency: decline to answer Lyric/Episcopal: No preference Special lyric needs: No Do you feel safe at home: Yes Do you feel safe in your relationship?: Yes Female Reproductive History Menstrual Duration of menses: 3-5 days control method: permanent sterilization Exam Narrative Exam Narrative: 1.Const: Well-nourished, Well-developed, appearing stated age 2.Eyes: PERRL, no conjunctival injection, and symmetrical lids. 3.ENT: Atraumatic external nose and ears. Moist MM. Neck: Symmetric, trachea midline, No thyromegaly. 4.CVS: +S1/S2, No murmurs or gallops. Peripheral pulses 2+ and equal in all extremities. Brisk capillary refill in all extremities. 5.RESP: Unlabored respiratory effort. Clear to auscultation bilaterally. No wheezes rales or rhonchi 6.GI: Soft, Nontender/Nondistended, No hepatosplenomegaly. No guarding or rebound. 7.MSK: Normocephalic/Atraumatic, Extremities w/o deformity or ttp No cyanosis or clubbing, Normal movement of all extremities 8.Skin: Patient's left hand demonstrates a second-degree partial-thickness blister on the pad of the thumb, a thin strip of a second-degree partial-thickness blister on the index middle ring and pinky finger. All of this is located near the pads, and was the area of the gloevr that was touched. Diameter is roughly 5 mm for the second third fourth and fifth digit, length is roughly 1 cm on each finger. The blister on the thumb is about 1 cm x 0.75 cm. No evidence of circumferential burn. No burn on the palm of the hand. No other signs of trauma. Sensation intact. Brisk capillary refill is noted. 9.Neuro: scrum product owner II-XII grossly intact. Sensation grossly intact, no focal neurologic deficits. 10.Psych: (AAO) x3. Appropriate mood and affect Course Vital Signs Vital signs: Vital Signs Pulse 72 01/27/23 01:25 Respiratory Rate 15 01/27/23 01:25 Blood Pressure 147/96 H 01/27/23 01:25 Pulse Oximetry 95 01/27/23 01:25 Pulse 72 01/27/23 01:25 Respiratory Rate 15 01/27/23 01:25 Respiratory Effort Normal 01/27/23 01:27 Blood Pressure 147/96 H 01/27/23 01:25 Blood Pressure Position Sitting 01/27/23 01:25 Pulse Oximetry 95 01/27/23 01:25 Oxygen Delivery Method Room Air 01/27/23 01:25 Oxygen Flow Rate 0 01/27/23 01:25 Pain Level 5 01/27/23 01:27
[2023-01-27] MEDS: Acetaminophen 500 MG TAB 1000 MG PO (01:55)
[2023-01-27] MEDS: Ibuprofen 800 MG TAB PO (01:55)
== END 2023-01-27 02:04 | disposition home or self-care (01) ==
PROVIDERS: Emergency Provider Student in an Organized Health Care Education/Training Program; PCP Nurse Practitioner Family
DX: T23.242A Burn of second degree of multiple left fingers (nail), including thumb, initial encounter
CPT/HCPCS: 90471; 99283

== ENCOUNTER 2023-07-03 15:44 | Outpatient (REF) | payer MEDICAID, SELFPAY ==
--- NOTE | 2023-07-03 14:45 | PAPFT_PTH ---
PATIENT: Gricel Cheatham LOC: [facility]#:[id number] AGE/SX: 33/F ROOM: RE07/03/[address]: MAHESH Leyva : 1990 BED: DIS: 07/03/2023 SPEC #: [id number] RECD: 07/04/23 12:53 STATUS: MICHAEL REQ #: [id number] MARIANNE: 07/03/23 14:[address]: Neema Salinas DEPT: [facility] Cytology RECD BY: Rose Mary Winter Tissues: 1 - CX/ENDOCX FOR PAP SMEARS Procedures: PAP THIN PREP/UVM Screening HPV DNA PROBE Comments: [id number]
== END 2023-07-03 15:45 | disposition home or self-care (01) ==
LOC: NCHCN 15:44
PROVIDERS: PCP Nurse Practitioner Family; Visit Provider Nurse Practitioner Family
DX: Z01.419 Encounter for gynecological examination (general) (routine) without abnormal findings (principal)
CPT/HCPCS: 88142; 87624

== ENCOUNTER 2023-07-05 01:10 | Emergency (ER) | payer MEDICAID, SELFPAY ==
--- NOTE | 2023-07-05 01:19 | ED.GENADUL_ITS ---
HPI General Mode of arrival: ambulatory . Date/Time Provider Initiated Documentation: 07/05/23 01:17 . Limitations to Documentation: no limitations . Information obtained by: patient . 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 Tonight at around 9pm ate shrimp and clams with her partner. About an hour later began to have nausea, vomiting, and diarrhea has been able to keep down coffee. Her partner who ate same food does not have symptoms. No abdominal pain. Noted a 'burning' feeling in her lips and mouth as well as a rash on her chest. No chest pain or difficulty breathing. No prior reactions to seafood. She was in her usual state of health prior to this event. Related Data Home Medications Medication Instructions Recorded Confirmed ibuprofen 600 mg tablet 600 mg PO Q8H PRN pain #60 tabs 10/24/21 07/05/23 albuterol sulfate 90 mcg/actuation 2 puff inhalation Q6H PRN 02/21/23 07/05/23 aerosol inhaler (Proventil HFA) shortness of breath or wheezing #8.5 grams buspirone 7.5 mg tablet 7.5 mg PO BID #180 tabs 07/03/23 07/05/23 sertraline 50 mg tablet 75 mg (1.5 x 50 mg) PO DAILY #135 07/03/23 07/05/23 tabs trazodone 50 mg tablet 50 - 100 mg (1 - 2 x 50 mg) PO QHS 07/03/23 07/05/23 #90 tabs epinephrine 0.3 mg/0.3 mL 0.3 ml subcut Q5-15M PRN #2 ea 07/05/23 injection, auto-injector Previous Rx's Medication Instructions Recorded ibuprofen 600 mg tablet 600 mg PO Q8H PRN pain #60 tabs 10/24/21 albuterol sulfate 90 mcg/actuation 2 puff inhalation Q6H PRN 02/21/23 aerosol inhaler (Proventil HFA) shortness of breath or wheezing #8.5 grams buspirone 7.5 mg tablet 7.5 mg PO BID #180 tabs 07/03/23 sertraline 50 mg tablet 75 mg (1.5 x 50 mg) PO DAILY #135 07/03/23 tabs trazodone 50 mg tablet 50 - 100 mg (1 - 2 x 50 mg) PO QHS 07/03/23 #90 tabs epinephrine 0.3 mg/0.3 mL 0.3 ml subcut Q5-15M PRN #2 ea 07/05/23 injection, auto-injector Allergies Allergy/AdvReac Type Severity Reaction Status Date / Time grapefruit [Grapefruit] Allergy Severe HIVES Verified 07/05/23 01:19 Penicillins Allergy Severe AIRWAY Verified 07/05/23 01:19 CLOSES UP venom-honey bee Allergy Severe Swelling/Ed Verified 07/05/23 01:19 [bee venom (honey bee)] arabella egg Allergy Unverified 07/05/23 01:19 latex Allergy RASH, Verified 07/05/23 01:19 BREAKS OUT General MATTIE: 3 Review of Systems Narrative: see HPI Exam Narrative Exam Narrative: General: Alert, well appearing, well nourished, in no acute distress. Head: Normocephalic, atraumatic Neck: Trachea midline, ?Neck supple. ENT: ?MMM.? No oropharygeal lesions or exudate. No intraoral swelling. No lip swelling. Cardiac: ?RRR, no murmurs appreciated Resp: No respiratory distress. CTAB. Abd: ?Soft, non-distended, nontender Extremities: ?No deformities.? No peripheral edema. Neurologic: GCS 15. ? Moves all extremities freely against gravity Skin: Urticaria to chest. Medical Decision Making 33yo F with hx anaphylaxis to penicillin and bee venom presenting for possible allergic reaction to seafood. Tonight at around 9pm ate shrimp and clams with her partner. About an hour later began to have nausea, vomiting, and diarrhea. This has resolved and since then she has been able to keep down coffee. No abdominal pain. Her partner who ate same food does not have symptoms. Presents for a persistent 'burning' feeling in her lips and mouth as well as a rash on her chest. No chest pain or difficulty breathing at any point and no prior reactions to seafood. Hypertensive on arrival, vital signs otherwise reassuring. Reassuring exam; calm, well appearing, sipping coffee. No respiratory distress, no wheezing, no intraoral swelling. Suspect allergic reactions (scombroid also on differential though unlikely if all she consumed is truly shrimp and clams); regardless will treat with antihistamines. Given Efren adryl and famotidine. With no respiratory distress and no vomiting currently, will not give epinephrine at this time; only symptoms at present are oral tingling and chest rash. Not anaphylaxis at this time. On reassessment she reports her oral symptoms have resolved; rash is improving on exam. She requests discharge home which is reasonable. Refill on her epi-pen sent (she reports she is out at home). Instructed to followup with PCP for hypertension. Discharged home; discharge instructions and return precautions were reviewed with patient who verbalized understanding. All questions were answered and she is in full agreement with the plan. Quality:SDOH Health Related Social Needs: Health related social needs inadequate housing, food i nsecurity Health related social needs details patient did not an swer PFSH All Active Problems Allergic response (Acute) Abnormal uterine bleeding (Acute) Peripheral neuropathy (Acute) Major depressive disorder, recurrent (Chronic) Generalized anxiety disorder (Chronic) Hyperlipidemia (Chronic) Cigarette smoker (Chronic) Medical History COVID-19 (~07/2021) Asthma Surgical History S/P dilation and curettage For elective termination of S/P tonsillectomy (~2001) History of bilateral ligation of fallopian tubes (~11/2012) Family History Mother Cervical cancer Fibromyalgia Colon cancer Substance use disorder Father , at 46 of respiratory failure Multiple sclerosis Sister Substance abuse Multiple sclerosis Sister No problems noted. Sister Autism Brother Mentally challenged Multiple sclerosis Daughter IBS (irritable bowel syndrome) Daughter Autism Daughter Autism on the spectrum Daughter No problems noted. Maternal Grandfather Heart disease Maternal Grandmother Breast cancer Ovarian cancer Paternal Grandfather No problems noted. Paternal Grandmother , at 96 No problems noted. Social History Smoking/Tobacco Use Status: Current every day Tobacco Type: cigarettes Smoking risk assessment performed?: Yes Alcohol Intake: current Alcohol Intake frequency: holidays/special occasions only Drug use: Never Substance use type: does not use Housing: house Pets and animals: Yes Pets and animals: cat(s) Sexually active: Yes Duration: decline to answer Frequency: decline to answer Lyric/Bahai: No preference Special lyric needs: No Do you feel safe at home: Yes Do you feel safe in your relationship?: Yes Female Reproductive History Menstrual Duration of menses: 3-5 days control method: permanent sterilization Discharge Plan Disposition Patient Disposition: Home Condition: Good Discharge Details Clinical Impression: Allergic response Primary Care Provider: Neema Salinas ED Provider: Remedios Waldron Meds and New Rx's Prescriptions: New epinephrine 0.3 mg/0.3 mL auto-injector 0.3 ml subcut Q5-15M PRNQty: 2 0RF Rx Instructions: do not exceed 2 doses per episode Continued buspirone 7.5 mg tablet 7.5 mg PO BID Qty: 180 3RF Hold Instructions: Prescription Finished sertraline 50 mg tablet 75 mg PO DAILY Qty: 135 3RF Hold Instructions: Prescription Finished Rx Instructions: Take one and a half tablets daily trazodone 50 mg tablet 50 - 100 mg PO QHS Qty: 90 0RF Hold Instructions: Prescription Finished Rx Instructions: 1-2 tablets at bedtime albuterol sulfate [Proventil HFA] 90 mcg/actuation HFA aerosol inhaler 2 puff inhalation Q6H PRN (Reason: shortness of breath or wheezing) Qty: 8.5 3RF ibuprofen 600 mg tablet 600 mg PO Q8H PRN (Reason: pain) Qty: 60 0RF Discharge Instructions Instructions: General Allergic Reaction (ED) Additional Instructions: You can continue to take Benadryl and famotidine over the counter for symptoms; follow the directions on the bottle. Avoid clams or shrimp. Call your primary care doctor today to schedule an appointment within the next 5 days to follow up on your visit here. Mention at this visit that your blood pressure was high in the emergency department. Return to the emergency department for new or worsening symptoms including if your symptoms return, you have difficulty breathing, you begin vomiting, you have chest pain, or if you have any other concerns. Referrals: Neema Salinas NP [Primary Care Provider] -
[2023-07-05 01:20] VITALS: BP 182/92; PULSE 87; RESP 16; TEMP 36.2; O2SAT 98
[2023-07-05] MEDS: Famotidine 20 MG TAB 40 MG PO (01:26)
[2023-07-05] MEDS: diphenhydrAMINE 25 MG CAP 50 MG PO (01:26)
[2023-07-05 02:41] VITALS: PULSE 78; RESP 16; TEMP 36.7; O2SAT 95
== END 2023-07-05 02:43 | disposition home or self-care (01) ==
PROVIDERS: Emergency Provider Student in an Organized Health Care Education/Training Program; PCP Nurse Practitioner Family
DX: T78.02XA Anaphylactic reaction due to shellfish (crustaceans), initial encounter (principal)
CPT/HCPCS: 99283

== ENCOUNTER → 2023-07-11 00:30 | Outpatient (CLI) | payer MEDICAID, SELFPAY ==
--- NOTE | 2023-07-11 13:48 | DI.RAD_ITS ---
Exam(s) XR LUMBAR SPINE COMPLETE EXAM: XR LUMBAR SPINE COMPLETE CLINICAL HISTORY: low back pain, paresthesias,g62.9. TECHNIQUE: 2D digital imaging was performed. Five views. COMPARISON: CR LUMBAR SPINE AP, LAT from 11/14/2011 FINDINGS: BONES: No fracture or destructive lesion. Vertebral body heights are maintained. Mild facet hypertro phy at L5-S1.. DISKS: Intervertebral disc spaces are maintained. ALIGNMENT: Lumbar spinal alignment is within normal limits. SOFT TISSUE: Normal. IMPRESSION: Mild facet degenerative changes at L5-S1. Disc spaces are maintained. DATA REPOSITORY: RADIATION DOSE DELIVERED:
--- NOTE | 2023-07-11 14:07 | DI.US_ITS ---
Exam(s) US PELVIS TRANSVAGINAL EXAM: US PELVIS TRANSVAGINAL CLINICAL HISTORY: heavy bleeding, ? fibroids,N93.9 TECHNIQUE: Transabdominal and transvaginal imaging was performed using standard protocol. COMPARISON: CT CT ABDOMEN PELVIS W from 04/10/2022 FINDINGS: UTERUS: Retroflexed.. 7.6 x 4.7 x 5.3 cm Endometrium: 10 mm , homogeneous Myometrium: Unremarkable. Cervix: Nabothian cysts. OVARIES: Right: Cyst or mass: None. Left: Cyst or mass: None. DOPPLER: Color: Symmetric and uniform flow to both ovaries. No hyperemia. CUL-DE-SAC: Free fluid: None. IMPRESSION: 1. Normal-appearing uterus with endometrial stripe within normal limits. 2. Unremarkable bilateral ovaries. DATA REPOSITORY:
== END ==
PROVIDERS: PCP Nurse Practitioner Family; Visit Provider Nurse Practitioner Family
DX: N93.9 Abnormal uterine and vaginal bleeding, unspecified (principal)
CPT/HCPCS: 72110; 76830; 76856

== ENCOUNTER → 2023-07-15 00:45 | Outpatient (CLI) | payer MEDICAID, SELFPAY ==
--- NOTE | 2023-07-15 08:30 | DI.MRI_ITS ---
Exam(s) MR BRAIN WO/W EXAM: MR BRAIN WO/W CLINICAL HISTORY: neuropathy, fam hx of MS, PERIPHERAL NEUROPATHY, G62.9. TECHNIQUE: Multiplanar multisequence MRI of the brain was performed. CONTRAST MATERIAL: IV Contrast: 20 ML of Dotarem contrast administered. COMPARISON: MR MR BRAIN WO/W from 02/23/2021 FINDINGS: VENTRICLES AND EXTRA AXIAL SPACES: Normal in size and morphology for the patient's age. HEMORRHAGE: None. CEREBRAL PARENCHYMA: No focus of restricted diffusion to suggest acute infarct. No space-occupying le leigh identified. No abnormal high signal lesions in the white matter. Previously noted tiny lesio n in the high left parietal not seen on today's exam. Sub lenticular cystic lesion again noted which may represent a ventricular diverticulum. This is developmental. MIDLINE SHIFT: None. BRAINSTEM/CEREBELLUM: Normal. CALVARIUM: Normal. ENHANCEMENT: No suspicious enhancement identified. VISUALIZED PARANASAL SINUSES/MASTOIDS: Clear. Orbits: Unremarkable. Pituitary: Normal. Vasculature: Normal flow voids. IMPRESSION: Unremarkable MRI of the brain. No evidence of multiple sclerosis. DATA REPOSITORY:
[2023-07-15] MEDS: Normal Saline Flush 10 ML SYR IVP (14:44)
[2023-07-15] MEDS: Gadoterate meglumine 20 ML VIAL IVP (14:46)
== END ==
PROVIDERS: PCP Nurse Practitioner Family; Visit Provider Nurse Practitioner Family
DX: G62.9 Polyneuropathy, unspecified (principal)
CPT/HCPCS: 70553

== ENCOUNTER 2023-10-03 10:35 | Outpatient (REF) | payer MEDICAID, SELFPAY ==
[2023-10-04 15:46] LABS: Varicella Zoster DNA Result Negative ((See Note))
== END 2023-10-03 10:36 | disposition home or self-care (01) ==
LOC: LBN 10:35
PROVIDERS: PCP Nurse Practitioner Family; Visit Provider Nurse Practitioner Family
DX: B02.9 Zoster without complications (principal)
CPT/HCPCS: 87798

== ENCOUNTER 2023-10-19 23:55 | Emergency (ER) | payer MEDICAID, SELFPAY ==
[2023-10-20] VITALS: BP 128/81; PULSE 87; RESP 16; TEMP 36.6; O2SAT 95
[2023-10-20 00:09] VITALS: BP 128/81; PULSE 87; RESP 16; TEMP 36.6; O2SAT 95
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
[2023-10-20] MEDS: Lactated Ringers 1,000 ML 1000 ML IV (00:32)
[2023-10-20] MEDS: Ondansetron 4 MG/2 ML VIAL IVP (00:33)
[2023-10-20] MEDS: Ketorolac 15 MG/ML VIAL IVP (00:33)
[2023-10-20 00:40] LABS: Abs Immature Grans 0.05 10^3/uL (0.0-0.06); Absolute Basophil Count 0.03 10^3/uL (0.0-0.2); Absolute Eosinophil Count 0.12 10^3/uL (0.0-0.7); Absolute Monocyte Count 0.99 10^3/uL (0.1-0.8); Basophils % 0.2 %; Eosinophils % 0.8 %; HCT 41.7 % (36.0-46.0); HGB 14.1 g/dL (11.2-15.7); Immature Grans % 0.3 %; MCH 30.1 pg (27.0-33.0); MCHC 33.8 % (32.0-36.0); MCV 89 fL (80-95); MPV 12.3 fL (8.0-11.0); Monocytes % 6.4 %; Neutrophils % 76.3 %; Platelet Count 189 10^3/uL (130-400); RBC 4.69 10^6/uL (3.93-5.22); RDW 12.7 % (11.7-14.6); RDW-SD 41.4 fL; WBC 15.54 10^3/uL (4.4-10.8)
[2023-10-20 00:41] LABS: Bilirubin Negative (Negative); Blood Trace-intact (Negative); Clarity Clear (Clear); Glucose Negative (Negative); Ketones Negative (Negative); Leukocyte Esterase Negative (Negative); Nitrite Negative (Negative); Specific Gravity >= 1.030 (1.005-1.025); Urobilinogen 0.2 mg/dL (Up to 0.2); pH 5.5 (5-8)
[2023-10-20 00:43] LABS: Absolute Lymphocyte Count 2.49 10^3/uL (1.2-3.4); Absolute Neutrophil Count 11.86 10^3/uL (1.2-6.7)
[2023-10-20 00:47] LABS: Bacteria Negative HPF (Negative); C & S Indicated? No; Casts Negative LPF (Negative); Crystals Negative HPF (Negative); Epithelial Cells Moderate HPF (Negative); Mucus Negative (Negative); WBC Negative HPF (0-5)
[2023-10-20 00:49] LABS: ALT 22 U/L (14-59); AST 16 U/L (15-37); Albumin 3.9 g/dL (3.4-5.0); Alkaline Phosphatase 54 U/L (46-116); Anion Gap 12.6 mmol/L (3-11); BUN 14 mg/dL (7-18); Bilirubin, Total 0.5 mg/dL (0.2-1.0); CO2 23.4 mmol/L (21.0-32.0); CREATININE 0.9 mg/dL (0.55-1.02); Calcium 8.7 mg/dL (8.5-10.1); Chloride 104 mmol/L (98-107); Estimated GFR 86.03 (mL/min/1.73m2); Glucose 99 mg/dL (74-106); Lipase 36 U/L (16-77); Potassium 3.6 mmol/L (3.5-5.1); Sodium 140 mmol/L (136-145); Total Protein 7.7 g/dL (6.4-8.2)
--- NOTE | 2023-10-20 01:05 | DI.CT_ITS ---
Exam(s) CT ABDOMEN PELVIS W EXAM: CT ABDOMEN PELVIS W CLINICAL HISTORY: RLQ tenderness, w/ NVD. TECHNIQUE: Imaging Protocol: Axial computed tomography images with coronal and sagittal reformatted images were created and reviewed CONTRAST MATERIAL: Intravenous: Omnipaque-350 100cc Oral: None COMPARISON: CT CT ABDOMEN PELVIS W from 04/10/2022 FINDINGS: VISUALIZED LUNG BASES: No nodules nor pleural effusions evident. ABDOMEN: There is no ascites. LIVER: Mildly enlarged. There are no focal hepatic lesions evident. No dilated intrahepatic ducts. GALLBLADDER/BILIARY: No obvious gallbladder pathology. CBD is not dilated. PANCREAS: No evidence of pancreatic mass nor dilatation of the pancreatic duct. SPLEEN: Mild splenomegaly. No intrasplenic lesions. Splenic and portal veins are patent. ADRENALS: There are no significant adrenal masses. KIDNEYS:No cysts evident. No solid renal masses. No calculi nor hydronephrosis.. ABDOMINAL AORTA: Abdominal aorta is not enlarged. LYMPH NODES:There is no retroperitoneal nor paraaortic adenopathy. ABDOMINAL WALL: No evidence of significant anterior abdominal wall nor inguinal hernia. GI: No evidence of bowel obstruction but there are numerous fluid-filled mid-distal small bowel loops with upper normal diameters. Large part of the colon is also filled with fluid such as diarrhea sta te. Findings suggest gastroenteritis. PELVIS: GI: No evidence of appendicitis.No evidence of sigmoid diverticulitis. LYMPH NODES: There is no intrapelvic nor inguinal adenopathy. REPRODUCTIVE: Retroverted uterus. Corpus luteal cyst noted in right ovary measuring 1.6 x 1.5 cm. L eft ovary unremarkable. No prominent free fluid. URINARY BLADDER: No obvious abnormality OSSEOUS: Symmetrical sclerosis on both sides of the symphysis pubis consistent with osteitis symphysi s pubis. Also increased density on both sides of the sacroiliac joints, probably sacroiliitis. Ther e is no ankylosis. No fractures nor significant osseous lesions. IMPRESSION: 1. There is fluid throughout small bowel and colon consistent with diarrhea state such as gastroenter itis. No evidence of bowel obstruction nor free air nor abscess. 2. Collapsing corpus luteal cyst noted in the right ovary. 3. Mild hepatic splenomegaly. RADIATION DOSE DELIVERED: 1,240.6mGy.cm Total DLP DATA REPOSITORY: All CT scans at this facility are submitted to the National Radiology Data Registry (NRDR) Dose Index Registry (DIR) with the [employer] (ACR). RADIATION OPTIMIZATION: All CT scans at this facility use at least one of these dose optimization te chniques: automated exposure control; mA and/or kV adjustment per patient size (includes targeted exa ms where dose is matched to clinical indication); or iterative reconstruction.
[2023-10-20] MEDS: Omnipaque 350 MG/ML 100 ML BTL IJ (01:10)
[2023-10-20] MEDS: Normal Saline - Diluent 50 ML VIAL IJ (01:11)
[2023-10-20] MEDS: Normal Saline Flush 10 ML SYR IVP (01:11)
--- NOTE | 2023-10-20 01:33 | DI.VRAD_ITS ---
PROCEDURE INFORMATION: Exam: CT Abdomen And Pelvis With Contrast Exam date and time: 10/20/2023 12:57 AM Age: 33 years old Clinical indication: Nausea and vomiting; Abdominal pain; Right lower quadrant (rlq); Prior surgery; Surgery date: 6+ months; Surgery type: Tubes tied; Patient HX: Rlq tenderness, w/nvd TECHNIQUE: Imaging protocol: Computed tomography of the abdomen and pelvis with contrast. Radiation optimization: All CT scans at this facility use at least one of these dose optimization techniques: automated exposure control; mA and/or kV adjustment per patient size (includes targeted exams where dose is matched to clinical indication); or iterative reconstruction. Contrast material: [id number]; Contrast volume: 100 ml; Contrast route: INTRAVENOUS (IV); COMPARISON: CT ABDOMEN PELVIS W 04/10/2022 4:01 AM FINDINGS: Lungs: Lung bases clear. Liver: Normal appearing liver. Hepatomegaly, 17 cm craniocaudal dimension. Gallbladder and bile ducts: Gallbladder partially collapsed. No calcified gallstones seen. No biliary dilatation. Pancreas: Normal appearing pancreas. Spleen: Normal appearing spleen. Adrenal glands: Normal appearing adrenal glands. Kidneys and ureters: Normal appearing kidneys. No hydronephrosis. No obstructing ureteral stones. Stomach and bowel: No oral contrast. Stomach partially decompressed. Fluid throughout the small bowel. No small bowel dilatation to suggest obstruction. Colon completely evacuated of formed fecal material. Fluid throughout the colon. No evidence of diverticulitis or colitis. Appendix: Normal caliber fluid-filled appendix. No periappendiceal inflammatory change. Intraperitoneal space: Small amount of free fluid in the deep pelvis. No free air. Vasculature: Normal caliber abdominal aorta. Lymph nodes: No pathologically enlarged mesenteric, retroperitoneal, or pelvic sidewall lymph nodes. Urinary bladder: Urinary bladder partially collapsed but grossly unremarkable, as seen. Reproductive: Normal-sized uterus. Normal-sized ovaries. 2.0 cm x 0.7 cm peripherally enhancing right ovarian corpus luteum with adjacent fluid in the adnexal region and cul-de-sac of John. Two adnexal clips located in the left aspect of the cul-de-sac of John. Prior history of tubal ligation by report suggesting clip migration. Bones/joints: No acute fracture seen among the bones of the abdomen or pelvis. Soft tissues: No significant ventral or inguinal hernia. IMPRESSION: 1. Fluid throughout the small bowel and colon, nonspecific but commonly seen in the setting of diarrhea from any cause, including gastroenteritis. Clinical correlation recommended. 2. Collapsing right ovarian corpus luteum with a small amount of fluid in the right adnexal region and in the cul-de-sac of John. 3. Two migrated adnexal clips in the left aspect of the cul-de-sac of John. History of tubal ligation by report. 4. Hepatomegaly, 17 cm. Dictated and Authenticated by: Jeremías Benitez MD. Ordering:MELISSA Leslie MD
[2023-10-20] MEDS: Ondansetron O.D.T. 4 MG TABEF, 3 TABS/BTL PO (02:43)
== END 2023-10-20 02:46 | disposition home or self-care (01) ==
PROVIDERS: Emergency Provider Student in an Organized Health Care Education/Training Program; PCP Nurse Practitioner Family
DX: R11.2 Nausea with vomiting, unspecified (principal); R19.7 Diarrhea, unspecified; N83.11 Corpus luteum cyst of right ovary
CPT/HCPCS: 36415; 80053; 83690; 96360; 99285; 74177; 81003; 81015; 85025; 99284; J1885; J2405; J3490

== ENCOUNTER 2023-11-19 22:44 | Emergency (ER) | payer MEDICAID, SELFPAY ==
[2023-11-19 22:55] VITALS: BP 142/102; PULSE 103; RESP 18; TEMP 36.8; O2SAT 99
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
[2023-11-19] MEDS: Ketorolac 30 MG/ML VIAL IM (23:35)
[2023-11-19] MEDS: diazePAM 10 MG/2 ML SYR 5 MG IM (23:35)
[2023-11-19] MEDS: Lidocaine 5% Patch 1 PATCH TP (23:36)
[2023-11-19] MEDS: Cyclobenzaprine 10 MG TAB, 3 TABS/BTL PO (23:36)
--- NOTE | 2023-11-23 12:40 | NUR.NOTE ---
Accessed chart to get billing information for [facility]. Nursing Note:
== END 2023-11-19 23:46 | disposition home or self-care (01) ==
PROVIDERS: Emergency Provider Registered Nurse Emergency; PCP Nurse Practitioner Family
DX: M43.6 Torticollis (principal); S16.1XXA Strain of muscle, fascia and tendon at neck level, initial encounter; E78.5 Hyperlipidemia, unspecified; F17.210 Nicotine dependence, cigarettes, uncomplicated; X58.XXXA Exposure to other specified factors, initial encounter
CPT/HCPCS: 96372; 99284; 99283; J1885; J3360

== ENCOUNTER 2023-12-29 06:16 | Emergency (ER) | payer MEDICAID, SELFPAY ==
[2023-12-29 06:20] VITALS: BP 153/98; PULSE 77; RESP 14; TEMP 36.6; O2SAT 99
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
[2023-12-29] MEDS: Ondansetron O.D.T. 4 MG TABEF, 3 TABS/BTL PO (06:43)
[2023-12-29] MEDS: Ketorolac 30 MG/ML VIAL IM (06:43)
[2023-12-29] MEDS: Clindamycin 150 MG CAP, 12 CAPS/BTL 450 MG PO (06:44)
== END 2023-12-29 06:51 | disposition home or self-care (01) ==
PROVIDERS: Emergency Provider Student in an Organized Health Care Education/Training Program; PCP Nurse Practitioner Family
DX: K05.00 Acute gingivitis, plaque induced (principal); K02.9 Dental caries, unspecified; K08.89 Other specified disorders of teeth and supporting structures; E78.00 Pure hypercholesterolemia, unspecified; F31.9 Bipolar disorder, unspecified; F17.210 Nicotine dependence, cigarettes, uncomplicated
CPT/HCPCS: 64400; 96372; 99284; J1885

== ENCOUNTER 2024-03-21 00:09 | Emergency (ER) | payer MEDICAID, SELFPAY ==
[2024-03-21 00:15] VITALS: BP 153/97; PULSE 83; RESP 16; TEMP 36.9; O2SAT 96
[2024-03-21 00:20] VITALS: RESP 16
[2024-03-21] MEDS: Ketorolac 15 MG/ML VIAL IM (00:57)
[2024-03-21] MEDS: Acetaminophen 500 MG TAB 1000 MG PO (00:57)
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
[2024-03-21 01:44] LABS: COVID-19 PCR Negative (Negative); Influenza A PCR Negative (Negative); Influenza B PCR Negative (Negative); RSV PCR Negative (Negative)
[2024-03-21 01:45] LABS: Source Nasopharynx
[2024-03-21 02:02] VITALS: BP 142/72; PULSE 72; RESP 16; O2SAT 99
[2024-03-21] MEDS: Ondansetron O.D.T. 4 MG TABEF, 3 TABS/BTL PO (02:02)
== END 2024-03-21 02:03 | disposition home or self-care (01) ==
PROVIDERS: Emergency Provider Student in an Organized Health Care Education/Training Program; PCP Nurse Practitioner Family
DX: J06.9 Acute upper respiratory infection, unspecified (principal); J45.909 Unspecified asthma, uncomplicated; R03.0 Elevated blood-pressure reading, without diagnosis of hypertension; F17.210 Nicotine dependence, cigarettes, uncomplicated
CPT/HCPCS: 87637; 96372; 99284; 99283; J1885

== ENCOUNTER 2024-03-26 23:42 | Emergency (ER) | payer MEDICAID, SELFPAY ==
[2024-03-27] VITALS: BP 125/68; PULSE 91; RESP 18; O2SAT 97
[2024-03-27 00:46] LABS: COVID-19 PCR Negative (Negative); Influenza A PCR Negative (Negative); Influenza B PCR Negative (Negative); RSV PCR Negative (Negative)
[2024-03-27 00:54] LABS: Source Nasopharynx
[2024-03-27] MEDS: Inhaler, Assist Device 1 EACH MC (01:14)
[2024-03-27] MEDS: Albuterol HFA 8 GM 60 PUFF INH IH (01:14)
[2024-03-27 01:44] VITALS: BP 117/73; PULSE 77; RESP 18; TEMP 36; O2SAT 97
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
== END 2024-03-27 02:05 | disposition home or self-care (01) ==
PROVIDERS: Emergency Provider Student in an Organized Health Care Education/Training Program; PCP Nurse Practitioner Family
DX: J06.9 Acute upper respiratory infection, unspecified (principal); J45.909 Unspecified asthma, uncomplicated; F17.210 Nicotine dependence, cigarettes, uncomplicated
CPT/HCPCS: 87637; 99283

== ENCOUNTER 2024-04-28 22:57 | Emergency (ER) | payer MEDICAID, SELFPAY ==
[2024-04-28 22:59] VITALS: BP 132/91; PULSE 72; RESP 16; TEMP 36.6; O2SAT 99
--- NOTE | 2024-04-28 23:00 | DI.RAD_ITS ---
Exam(s) XR TOE LT GREAT EXAM: XR TOE LT GREAT CLINICAL HISTORY: Pain at first MTP joint. TECHNIQUE: 2D digital imaging was performed of the left great toe. Three images were obtained. AP, oblique and lateral views were obtained. COMPARISON: No exams were available for comparison FINDINGS: BONES: No acute fracture is present. No bony destructive lesion is seen. JOINTS: No dislocation present. The joint spaces are well maintained. SOFT TISSUE: Normal. IMPRESSION: Unremarkable radiographs of the left great toe. DATA REPOSITORY: RADIATION DOSE DELIVERED:
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
[2024-04-28] MEDS: Ibuprofen 800 MG TAB PO (23:08)
[2024-04-28] MEDS: Acetaminophen 500 MG TAB 1000 MG PO (23:08)
--- NOTE | 2024-04-28 23:56 | DI.VRAD_ITS ---
PROCEDURE INFORMATION: Exam: XR Left Toe(s) Exam date and time: 04/28/2024 11:18 PM Age: 34 years old Clinical indication: Toes; Left; Patient HX: Pain at the first mtp joint into foot TECHNIQUE: Imaging protocol: Radiologic exam of the left toes. Views: Minimum 2 views. COMPARISON: No relevant prior studies available. FINDINGS: Bones/joints: Normal. Soft tissues: Normal. IMPRESSION: No acute findings. Dictated and Authenticated by: Migel Wagner MD. Ordering:MELISSA Leslie MD
--- NOTE | 2024-04-29 00:13 | NUR.NOTE ---
I was in the patient chart documenting the orthopedic splint device walking boot as patient was removed from the ED tracker.
--- NOTE | 2024-04-29 09:42 | NUR.NOTE ---
Accessed chart for [facility] billing purposes. Nursing Note:
== END 2024-04-29 00:11 | disposition home or self-care (01) ==
PROVIDERS: Emergency Provider Student in an Organized Health Care Education/Training Program; PCP Nurse Practitioner Family
DX: S90.32XA Contusion of left foot, initial encounter (principal); W22.8XXA Striking against or struck by other objects, initial encounter
CPT/HCPCS: 99283; 73660

== ENCOUNTER 2024-07-30 23:03 | Emergency (ER) | payer MEDICAID, SELFPAY ==
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
[2024-07-30 23:08] VITALS: BP 137/108; PULSE 96; RESP 18; TEMP 36.3; O2SAT 96
[2024-07-30 23:10] VITALS: BP 137/108; PULSE 97
[2024-07-30 23:24] LABS: Abs Immature Grans 0.04 10^3/uL (0.0-0.06); Absolute Basophil Count 0.02 10^3/uL (0.0-0.2); Absolute Eosinophil Count 0.14 10^3/uL (0.0-0.7); Absolute Lymphocyte Count 2.26 10^3/uL (1.2-3.4); Absolute Monocyte Count 0.81 10^3/uL (0.1-0.8); Absolute Neutrophil Count 11.78 10^3/uL (1.2-6.7); Basophils % 0.1 %; Eosinophils % 0.9 %; HCT 47.1 % (36.0-46.0); HGB 15.9 g/dL (11.2-15.7); Immature Grans % 0.3 %; MCH 30.1 pg (27.0-33.0); MCHC 33.8 % (32.0-36.0); MCV 89 fL (80-95); MPV 12.2 fL (8.0-11.0); Monocytes % 5.4 %; Neutrophils % 78.3 %; Platelet Count 193 10^3/uL (130-400); RBC 5.28 10^6/uL (3.93-5.22); RDW 12.5 % (11.7-14.6); RDW-SD 41.3 fL; WBC 15.05 10^3/uL (4.4-10.8)
[2024-07-30 23:36] VITALS: PULSE 82; O2SAT 96
[2024-07-30] MEDS: Ketorolac 30 MG/ML VIAL IVP (23:38)
[2024-07-30] MEDS: Lactated Ringers 1,000 ML 1000 ML IV (23:38)
[2024-07-30] MEDS: Prochlorperazine 10 MG/2 ML VIAL IVP (23:38)
[2024-07-30 23:39] LABS: ALT 27 U/L (14-59); AST 20 U/L (15-37); Albumin 4.2 g/dL (3.4-5.0); Alkaline Phosphatase 52 U/L (46-116); BUN 14 mg/dL (7-18); Bilirubin, Total 0.48 mg/dL (0.2-1.0); CREATININE 0.9 mg/dL (0.55-1.02); Calcium 9.4 mg/dL (8.5-10.1); Chloride 103 mmol/L (98-107); Glucose 98 mg/dL (74-106); Lipase 34 U/L (<78); Magnesium 1.8 mg/dL (1.8-2.4); Potassium 3.9 mmol/L (3.5-5.1); Sodium 142 mmol/L (136-145)
[2024-07-30 23:40] VITALS: PULSE 79; O2SAT 95
[2024-07-30 23:47] LABS: Bilirubin Small (Negative); Blood Trace-intact (Negative); Clarity Clear (Clear); Glucose Negative (Negative); Ketones 15 mg/dL (Negative); Leukocyte Esterase Negative (Negative); Nitrite Negative (Negative); Specific Gravity >= 1.030 (1.005-1.025); pH 5.5 (5-8)
[2024-07-30 23:57] LABS: WBC 0-2 HPF (0-5)
[2024-07-30 23:58] LABS: Bacteria Few HPF (Negative); C & S Indicated? No; Casts Negative LPF (Negative); Crystals Negative HPF (Negative); Epithelial Cells Moderate HPF (Negative); Mucus Negative (Negative)
[2024-07-31] MEDS: Prochlorperazine 10 MG TAB PO (00:38)
== END 2024-07-31 00:39 | disposition home or self-care (01) ==
PROVIDERS: Emergency Provider Emergency Medicine; PCP Nurse Practitioner Family
DX: R10.9 Unspecified abdominal pain (principal); K52.9 Noninfective gastroenteritis and colitis, unspecified; E78.5 Hyperlipidemia, unspecified; F17.210 Nicotine dependence, cigarettes, uncomplicated
CPT/HCPCS: 80053; 83690; 96361; 96374; 96375; 99284; 81003; 81015; 83735; 85025; J0780; J1885

== ENCOUNTER 2024-10-26 21:38 | Emergency (ER) | payer MEDICAID, SELFPAY ==
[2024-10-26 21:41] VITALS: BP 160/93; PULSE 88; RESP 16; TEMP 36.8; O2SAT 98
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
[2024-10-26] MEDS: Mupirocin 2% Oint. 22 GM TUBE TP (22:24)
== END 2024-10-26 22:30 | disposition home or self-care (01) ==
PROVIDERS: Emergency Provider Nurse Practitioner Family; PCP Nurse Practitioner Family
DX: N61.1 Abscess of the breast and nipple (principal); L08.89 Other specified local infections of the skin and subcutaneous tissue
CPT/HCPCS: 99283; 99282; 76642; 82805